=== PATIENT | female | born 1950 | race Caucasian/White ===

== ENCOUNTER 2021-05-20 17:30 | Inpatient (IN) | payer MEDICAID, SELFPAY ==
[2021-05-20] VITALS (11 sets, daily range): BP systolic 97–108; BP diastolic 43–69; PULSE 96–110; RESP 12–28; TEMP 36.6–37.3; O2SAT 92–98; BMI 22.6
--- NOTE | 2021-05-20 17:38 | CTR_ITS ---
PROCEDURE INFORMATION: Exam: CT Abdomen And Pelvis With Contrast Exam date and time: 05/20/2021 5:38 PM Age: 71 years old Clinical indication: Abdominal tenderness; Patient HX: Abdomen tenderness with weakness; Additional info: Eval for infection TECHNIQUE: Imaging protocol: Computed tomography of the abdomen and pelvis with contrast. Radiation optimization: All CT scans at this facility use at least one of these dose optimization techniques: automated exposure control; mA and/or kV adjustment per patient size (includes targeted exams where dose is matched to clinical indication); or iterative reconstruction. Contrast material: OMNI 300; Contrast volume: 95 ml; Contrast route: INTRAVENOUS (IV); COMPARISON: No relevant prior studies available. RADIATION DOSE METRICS: Total DLP (mGy-cm): 844.16 FINDINGS: Lungs: Patchy parenchymal airspace opacities of the inferior right middle lobe and the inferior lingula. Pleural spaces: Trace left pleural effusion. Heart: Multichamber cardiac dilation. Liver: Several simple liver cysts. Gallbladder and bile ducts: Normal. No calcified stones. No ductal dilation. Pancreas: Normal. No ductal dilation. Spleen: Normal. No splenomegaly. Adrenal glands: Normal. No mass. Kidneys and ureters: Mild hydroureteronephrosis right collecting system. Unremarkable left collecting system. No renal stones. Stomach and bowel: Circumferential substantial distal rectal wall thickening is present. On coronal images there appears to be a fistula extending along the right lateral wall of the rectum with luminal narrowing of the rectum most conspicuous on images 17-19. Additional diffuse wall thickening changes of the left colon are noted which are nonspecific given the nondistention. Perirectal fat stranding changes. Additional wall thickening is notable at the rectosigmoid colonic junction which is nonspecific. No dilation of small bowel loops. Appendix: No evidence of appendicitis. Intraperitoneal space: No loculated intraperitoneal fluid collection. No free air. Vasculature: Central pulmonary artery filling defects are identified in segmental pulmonary artery branches of the right lower lobe conspicuous on axial series 2, image 2. Scattered atherosclerosis. No acute vascular occlusion. No aneurysm. Lymph nodes: Unremarkable. No enlarged lymph nodes. Urinary bladder: Unremarkable as visualized. Reproductive: Unremarkable as visualized. Bones/joints: Unremarkable. No acute fracture. Soft tissues: Mild diffuse body wall anasarca. CT/CT abdomen pelvis w con* [id number] IMPRESSION: 1. Pulmonary embolism is suspected. Recommend correlation with CT angiogram of the chest. 2. Rectosigmoid colonic mass with fistula is suspected. Proctocolitis secondary to inflammatory bowel disease not excluded. Correlation with endoscopy recommended.
[2021-05-20 17:54] LABS: Basophils % 0.2 %; Lymphocytes # 0.3 10^3/uL (0.8-4.8); Lymphocytes % 2.3 %; Mean Corpuscular HGB Conc 23.2 g/dL (30.0-36.0); Mean Corpuscular Hemoglobin 14.8 pg (28.0-34.0); Mean Corpuscular Volume 63.7 fl (81-99); Mean Platelet Volume 9.7 fL (7.4-10.4); Monocytes # 0.1 10^3/uL (0.2-0.9); Monocytes % 0.5 %; Neutrophils # 11.64 10^3/uL (1.8-7.7); Neutrophils % 96.1 %; Nucleated Red Blood Cells # 0.1 /100WBC; Nucleated Red Blood Cells % 0.8 %; Platelet Count 255 10^3/cmm (130-400); Red Blood Count 2.84 10^6/uL (4.1-5.3); Red Cell Distribution Width 22.8 % (12.1-15.1); White Blood Count 12.1 10^3/uL (4.0-10.0)
[2021-05-20 18:16] LABS: Alanine Aminotransferase 6 U/L (0-33); Albumin Level 2.4 g/dL (3.5-5.2); Alkaline Phosphatase 123 IU/L (35-105); Anion Gap 21.2 (5-19); Aspartate Amino Transferase 13 U/L (0-32); Blood Urea Nitrogen 22 mg/dL (8-23); Calcium 8.1 mg/dL (8.5-10.5); Carbon Dioxide 19 mmol/L (22-29); Chloride 99 mmol/L (98-107); Creatinine Clr Calc Pharmacy 49.8831; Globulin 3.5 g/dL (1.3-4.6); Glucose 101 mg/dL (65-115); Lipase 15 U/L (13-60); Osmolality Calculated 285 mOsm/kg (285-295); Potassium 3.2 mmol/L (3.5-5.1); Sodium 136 mmol/L (136-145); Total Bilirubin 0.2 mg/dL (0.15-1.2); Total Protein 5.9 g/dL (6.6-8.7)
[2021-05-20 18:19] LABS: Hematocrit 18.1 % (37.0-47.0); Hemoglobin 4.2 g/dL (11.5-15.3); Slide Review Slide Review Perform
[2021-05-20] MEDS: famotidine 20 mg/2 mL INJ IVP (18:40)
[2021-05-20] MEDS: sodium chloride 0.9% 1,000 ML 999 ML IV ×2 (18:40→19:32)
--- NOTE | 2021-05-20 18:44 | ECG_ITS ---
[facility] Test Date: 2021-05-20 Pat Name: Teresa Jha Department: Room: Gender: Female Sustainability Communicator: : 1950 Requested By: Cj Ceja Order Number: [id number] Cisco MD: Gretel Kunz M.D. Measurements Intervals [place] Rate: 101 P: 73 AR: 135 QRS: 35 QRSD: 78 T: -88 QT: 306 QTc: 398 Interpretive Statements SINUS TACHYCARD[address] ST DEVIATION AND MODERATE T-WAVE ABNORMALITY, CONSIDER LATERAL ISCHEMIA [-0.1+ mV T-WAVE IN I/aVL/V5/V6] No previous ECG available for comparison Electronically Signed On 05-21-2021 5:53:23 CLINICAL APPEALS RN by Gretel Kunz M.D. [id number]
[2021-05-20 18:45] LABS: Lactate (Lactic Acid level) 5.8 mmol/L (0.5-2.2)
--- NOTE | 2021-05-20 18:48 | ED_ITS ---
HPI - Weakness General: Chief complaint: Weakness Stated complaint: weakness Time Seen by Provider: 05/20/21 18:04 Course Vital Signs: Vital signs: Vital Signs Temperature 99.2 F 05/20/21 17:31 Pulse Rate 110 H 05/20/21 17:31 Respiratory Rate 15 05/20/21 17:31 Blood Pressure 102/45 05/20/21 17:31 Pulse Oximetry 92 05/20/21 17:31 MDM - Weakness Lab Data : 05/20/21 16:52 05/20/21 16:52 Laboratory Results WBC 12.1 10^3/uL (4.0-10.0) H 05/20/21 16:52 RBC 2.84 10^6/uL (4.1-5.3) L 05/20/21 16:52 Hgb 4.2 g/dL (11.5-15.3) L* 05/20/21 16:52 Hct 18.1 % (37.0-47.0) L* 05/20/21 16:52 MCV 63.7 fl (81-99) L 05/20/21 16:52 MCH 14.8 pg (28.0-34.0) L 05/20/21 16:52 MCHC 23.2 g/dL (30.0-36.0) L 05/20/21 16:52 RDW 22.8 % (12.1-15.1) H 05/20/21 16:52 Plt Count 255 10^3/cmm (130-400) 05/20/21 16:52 MPV 9.7 fL (7.4-10.4) 05/20/21 16:52 Neut % (Auto) 96.1 % 05/20/21 16:52 Lymph % (Auto) 2.3 % 05/20/21 16:52 [place] % (Auto) 0.5 % 05/20/21 16:52 Eos % (Auto) 0.0 % 05/20/21 16:52 Baso % (Auto) 0.2 % 05/20/21 16:52 Neut # (Auto) 11.64 10^3/uL (1.8-7.7) H 05/20/21 16:52 Lymph # (Auto) 0.3 10^3/uL (0.8-4.8) L 05/20/21 16:52 [place] # (Auto) 0.1 10^3/uL (0.2-0.9) L 05/20/21 16:52 Eos # (Auto) 0.0 10^3/uL (0.0-0.8) 05/20/21 16:52 Baso # (Auto) 0.0 10^3/uL (0.0-0.1) 05/20/21 16:52 Nucleated RBC % (auto) 0.8 % 05/20/21 16:52 Nucleated RBCs # 0.1 /100WBC 05/20/21 16:52 Sodium 136 mmol/L (136-145) 05/20/21 16:52 Potassium 3.2 mmol/L (3.5-5.1) L 05/20/21 16:52 Chloride 99 mmol/L (98-107) 05/20/21 16:52 Carbon Dioxide 19 mmol/L (22-29) L 05/20/21 16:52 Anion Gap 21.2 (5-19) H 05/20/21 16:52 BUN 22 mg/dL (8-23) 05/20/21 16:52 Creatinine 0.8 mg/dL (0.5-0.9) 05/20/21 16:52 GFR Calculation Not Reportable 05/20/21 16:52 Glucose 101 mg/dL (65-115) 05/20/21 16:52 Calculated Osmolality 285 mOsm/kg (285-295) 05/20/21 16:52 Lactate 5.8 mmol/L (0.5-2.2) H* 05/20/21 18:13 Calcium 8.1 mg/dL (8.5-10.5) L 05/20/21 16:52 Total Bilirubin 0.2 mg/dL (0.15-1.2) 05/20/21 16:52 AST 13 U/L (0-32) 05/20/21 16:52 ALT 6 U/L (0-33) 05/20/21 16:52 Alkaline Phosphatase 123 IU/L (35-105) H 05/20/21 16:52 Total Protein 5.9 g/dL (6.6-8.7) L 05/20/21 16:52 Albumin 2.4 g/dL (3.5-5.2) L 05/20/21 16:52 Globulin 3.5 g/dL (1.3-4.6) 05/20/21 16:52 Lipase 15 U/L (13-60) 05/20/21 16:52 Discharge Plan Discharge Condition: Stable Coding Level of Care Code ED Supply Chain Buyer for Berenice Penaloza
--- NOTE | 2021-05-20 18:53 | ED_ITS ---
HPI - General Adult General: Chief complaint: Weakness Stated complaint: weakness Time Seen by Provider: 05/20/21 18:04 History of Present Illness: Patient is a six 71-year-old female with no known past medical history presents the emergency room with concerns of for diarrhea for the last 2 years now getting worse. Patient tells me that yesterday she had a syncopal episode while at home. Patient then presents the emergency room for evaluation. Patient reports right-sided facial bruise. Patient denies any associate chest pain, shortness breath or palpitations, nausea/vomiting, fever/chills. Patient has been having watery mildly bloody diarrhea for the last 2 years. Patient denies change in stool consistency. Patient has any recent antibiotics. No recent anticoagulation use. Onset:2 days syncope/fall, 2 years of chronic diarrhea Duration:ongoing Location:home Severity:moderate Associated symptoms: Deny chest pain, dyspnea, nausea, rash, palpitations or vomiting Review of Systems Const: Denies: fever(s) or chills Eyes: Denies: change in vision ENMT: Denies: mouth pain Card: Denies: chest pain or palpitations Resp: Denies: dyspnea or non-productive cough GI: Reports: diarrhea; Denies: abdominal pain, nausea or vomiting : Denies: dysuria Musc: Denies: extremity pain Skin/Breast: Denies: rash or new lesions Neuro: Reports: other (+syncope); Denies: weakness in extremities Psych: Reports: other (Normal mood) Kevyn/Lymph: Denies: easy bruising PFS ED PFSH: Medical History (Updated 05/20/21 @ 22:42 by Cj Ceja MD) Diarrhea Social History (Updated 05/20/21 @ 18:56 by Cj Ceja MD) Smoking and tobacco status: never smoked Alcohol intake: never Substance/Drug Use: never Physical Exam Const: COMMON NORMALS: alert HENMT: COMMON NORMALS: atraumatic HEAD & SCALP: atraumatic MOUTH: moist mucous membranes abnormal Eye: COMMON NORMALS: EOMs intact bilaterally CONJUNCTIVA: Yes other (+pale conjunctiva) Neck/C-Spine: COMMON NORMALS: full ROM and supple Resp: COMMON NORMALS: normal respiratory effort and clear to auscultation bilaterally AUSCULTATION: clear to auscultation bilaterally Cardio: RATE: tachycardic GI: COMMON NORMALS: Soft to palpation and non-tender PALPATION: Yes Soft to palpation OTHER: No focal TTP. NO guarding rebound, guarding, rigidity. No CVA tenderness to percussion. Neg Steiner/Neg McBurney's point tenderness, no suprabupic tenderness to palpation. : OTHER: +hemoocult wine color stool Extremity: COMMON NORMALS: full ROM Neuro: SENSORIUM/ORIENTATION: Yes alert MOTOR EXAM: No Abnormal motor strength present and Other motor observations present (no focal motor deficits) Psych: COMMON NORMALS: speech normal SPEECH: Yes normal speech MOOD & AFFECT: Yes euthymic mood Skin: NARRATIVE SKIN EXAM: +R facial periorbital abrsion Course Vital Signs: Vital signs: Vital Signs Temperature 97.9 F 05/20/21 21:36 Pulse Rate 96 05/20/21 22:00 Respiratory Rate 16 05/20/21 22:00 Blood Pressure 97/53 05/20/21 22:00 Pulse Oximetry 98 05/20/21 22:00 MDM - General Adult Medical Decision Making Patient is a 71-year-old female with history chronic diarrhea who presents the emergency room for concerns for recent syncope 2 days ago with fall. On physical exam, patient appears to be dry, has pale conjunctiva and is mildy tachycardiac. No focal abdominal tenderness palpation. +hemoocult brown and wine color stool. WBC 12.1. Hemoglobin 4.2. Patient received 2 units of hemoglobin in the emergency room. K of 3.2. S/p 40mEQ of K PO. Initial lactate of 5.8 in the setting of complaints of lower abdominal pain, will cover empirically with vancomycin and Zosyn. S/p 2L of NS CT abdomen pelvis showed rectosigmoid inflammation with fistula. Given elevated lactic acid and low hemoglobin and PE filling defects on CT abd+pelvis, decision was made to order CTA chest+abd. patient was found to have bilateral PE. No signs of bowel ischemia or acute GI bleed. Given low hemoglobin, decision was made to defer anticoagulation. No signs of massive or submassive PE. Case discussed with Dr. Ovalles for rectosigmoid fistula. Provider will follow patient upo admission. Disposition: admission Lab Data : 05/20/21 16:52 05/20/21 16:52 Radiology Impressions Abdomen/Pelvis CT 05/20/21 17:38 IMPRESSION: 1. Pulmonary embolism is suspected. Recommend correlation with CT angiogram of the chest. 2. Rectosigmoid colonic mass with fistula is suspected. Proctocolitis secondary to inflammatory bowel disease not excluded. Correlation with endoscopy recommended. ADDENDUM: 05/20/212012 THIS REPORT CONTAINS FINDINGS THAT MAY BE CRITICAL TO PATIENT CARE. The findings were verbally communicated via telephone conference with CJ CEJA at 8:11 PM OPERATOR ASSISTANT I CEMENTING on 05/20/2021. The findings were acknowledged and understood. Face CT 05/20/21 18:53 IMPRESSION: 1. No acute fracture of the facial bones. 2. Mild mucoperiosteal thickening in the the right and left ethmoid and maxillary sinuses. 3. Incidental/nonacute findings are listed in the report. Head CT 05/20/21 18:53 IMPRESSION: 1. No acute abnormality of the brain. 2. Mild mucoperiosteal thickening in the the visualized ethmoid sinuses. 3. Incidental/nonacute findings are listed in the report. Chest/Abdomen/Pelvis CTA 05/20/21 19:55 IMPRESSION: 1. Positive for bilateral pulmonary embolism. 2. No convincing CT angiogram evidence of significant right heart strain. 3. Clustered tree-in-bud nodular foci in the lateral right upper lobe which could represent post infectious change, or represent acute pneumonitis features. IMPRESSION: 1. Negative for active gastrointestinal bleeding. 2. Redemonstration of possible rectosigmoid colonic mass and possible rectal/perirectal fistula. Laboratory Results WBC 12.1 10^3/uL (4.0-10.0) H 05/20/21 16:52 RBC 2.84 10^6/uL (4.1-5.3) L 05/20/21 16:52 Hgb 4.2 g/dL (11.5-15.3) L* 05/20/21 16:52 Hct 18.1 % (37.0-47.0) L* 05/20/21 16:52 MCV 63.7 fl (81-99) L 05/20/21 16:52 MCH 14.8 pg (28.0-34.0) L 05/20/21 16:52 MCHC 23.2 g/dL (30.0-36.0) L 05/20/21 16:52 RDW 22.8 % (12.1-15.1) H 05/20/21 16:52 Plt Count 255 10^3/cmm (130-400) 05/20/21 16:52 MPV 9.7 fL (7.4-10.4) 05/20/21 16:52 Neut % (Auto) 96.1 % 05/20/21 16:52 Lymph % (Auto) 2.3 % 05/20/21 16:52 [place] % (Auto) 0.5 % 05/20/21 16:52 Eos % (Auto) 0.0 % 05/20/21 16:52 Baso % (Auto) 0.2 % 05/20/21 16:52 Neut # (Auto) 11.64 10^3/uL (1.8-7.7) H 05/20/21 16:52 Lymph # (Auto) 0.3 10^3/uL (0.8-4.8) L 05/20/21 16:52 [place] # (Auto) 0.1 10^3/uL (0.2-0.9) L 05/20/21 16:52 Eos # (Auto) 0.0 10^3/uL (0.0-0.8) 05/20/21 16:52 Baso # (Auto) 0.0 10^3/uL (0.0-0.1) 05/20/21 16:52 Nucleated RBC % (auto) 0.8 % 05/20/21 16:52 Nucleated RBCs # 0.1 /100WBC 05/20/21 16:52 Sodium 136 mmol/L (136-145) 05/20/21 16:52 Potassium 3.2 mmol/L (3.5-5.1) L 05/20/21 16:52 Chloride 99 mmol/L (98-107) 05/20/21 16:52 Carbon Dioxide 19 mmol/L (22-29) L 05/20/21 16:52 Anion Gap 21.2 (5-19) H 05/20/21 16:52 BUN 22 mg/dL (8-23) 05/20/21 16:52 Creatinine 0.8 mg/dL (0.5-0.9) 05/20/21 16:52 GFR Calculation Not Reportable 05/20/21 16:52 Glucose 101 mg/dL (65-115) 05/20/21 16:52 Calculated Osmolality 285 mOsm/kg (285-295) 05/20/21 16:52 Lactate 5.8 mmol/L (0.5-2.2) H* 05/20/21 18:13 Calcium 8.1 mg/dL (8.5-10.5) L 05/20/21 16:52 Total Bilirubin 0.2 mg/dL (0.15-1.2) 05/20/21 16:52 AST 13 U/L (0-32) 05/20/21 16:52 ALT 6 U/L (0-33) 05/20/21 16:52 Alkaline Phosphatase 123 IU/L (35-105) H 05/20/21 16:52 Troponin T Baseline 22 ng/L (0-10) H 05/20/21 16:52 Total Protein 5.9 g/dL (6.6-8.7) L 05/20/21 16:52 Albumin 2.4 g/dL (3.5-5.2) L 05/20/21 16:52 Globulin 3.5 g/dL (1.3-4.6) 05/20/21 16:52 Lipase 15 U/L (13-60) 05/20/21 16:52 Blood Type A Positive 05/20/21 18:28 Rho(D) Type Positive 05/20/21 18:28 Antibody Screen Negative 05/20/21 18:28 Crossmatch See Detail 05/20/21 18:28 Imaging Data Other Imaging: Radiologist's impression: [address] [address] [address] Scan Report Signed Patient: Teresa Jha Unit #: [id number] : 1950 Age/Sex: 71 / F ADM Date: 05/20/21 Loc: ER Room/Bed: Attending Dr: Ordering Provider/Ordering MD: Cj Ceja MD Date of Service: 05/20/21 Procedure(s): CT angio chest abdomen pelvis Accession Number(s): [id number] Report Number: [id number] PROCEDURE INFORMATION: Exam: CTA Chest With Contrast Exam date and time: 05/20/2021 7:55 PM Age: 71 years old Clinical indication: Abnormal findings; Abnormal diagnostic tests; Abnormal ekg; Abnormal lab test; Other: N/a; Patient HX: Very low hemoglobin. Bloody diarrhea. ; Additional info: Eval for bleeding TECHNIQUE: Imaging protocol: Computed tomographic angiography of the chest with contrast. 3D rendering (Not supervised by radiologist): MIP and/or 3D reconstructed images were created by the technologist. Radiation optimization: All CT scans at this facility use at least one of these dose optimization techniques: automated exposure control; mA and/or kV adjustment per patient size (includes targeted exams where dose is matched to clinical indication); or iterative reconstruction. Contrast material: OMNI 350; Contrast volume: 95 ml; Contrast route: INTRAVENOUS (IV);? COMPARISON: CT abdomen pelvis w con* [id number] 05/20/2021 7:11 PM RADIATION DOSE METRICS: Total DLP (mGy-cm): 955.02 FINDINGS: Pulmonary arteries: Bilateral pulmonary artery filling defects are identified with lobar and segmental level defects involving bilateral lower lobes and also left upper lobe. Aorta: Unremarkable. No aortic aneurysm. No aortic dissection. Lungs: [id number] severity emphysematous lung changes. Mild diffuse bronchial wall thickening. Clustered tree-in-bud nodular foci in the lateral right upper lobe. Calcified granulomas in the right middle lobe. Pleural spaces: Trace bilateral pleural effusions. Heart: There is multichamber cardiac dilation most significantly involving left ventricle. Negative for pericardial effusion. Heart RV/LV ratio: RV/LV ratio is less than 0.9. Lymph nodes: Unremarkable. No enlarged lymph nodes. Diaphragm: Moderate sized hiatal hernia. Bones/joints: Unremarkable. No acute fracture. Soft tissues: Unremarkable. PROCEDURE INFORMATION: Exam: CTA Abdomen and Pelvis With Contrast Exam date and time: 05/20/2021 7:55 PM Age: 71 years old Clinical indication: Abnormal findings; Abnormal diagnostic tests; Abnormal ekg; Abnormal lab test; Other: N/a; Patient HX: Very low hemoglobin. Bloody diarrhea. ; Additional info: Eval for bleeding TECHNIQUE: Imaging protocol: Computed tomographic angiography of the abdomen and pelvis with contrast material. 3D rendering (Not supervised by radiologist): MIP and/or 3D reconstructed images were created by the technologist. Radiation optimization: All CT scans at this facility use at least one of these dose optimization techniques: automated exposure control; mA and/or kV adjustment per patient size (includes targeted exams where dose is matched to clinical indication); or iterative reconstruction. Contrast material: OMNI 350; Contrast volume: 95 ml; Contrast route: INTRAVENOUS (IV);? COMPARISON: CT abdomen pelvis w con* [id number] 05/20/2021 7:11 PM RADIATION DOSE METRICS: Total DLP (mGy-cm): 955.02 FINDINGS: Diaphragm: Moderate to large size hiatal hernia. Aorta: Scattered plaques of abdominal aorta. No aneurysm. No dissection. Celiac trunk and mesenteric arteries: No occlusion or significant stenosis. Renal arteries: No occlusion or significant stenosis. Right iliac arteries: No occlusion or significant stenosis. Left iliac arteries: No occlusion or significant stenosis. Liver: Multiple simple cysts within the liver. Gallbladder and bile ducts: Unremarkable. No calcified stones. No ductal dilation. Pancreas: Unremarkable. No mass. No ductal dilation. Spleen: Unremarkable. No splenomegaly. Adrenal glands: Unremarkable. No mass. Kidneys and ureters: Mild severity right-sided hydroureteronephrosis with loss of visualization of the distal ureter segment. Stomach and bowel: Thick-walled appearance of the rectosigmoid colon. Possible rectal fistula in the right lateral and posterior wall. Perirectal fat stranding changes. No extravasation of contrast into the bowel lumen identified. Appendix: No evidence of appendicitis. Intraperitoneal space: No free intraperitoneal air identified. Lymph nodes: Unremarkable. No enlarged lymph nodes. Urinary bladder: Unremarkable. No mass. Reproductive: Unremarkable as visualized. Bones/joints: No acute fracture. No dislocation. Soft tissues: Mild body wall anasarca. CT/CT angio chest abdomen pelvis IMPRESSION: 1. Positive for bilateral pulmonary embolism. 2. No convincing CT angiogram evidence of significant right heart strain. 3. Clustered tree-in-bud nodular foci in the lateral right upper lobe which could represent post infectious change, or represent acute pneumonitis features. ? ? IMPRESSION: 1. Negative for active gastrointestinal bleeding. 2. Redemonstration of possible rectosigmoid colonic mass and possible rectal/perirectal fistula. ? Dictated By: Tyler Greene Signed By: Tyler Greene Signed Date/Time: 05/20/212237 DD/ 54 Discharge Plan Discharge Patient Disposition: Admitted As Inpatient Clinical Impression: Anemia, Ulcerative rectosigmoiditis with fistula, Acute proctitis, Syncope, Diarrhea, Pulmonary embolism, Hypokalemia, Hypocalcemia Condition: Stable Coding Level of Care Code ED Resource Room Special Education Teacher for Chg Fwd Exam Comprehensive
--- NOTE | 2021-05-20 18:53 | CTR_ITS ---
PROCEDURE INFORMATION: Exam: CT Maxillofacial Without Contrast Exam date and time: 05/20/2021 6:53 PM Age: 71 years old Clinical indication: Injury or trauma; Blunt trauma (contusions or hematomas); Orbit/periorbital; Right; Patient HX: Fall with laceration to R periorbital area TECHNIQUE: Imaging protocol: Computed tomography images of the face without contrast. Sagittal and coronal reformatted images were created and reviewed. Radiation optimization: All CT scans at this facility use at least one of these dose optimization techniques: automated exposure control; mA and/or kV adjustment per patient size (includes targeted exams where dose is matched to clinical indication); or iterative reconstruction. COMPARISON: CT head wo con* [id number] 05/20/2021 7:06 PM RADIATION DOSE METRICS: Total DLP (mGy-cm): 673.56 FINDINGS: Orbital cavity: Orbits are normal. Globes are unremarkable. Bones/joints: Mild degenerative changes in the visualized spine. Right and left temporomandibular joints are intact. Right and left pterygoid plates are intact. No acute fracture. Paranasal sinuses: Mild mucoperiosteal thickening in the the right and left ethmoid and maxillary sinuses. Other paranasal sinuses are clear. Mastoid air cells: Visualized mastoid air cells are clear. Soft tissues: .No soft tissue swelling. No radiopaque foreign body. Vasculature: Atherosclerotic changes in the visualized arteries. Brain: No acute intracranial hemorrhage. No acute infarct. No intra-axial or extra-axial masses. Mcdaniels-white matter differentiation is preserved. No cerebral edema. No extra-axial fluid collections. No midline shift. The nasal septum is midline. Ventricles: No hydrocephalus. Dental: The patient is missing multiple teeth. Cavitary disease and periodontal disease in multiple remaining teeth. CT/CT facial bones wo con* [id number] IMPRESSION: 1. No acute fracture of the facial bones. 2. Mild mucoperiosteal thickening in the the right and left ethmoid and maxillary sinuses. 3. Incidental/nonacute findings are listed in the report.
--- NOTE | 2021-05-20 18:53 | CTR_ITS ---
PROCEDURE INFORMATION: Exam: CT Head Without Contrast Exam date and time: 05/20/2021 6:53 PM Age: 71 years old Clinical indication: Injury or trauma; Fall; Blunt trauma (contusions or hematomas) TECHNIQUE: Imaging protocol: Computed tomography of the head without contrast. Sagittal and coronal reformatted images were created and reviewed. Radiation optimization: All CT scans at this facility use at least one of these dose optimization techniques: automated exposure control; mA and/or kV adjustment per patient size (includes targeted exams where dose is matched to clinical indication); or iterative reconstruction. COMPARISON: No relevant prior studies available. RADIATION DOSE METRICS: Total DLP (mGy-cm): 721.1 FINDINGS: Brain: No acute intracranial hemorrhage. No acute infarct. No intra-axial or extra-axial masses. Mcdaniels-white matter differentiation is preserved. No cerebral edema. No extra-axial fluid collections. No midline shift. No evidence for Chiari 1 malformation. Cerebral ventricles: No hydrocephalus. Paranasal sinuses: Mild mucoperiosteal thickening in the the visualized ethmoid sinuses. Mastoid air cells: Visualized mastoid air cells are clear. Orbital cavity: No acute abnormality in the visualized orbits. Vasculature: Atherosclerotic changes in the visualized arteries. Bones/joints: No acute fracture. Soft tissues: No acute abnormality of the extracranial soft tissues. CT/CT head wo con* [id number] IMPRESSION: 1. No acute abnormality of the brain. 2. Mild mucoperiosteal thickening in the the visualized ethmoid sinuses. 3. Incidental/nonacute findings are listed in the report.
[2021-05-20] MEDS: iohexol 300 mg/mL 100 mL Btl IV (19:07)
[2021-05-20] MEDS: piperacillin-tazobactam 4.5 GM in sodium chloride 0.9% (plus) 50 ML IV (19:21)
[2021-05-20] MEDS: vancomycin 1,000 MG in sodium chloride 0.9% 250 ML 250 MG IV (19:21)
--- NOTE | 2021-05-20 19:55 | CTR_ITS ---
PROCEDURE INFORMATION: Exam: CTA Chest With Contrast Exam date and time: 05/20/2021 7:55 PM Age: 71 years old Clinical indication: Abnormal findings; Abnormal diagnostic tests; Abnormal ekg; Abnormal lab test; Other: N/a; Patient HX: Very low hemoglobin. Bloody diarrhea. ; Additional info: Eval for bleeding TECHNIQUE: Imaging protocol: Computed tomographic angiography of the chest with contrast. 3D rendering (Not supervised by radiologist): MIP and/or 3D reconstructed images were created by the technologist. Radiation optimization: All CT scans at this facility use at least one of these dose optimization techniques: automated exposure control; mA and/or kV adjustment per patient size (includes targeted exams where dose is matched to clinical indication); or iterative reconstruction. Contrast material: OMNI 350; Contrast volume: 95 ml; Contrast route: INTRAVENOUS (IV); COMPARISON: CT abdomen pelvis w con* [id number] 05/20/2021 7:11 PM RADIATION DOSE METRICS: Total DLP (mGy-cm): 955.02 FINDINGS: Pulmonary arteries: Bilateral pulmonary artery filling defects are identified with lobar and segmental level defects involving bilateral lower lobes and also left upper lobe. Aorta: Unremarkable. No aortic aneurysm. No aortic dissection. Lungs: [id number] severity emphysematous lung changes. Mild diffuse bronchial wall thickening. Clustered tree-in-bud nodular foci in the lateral right upper lobe. Calcified granulomas in the right middle lobe. Pleural spaces: Trace bilateral pleural effusions. Heart: There is multichamber cardiac dilation most significantly involving left ventricle. Negative for pericardial effusion. Heart RV/LV ratio: RV/LV ratio is less than 0.9. Lymph nodes: Unremarkable. No enlarged lymph nodes. Diaphragm: Moderate sized hiatal hernia. Bones/joints: Unremarkable. No acute fracture. Soft tissues: Unremarkable. PROCEDURE INFORMATION: Exam: CTA Abdomen and Pelvis With Contrast Exam date and time: 05/20/2021 7:55 PM Age: 71 years old Clinical indication: Abnormal findings; Abnormal diagnostic tests; Abnormal ekg; Abnormal lab test; Other: N/a; Patient HX: Very low hemoglobin. Bloody diarrhea. ; Additional info: Eval for bleeding TECHNIQUE: Imaging protocol: Computed tomographic angiography of the abdomen and pelvis with contrast material. 3D rendering (Not supervised by radiologist): MIP and/or 3D reconstructed images were created by the technologist. Radiation optimization: All CT scans at this facility use at least one of these dose optimization techniques: automated exposure control; mA and/or kV adjustment per patient size (includes targeted exams where dose is matched to clinical indication); or iterative reconstruction. Contrast material: OMNI 350; Contrast volume: 95 ml; Contrast route: INTRAVENOUS (IV); COMPARISON: CT abdomen pelvis w con* [id number] 05/20/2021 7:11 PM RADIATION DOSE METRICS: Total DLP (mGy-cm): 955.02 FINDINGS: Diaphragm: Moderate to large size hiatal hernia. Aorta: Scattered plaques of abdominal aorta. No aneurysm. No dissection. Celiac trunk and mesenteric arteries: No occlusion or significant stenosis. Renal arteries: No occlusion or significant stenosis. Right iliac arteries: No occlusion or significant stenosis. Left iliac arteries: No occlusion or significant stenosis. Liver: Multiple simple cysts within the liver. Gallbladder and bile ducts: Unremarkable. No calcified stones. No ductal dilation. Pancreas: Unremarkable. No mass. No ductal dilation. Spleen: Unremarkable. No splenomegaly. Adrenal glands: Unremarkable. No mass. Kidneys and ureters: Mild severity right-sided hydroureteronephrosis with loss of visualization of the distal ureter segment. Stomach and bowel: Thick-walled appearance of the rectosigmoid colon. Possible rectal fistula in the right lateral and posterior wall. Perirectal fat stranding changes. No extravasation of contrast into the bowel lumen identified. Appendix: No evidence of appendicitis. Intraperitoneal space: No free intraperitoneal air identified. Lymph nodes: Unremarkable. No enlarged lymph nodes. Urinary bladder: Unremarkable. No mass. Reproductive: Unremarkable as visualized. Bones/joints: No acute fracture. No dislocation. Soft tissues: Mild body wall anasarca. CT/CT angio chest abdomen pelvis IMPRESSION: 1. Positive for bilateral pulmonary embolism. 2. No convincing CT angiogram evidence of significant right heart strain. 3. Clustered tree-in-bud nodular foci in the lateral right upper lobe which could represent post infectious change, or represent acute pneumonitis features. IMPRESSION: 1. Negative for active gastrointestinal bleeding. 2. Redemonstration of possible rectosigmoid colonic mass and possible rectal/perirectal fistula.
[2021-05-20 20:12] LABS: Troponin(5th) Baseline 22 ng/L (0-10)
--- NOTE | 2021-05-20 20:46 | PC.NURSE ---
verified blood with Gregoria MADDEN pt signed consent to receive blood
--- NOTE | 2021-05-20 20:54 | ECG_ITS ---
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 Measurements Intervals [place] Rate: 105 P: 83 PA: 120 QRS: 49 QRSD: 75 T: 37 QT: 350 QTc: 464 Interpretive Statements SINUS TACHYCARDIA WITH FREQUENT SUPRAVENTRICULAR PREMATURE COMPLEXES IN A BIGEMINAL PATTERN NONSPECIFIC ST & T-WAVE ABNORMALITY ABNORMAL RHYTHM ECG Compared to ECG 05/20/2021 19:29:19 Possible ischemia no longer present T-wave abnormality still present Electronically Signed On 05-21-2021 6:02:28 SAUSAGE STUFFER by Gretel Kunz M.D. [id number]
[2021-05-20] MEDS: iohexol 350 mg/mL 100 mL Btl IV (22:12)
[2021-05-21] VITALS (45 sets, daily range): BP systolic 96–152; BP diastolic 48–92; PULSE 62–101; RESP 13–36; TEMP 36.2–37.4; O2SAT 87–98; BMI 20.2
--- NOTE | 2021-05-21 00:14 | USR_ITS ---
PROCEDURE INFORMATION: Exam: US Duplex Lower Extremity Veins, Bilateral Exam date and time: 05/21/2021 12:14 AM Age: 71 years old Clinical indication: Condition or disease; Other: Pulmonary embolism; Additional info: B/l pe, evaluate for dvt TECHNIQUE: Imaging protocol: Real-time Duplex ultrasound of the bilateral extremities with 2-D zee scale, color Doppler flow and spectral waveform analysis with image documentation. Complete exam focused on the bilateral lower extremity veins. COMPARISON: CT abdomen pelvis w con* [id number] 05/20/2021 7:11 PM FINDINGS: Right deep veins: Unremarkable. The common femoral, femoral, proximal profunda femoral and popliteal veins are patent without thrombus. Normal Doppler waveforms. Normal compressibility and/or augmentation response. Right superficial veins: Saphenofemoral junction is patent without thrombus. Left deep veins: Occlusive thrombus is identified throughout left femoral vein and left popliteal vein which begins just below the left saphenous femoral junction. Flow is detected in the left peroneal and posterior tibial veins of the calf. Left superficial veins: Saphenofemoral junction is patent without thrombus. Soft tissues: Unremarkable. US/CV venous duplex [facility] [id number] IMPRESSION: Positive for left lower extremity deep venous system thrombosis involving femoral and popliteal veins.
--- NOTE | 2021-05-21 00:54 | ECG_ITS ---
[facility] Test Date: 2021-05-21 Pat Name: Teresa Jha Department: Room: 104 Gender: Female Early Childhood Services Coordinator: : 1950 Requested By: Cj Ceja Order Number: [id number] Cisco MD: Kelton Goins M.D. Measurements Intervals [place] Rate: 94 P: 80 TX: 120 QRS: 43 QRSD: 71 T: 49 QT: 344 QTc: 432 Interpretive Statements SINUS RHYTHM WITH OCCASIONAL SUPRAVENTRICULAR PREMATURE COMPLEXES MINIMAL ST DEPRESSION [0.025+ mV ST DEPRESSION] Compared to ECG 05/20/2021 20:56:38 ST (T wave) deviation now present Sinus tachycardia no longer present T-wave abnormality no longer present Electronically Signed On 05-23-2021 15:57:37 CDT by Kelton Goins M.D. [email or web address]/[id number]
[2021-05-21 01:17] LABS: Troponin 5 6HR 42.74 ng/L (0-10)
[2021-05-21 01:20] LABS: Troponin 5 6HR Delta 20.74 ng/L (0-12)
--- NOTE | 2021-05-21 01:21 | P.HP_ITS ---
Providers/Chief Complaint Admitting Physician: Vira Garnett MD Chief Complaint: weakness History of Present Illness Teresa Jha is a 71 year old female without known significant past medical history who presented to the emergency room with chief complains of generalized malaise and fatigue and a syncopal episode at home yesterday. She had some facial bruising and presented to the ER for further evaluation. He denies any complaint of chest pain dyspnea palpitations at the time of her syncopal episode. There are no focal neuro deficits. Review of systems is positive for chronic diarrhea, patient estimates this has been going on for at least the last 1 to 2 years. Loss of weight present but unable to estimate. FOBT in the ER was positive today. Incidentally patient was noted to have a hemoglobin of 4.2. CT of the abdomen showed possibility of a rectal mass with surrounding fistulization concerning for malignancy. Not had a colonoscopy in the past. Additionally also incidentally noted to have bilateral PE. Currently saturating 94% on room air. Denies any dyspnea or chest pain. Review of Systems General: Reports: 10 or more systems reviewed and unremarkable except in HPI and below Const: Denies: fever(s), chills or body aches Eyes: Denies: change in vision, blurry vision or photophobia ENMT: Reports: hoarseness; Denies: throat pain, enlarged tonsils, odynophagia or nasal congestion Card: Denies: chest pain, palpitations, irregular heart rhythm, edema, swelling of feet/ankles, lightheadedness, pre-syncope, dyspnea on exertion or orthopnea Resp: Denies: dyspnea, productive cough, non-productive cough, wheezing, stridor, pain on inspiration, change in phlegm color, hemoptysis or chest congestion GI: Denies: abdominal pain, nausea, vomiting, hematemesis, coffee ground emesis, dysphagia, heartburn, diarrhea, constipation, GI cramping, change in stool character, hematochezia or melena : Denies: flank pain, difficulty voiding, dysuria, urinary frequency, urinary urgency, urinary hesitancy or hematuria Musc: Denies: neck pain, back pain, extremity pain, joint swelling, joint warmth or deformity Neuro: Denies: headache(s), numbness in extremities, weakness in extremities, sensory changes, difficulty walking, frequent falls, dizziness, vertigo, behavioral changes, Slurred speech present or seizure-like activity Psych: Denies: anxiety, depression, suicidal ideation or homicidal ideation Endo: Denies: polyuria, polydipsia, tired all the time, cold intolerance or hot flashes Kevyn/Lymph: Denies: easy bruising or easy bleeding Medications/Allergies Home Medications Medication Instructions Recorded Confirmed Last Taken Type cetirizine 10 mg tablet (Zyrtec) 10 mg PO DAILY 05/20/21 05/20/21 05/19/21 History Allergies Allergy/AdvReac Type Severity Reaction Status Date / Time No Known Allergies Allergy Verified 05/20/21 20:11 PFSH Acute PFSH: Medical History Diarrhea Social History Smoking and tobacco status: never smoked Alcohol intake: never Substance/Drug Use: never Vitals/I&O/Wt Last Vital Signs Temp 98.7 F 05/21/21 00:20 Pulse 101 H 05/21/21 00:20 Resp 28 H 05/21/21 00:20 BP 96/50 05/21/21 00:20 Pulse Ox 98 05/21/21 00:20 05/20/21 05/20/21 05/21/21 14:59 22:59 06:59 Intake Total 350 / 350 0 / 350 Balance 350 / 350 0 / 350 Weight last 48 hrs Weight 54.431 kg Physical Exam Narrative: GEN: Awake, alert and oriented, no acute distress CVS: S1S2 N RS: CTA B/L Abd: Soft, nt/nd , bs+ 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 Pulmonary embolism is suspected. Recommend correlation with CT angiogram of the chest. 2. Rectosigmoid colonic mass with fistula is suspected. Proctocolitis secondary to inflammatory bowel disease not excluded. Correlation with endoscopy recommended. ADDENDUM: 05/20/212012 THIS REPORT CONTAINS FINDINGS THAT MAY BE CRITICAL TO PATIENT CARE. The findings were verbally communicated via telephone conference with TC MEJIA at 8:11 PM FOUNTAIN VENDING MECHANIC on 05/20/2021. The findings were acknowledged and understood. Face CT 05/20/21 18:53 IMPRESSION: 1. No acute fracture of the facial bones. 2. Mild mucoperiosteal thickening in the the right and left ethmoid and maxillary sinuses. 3. Incidental/nonacute findings are listed in the report. Head CT 05/20/21 18:53 IMPRESSION: 1. No acute abnormality of the brain. 2. Mild mucoperiosteal thickening in the the visualized ethmoid sinuses. 3. Incidental/nonacute findings are listed in the report. Chest/Abdomen/Pelvis CTA 05/20/21 19:55 IMPRESSION: 1. Positive for bilateral pulmonary embolism. 2. No convincing CT angiogram evidence of significant right heart strain. 3. Clustered tree-in-bud nodular foci in the lateral right upper lobe which could represent post infectious change, or represent acute pneumonitis features. IMPRESSION: 1. Negative for active gastrointestinal bleeding. 2. Redemonstration of possible rectosigmoid colonic mass and possible rectal/perirectal fistula. Venous Duplex 05/21/21 00:14 IMPRESSION: Positive for left lower extremity deep venous system thrombosis involving femoral and popliteal veins. Laboratory Results WBC 12.1 10^3/uL (4.0-10.0) H 05/20/21 16:52 RBC 2.84 10^6/uL (4.1-5.3) L 05/20/21 16:52 Hgb 4.2 g/dL (11.5-15.3) L* 05/20/21 16:52 Hct 18.1 % (37.0-47.0) L* 05/20/21 16:52 MCV 63.7 fl (81-99) L 05/20/21 16:52 MCH 14.8 pg (28.0-34.0) L 05/20/21 16:52 MCHC 23.2 g/dL (30.0-36.0) L 05/20/21 16:52 RDW 22.8 % (12.1-15.1) H 05/20/21 16:52 Plt Count 255 10^3/cmm (130-400) 05/20/21 16:52 MPV 9.7 fL (7.4-10.4) 05/20/21 16:52 Neut % (Auto) 96.1 % 05/20/21 16:52 Lymph % (Auto) 2.3 % 05/20/21 16:52 [place] % (Auto) 0.5 % 05/20/21 16:52 Eos % (Auto) 0.0 % 05/20/21 16:52 Baso % (Auto) 0.2 % 05/20/21 16:52 Neut # (Auto) 11.64 10^3/uL (1.8-7.7) H 05/20/21 16:52 Lymph # (Auto) 0.3 10^3/uL (0.8-4.8) L 05/20/21 16:52 [place] # (Auto) 0.1 10^3/uL (0.2-0.9) L 05/20/21 16:52 Eos # (Auto) 0.0 10^3/uL (0.0-0.8) 05/20/21 16:52 Baso # (Auto) 0.0 10^3/uL (0.0-0.1) 05/20/21 16:52 Nucleated RBC % (auto) 0.8 % 05/20/21 16:52 Nucleated RBCs # 0.1 /100WBC 05/20/21 16:52 Sodium 136 mmol/L (136-145) 05/20/21 16:52 Potassium 3.2 mmol/L (3.5-5.1) L 05/20/21 16:52 Chloride 99 mmol/L (98-107) 05/20/21 16:52 Carbon Dioxide 19 mmol/L (22-29) L 05/20/21 16:52 Anion Gap 21.2 (5-19) H 05/20/21 16:52 BUN 22 mg/dL (8-23) 05/20/21 16:52 Creatinine 0.8 mg/dL (0.5-0.9) 05/20/21 16:52 GFR Calculation Not Reportable 05/20/21 16:52 Glucose 101 mg/dL (65-115) 05/20/21 16:52 Calculated Osmolality 285 mOsm/kg (285-295) 05/20/21 16:52 Lactate 5.8 mmol/L (0.5-2.2) H* 05/20/21 18:13 Calcium 8.1 mg/dL (8.5-10.5) L 05/20/21 16:52 Total Bilirubin 0.2 mg/dL (0.15-1.2) 05/20/21 16:52 AST 13 U/L (0-32) 05/20/21 16:52 ALT 6 U/L (0-33) 05/20/21 16:52 Alkaline Phosphatase 123 IU/L (35-105) H 05/20/21 16:52 Troponin T Baseline 22 ng/L (0-10) H 05/20/21 16:52 Troponin T Hi Sens 6Hr 42.74 ng/L (0-10) H 05/21/21 00:45 Troponin T Hi Sens 6Hr Delta 20.74 ng/L (0-12) H* 05/21/21 00:45 Total Protein 5.9 g/dL (6.6-8.7) L 05/20/21 16:52 Albumin 2.4 g/dL (3.5-5.2) L 05/20/21 16:52 Globulin 3.5 g/dL (1.3-4.6) 05/20/21 16:52 Lipase 15 U/L (13-60) 05/20/21 16:52 Blood Type A Positive 05/20/21 18:28 Rho(D) Type Positive 05/20/21 18:28 Antibody Screen Negative 05/20/21 18:28 Crossmatch See Detail 05/20/21 18:28 Micro: Microbiology 05/20/21 18:11 Blood Culture - Preliminary Blood SPECIMEN COLLECTED 05/20/21 18:13 Blood Culture - Preliminary Blood SPECIMEN COLLECTED A&P Assessment and plan (1) Anemia: Symptomatic Anemia likely 2/2 blood loss from rectosigmoid colonic mass with possible fistulization Chief differential at this time is malignancy given chronicity of symptoms over years, likely slow GI bleeding given otherwise stable hemodynamics Transfuse 4 units of PRBC Recheck HB in am and then again in 12 hrs Baseline fe, ferritin, b12 and folate levels Status: Acute (2) Diarrhea: as above Chronic, ongoing over the past year, less likely infectious etiology Received zosyn and vancomycin in ER closely monitor off further abx for now Status: Acute (3) Pulmonary embolism: May be related to possible malignancy check LE duplex , if additionally has DVT, will assessment for IVC filter Unable to be anticoagulated due to low HB 4.2 and GI bleeding with + FOBT Status: Acute (4) Colonic mass: as above Gen/surg consulted for evaluation for colonoscopy Status: Acute (5) Rectal fistula: Status: Acute (6) Syncope: May be related to symptomatic anemia, hb 4.2 vs orthostatic drop in HB Upon admission noted to have mild tacycardia and systolic BP 90s. 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
--- NOTE | 2021-05-21 01:26 | PC.NURSE ---
Patient arrived to the floor from the ED at 0046.
[2021-05-21] MEDS: pantoprazole 40 mg SDV IVP ×2 (01:54→13:55)
--- NOTE | 2021-05-21 02:18 | USCV_ITS ---
Transthoracic Echo Teresa Jha Age: 71 Gender: F : 1950 Exam Date: 05/21/2021 02:22 Ordering Phys: Vira Garnett MD Technologist: Pop Saha [place]am Location[place] [facility] [place]ication: PE/RT Heart Strain BP: 112 / 60 HR: 96 Rhythm: Sinus Technical Quality: Adequate MEASUREMENTS (Male / Female) Normal Values 2D ECHO LV Diastolic Diameter PLAX 3.8 cm 4.2 - 5.9 / 3.9 - 5.3 cm LV Systolic Diameter PLAX 2.5 cm IVS Diastolic Thickness 0.6 cm 0.6 - 1.0 / 0.6 - 0.9 cm IVS Systolic Thickness 1.1 cm LVPW Diastolic Thickness 1.3 cm 0.6 - 1.0 / 0.6 - 0.9 cm LVPW Systolic Thickness 1.7 cm LVOT Diameter 1.7 cm LV Ejection Fraction 2D Teich 62.2 % LV Ejection Fraction MOD 2C 46.1 % LV Ejection Fraction 2C AL 45.4 % LA Diameter 3.2 cm LA Width 3.6 cm LA Height 4.5 cm RA Width 3.6 cm RA Height 3.6 cm Aorta at Sinotubular Diameter 1.1 cm M-MODE Aortic Annulus Diameter 1.4 cm LA Ao Ratio MM 2.7 MV E Point Septal Separation 1.0 cm DOPPLER AV Peak Velocity 135.3 cm/s LVOT Peak Velocity 98.0 cm/s AV Area Cont Eq vti 1.7 cm squared AV Area Cont Eq pk 1.7 cm squared MV Peak Velocity 89.0 cm/s MV Area PHT 4.1 cm squared Mitral E to A Ratio 1.0 MV E' Velocity 48.0 cm/s Mitral E to MV E' Ratio 6.6 Mitral E to LV E' Lateral Ratio 5.7 Mitral E to LV E' Septal Ratio 7.9 TR Peak Velocity 223.3 cm/s TR Peak Gradient 19.9 mmHg TR Mean Velocity 243.4 cm/s TR Mean Gradient 27.1 mmHg TR Velocity Time Integral 115.6 cm Right Atrial Pressure 3.0 mmHg Pulmonary Artery Systolic Pressu 22.9 mmHg PV Peak Velocity 83.3 cm/s RV Acceleration Time 0.2 s RV Ejection Time 0.3 s RV AcT/ET 0.6 FINDINGS Left Ventricle Normal left ventricular size. LV systolic function is mildly reduced with EF of 45 to 50%. Mild global hypokinesis is seen. Right Ventricle The right ventricle is normal in size and function. Right Atrium The right atrium is normal in size. Left Atrium The left atrium is normal in size. Mitral Valve Structurally normal mitral valve without significant stenosis or prolapse. There is mild mitral regurgitation. Aortic Valve Aortic valve is thickened without significant stenosis. There is no aortic regurgitation. Tricuspid Valve Structurally normal tricuspid valve without significant stenosis. Mild to moderate tricuspid regurgitation. Mild pulmonary hypertension with RVSP of 40 to 45 mmHg. Pulmonic Valve Structurally normal pulmonic valve without significant stenosis. There is mild pulmonic regurgitation. Pericardium Normal pericardium without effusion. Aorta Normal ascending aorta dimension. CONCLUSIONS LV systolic function is mildly reduced with EF of 45 to 50%. Mild global hypokinesis is seen. Mild mitral regurgitation. Mild to moderate tricuspid regurgitation. Mild pulmonary hypertension with RVSP of 40-45mmHg Mild pulmonic regurgitation No comparison studies are available Kelton Goins MD (Electronically Signed) Final Date: 21 May 2021 12:08 S
--- NOTE | 2021-05-21 02:58 | PC.NURSE ---
pt refused Covid-19 test to be performed. education done with patient. pt continues to refuse. will keep pt in airborne/droplet isolation.
[2021-05-21] MEDS: sodium chloride 0.9% (100 ml) 100 ML 150 ML (03:53)
[2021-05-21 06:12] LABS: Ferritin 18 ng/mL (15-150); Iron 12 ug/dL (37-145)
[2021-05-21 06:29] LABS: Folate Level 7.9 ng/mL (4.8-37.3); Vitamin B12 367 pg/mL (232-1245)
--- NOTE | 2021-05-21 06:30 | PC.NURSE ---
pt rested intermittently throughout the night after transfer from the ED. 3u PRBC infused and one currently infusing. VSS. Pt NPO. No complaints of pain. Multiple incontinent BMs and voids. Pt turned self frequently. Hourly rounding done. All needs met. at bedside.
[2021-05-21 07:22] LABS: Basophils # 0.1 10^3/uL (0.0-0.1); Basophils % 0.4 %; Eosinophils # 0.3 10^3/uL (0.0-0.8); Eosinophils % 0.8 %; Hematocrit 31.2 % (37.0-47.0); Lymphocytes % 3.5 %; Mean Corpuscular HGB Conc 30.4 g/dL (30.0-36.0); Mean Corpuscular Hemoglobin 22.5 pg (28.0-34.0); Mean Corpuscular Volume 73.9 fl (81-99); Mean Platelet Volume 10.1 fL (7.4-10.4); Monocytes # 0.6 10^3/uL (0.2-0.9); Monocytes % 2.2 %; Neutrophils # 27.16 10^3/uL (1.8-7.7); Nucleated Red Blood Cells % 0.1 %; Platelet Count 228 10^3/cmm (130-400); Red Blood Count 4.22 10^6/uL (4.1-5.3); Red Cell Distribution Width 24.6 % (12.1-15.1); White Blood Count 29.5 10^3/uL (4.0-10.0)
--- NOTE | 2021-05-21 07:37 | PM.CONSULT ---
Providers/Reason For Consult Consulting Physician/Specialty*: Kelton Goins MD/Interventional Cardiology Reason for Consult*: IVC filter placement Requesting Physician: Dr Garnett Attending Physician: Isauro Andrea MD History of Present Illness History of Present Illness Teresa Jha is a 71 year old female who has presented with bloody diarrhea, generalized malaise and a syncopal episode yesterday. She had a hemoglobin of 4.2 was found to have pulmonary emboli and left sided DVT in the femoral and popliteal veins. She is receiving blood transfusions at this time. Concern for rectal mass. Does not have dyspnea or chest pain. Review of Systems General: Reports: 10 or more systems reviewed and unremarkable except in HPI and below Const: Denies: fever(s), chills or body aches Eyes: Denies: change in vision, blurry vision or photophobia ENMT: Reports: hoarseness; Denies: throat pain, enlarged tonsils, odynophagia or nasal congestion Card: Denies: chest pain, palpitations, irregular heart rhythm, edema, swelling of feet/ankles, lightheadedness, pre-syncope, dyspnea on exertion or orthopnea Resp: Denies: dyspnea, productive cough, non-productive cough, wheezing, stridor, pain on inspiration, change in phlegm color, hemoptysis or chest congestion GI: Denies: abdominal pain, nausea, vomiting, hematemesis, coffee ground emesis, dysphagia, heartburn, diarrhea, constipation, GI cramping, change in stool character, hematochezia or melena : Denies: flank pain, difficulty voiding, dysuria, urinary frequency, urinary urgency, urinary hesitancy or hematuria Musc: Denies: neck pain, back pain, extremity pain, joint swelling, joint warmth or deformity Neuro: Denies: headache(s), numbness in extremities, weakness in extremities, sensory changes, difficulty walking, frequent falls, dizziness, vertigo, behavioral changes, Slurred speech present or seizure-like activity Psych: Denies: anxiety, depression, suicidal ideation or homicidal ideation Endo: Denies: polyuria, polydipsia, tired all the time, cold intolerance or hot flashes Kevyn/Lymph: Denies: easy bruising or easy bleeding Medications/Allergies Home Medications Medication Instructions Recorded Confirmed Last Taken Type cetirizine 10 mg tablet (Zyrtec) 10 mg PO DAILY 05/20/21 05/20/21 05/19/21 History Allergies Allergy/AdvReac Type Severity Reaction Status Date / Time No Known Allergies Allergy Verified 05/20/21 20:11 Current Medications Generic Name Dose Route Start Last Admin Trade Name Ivet PRN Reason Stop Dose Admin Pantoprazole Sodium 40 mg 05/21/21 00:14 05/21/21 01:54 Pantoprazole 40 Mg Sdv IVP 40 mg Q12H UBALDO Administration PFSH Acute PFSH: Medical History Diarrhea Social History Smoking and tobacco status: never smoked Alcohol intake: never Substance/Drug Use: never Vitals/I&O/Wt Last Vital Signs Temp 97.1 F L 05/21/21 05:58 Pulse 89 05/21/21 06:00 Resp 18 05/21/21 05:58 BP 107/63 05/21/21 05:58 Pulse Ox 94 05/21/21 05:58 05/20/21 05/21/21 05/21/21 22:59 06:59 14:59 Intake Total 350 / 350 3100 / 3450 Balance 350 / 350 3100 / 3450 Weight last 48 hrs Weight 107 lb 6.4 oz Weight 120 lb Physical Exam Narrative: GENERAL: Patient is alert, awake and oriented x3. [] NECK: No jugular vein distension. [] HEENT: No cyanosis. No icterus. No pallor. [] HEART: Regular S1 and S2. No murmur, rub or gallop. [] LUNGS: Clear to auscultate bilaterally. [] ABDOMEN: Soft, nontender and nondistended. CENTRAL NERVOUS SYSTEM: Grossly nonfocal. [] EXTREMITIES: Lower extremities with 1+ edema bilaterally. Pulses palpable in the lower extremities, both dorsalis pedis and posterior tibial. [] Data : 05/21/21 06:50 05/21/21 06:50 Micro: Microbiology 05/21/21 02:10 Occult Blood (FIT) - Final Stool 05/20/21 18:11 Blood Culture - Preliminary Blood SPECIMEN COLLECTED 05/20/21 18:13 Blood Culture - Preliminary Blood SPECIMEN COLLECTED A&P Assessment and plan (1) Syncope: Status: Acute (2) Pulmonary embolism: Status: Acute (3) DVT (deep venous thrombosis): Status: Acute (4) Anemia: Status: Acute (5) Diarrhea: Status: Acute Plan Patient has presented with severe anemia and bloody diarrhea requiring blood transfusions. Presenting hemoglobin was 4.2. She was found to have pulmonary emboli and has a DVT on the left side. Contraindication to anticoagulation at this time. We have been consulted for IVC filter placement. She will benefit from IVC filter placement. Medicine team has also recommended it. We will proceed with IVC filter placement today. I discussed the risks and benefits of the procedure with the patient. She understands the risks and benefits and wants to proceed with the procedure. Keep her n.p.o. Thank you for involving us with care of this patient. We will continue to follow. Please call with questions. Coding Level of Care Code Acute Instrumental Teacher for Berenice Langed Diagnoses Syncope R55 Pulmonary embolism I26.99 DVT (deep venous thrombosis) I82.409 Anemia D64.9 Diarrhea R19.7
[2021-05-21 07:42] LABS: Lactic Sepsis W/Reflex 1.4 mmol/L (0.5-2.2)
[2021-05-21 07:48] LABS: Alanine Aminotransferase 6 U/L (0-33); Alkaline Phosphatase 86 IU/L (35-105); Anion Gap 14.6 (5-19); Aspartate Amino Transferase 17 U/L (0-32); Blood Urea Nitrogen 18 mg/dL (8-23); Calcium 7.3 mg/dL (8.5-10.5); Carbon Dioxide 22 mmol/L (22-29); Chloride 104 mmol/L (98-107); Globulin 3.3 g/dL (1.3-4.6); Glucose 91 mg/dL (65-115); Osmolality Calculated 285 mOsm/kg (285-295); Potassium 3.6 mmol/L (3.5-5.1); Sodium 137 mmol/L (136-145); Total Bilirubin 1.1 mg/dL (0.15-1.2); Total Protein 5.3 g/dL (6.6-8.7)
[2021-05-21 07:55] LABS: Hemoglobin 9.5 g/dL (11.5-15.3); Slide Review Slide Review Perform
--- NOTE | 2021-05-21 08:16 | XACV_ITS ---
Ht: 155 cm Wt: 49 kg BSA: 1.45 m2 Any Known Allergies: No known allergies Gender: Female : 1950 Exam Type: Invasive Peripheral Vascular Procedure(s): Procedure Description: Peripheral vascular Intervention Procedure Description: PV IVC Filter Placement Exam Priority: Routine Abdominal Interventional Findings INDICATION: 71 year old female who has presented with bloody diarrhea, generalized malaise and a syncopal episode . She had a hemoglobin of 4.2 was found to have pulmonary emboli and left sided DVT in the femoral and popliteal veins. Concern for rectal cancer. . PROCEDURE DETAIL: We obtained access in the right common femoral vein. Pigtail catheter was used to obtain IVC venogram. Renal veins were identified and IVC filter was deployed below the veins. Filter deployment it was removed and pressure was held to obtain hemostasis. Patient left the Manufacturing Business Analyst in a stable condition.. Conclusions Successful deployment of retrievable IVC filter. Recommendations Outpatient cardiology follow to assess timing of IVC filter removal if indicated. Access Site Site: Right Femoral vein Sheath Size: 6 Fr Hemost... Success: Unsuccessful Procedure Details Findings Procedure Consent Obtained. Pre-Procedure Time Out. Identified patient by full name and date of as verbalized by the patient/guarantor. Does the consent match the physician's order: Yes. Accurate & Complete Informed Consent: Yes. Inpatient/Outpatient History & Physical on Chart: Yes. If H&P is completed, is and addenduem needed: No; If yes, is the addendum complete: N/A. Visualize and Verify Site with Patient/Guarantor: N/A. Relevant Radiology Images available: Yes. Pre-op teaching completed and patient verbalized understanding. The risks, benefits, and alternatives of sedation and/or procedure were discussed by physician. The patient agrees to continue. Procedure started. PERRLA. Strong, equal hand quality assurance coordinator bilaterally. Lungs clear x 5 lobes. IV Fluids: 0.9% NaCl at KVO. 0 mL infused prior to mini lab operator. Oxygen started at 2liters/min via nasal canula. bilateral groins was prepped with chloroprep then draped in the usual sterile fashion. Physician arrived. IV Site on Arrival: 18 gauge in the left anticubital. The IV the patient arrived with is not patent, IV removed. A 20 gauge IV was started in the right anticubital using aseptic technique. Vital chart was stopped. Baseline sample Acquired. HR: 81 BPM. Physician scrubbed in. Immediate Pre-Procedure Time Out. Correct Patient: Yes; Correct Procedure: Yes; Correct Site: Yes; Correct Patient Position: Yes; Correct Supplies: Yes; Dried Flammable Prep: Yes; Blood Products Available: N/A;. Lidocaine 1% infiltrated to the right groin. Venous access obtained with a micropuncture set. A 5 bengali Angled Pig catheter in over wire. Abdominal aortogram performed in AP @ 10 mL/sec for a total of 30 mL. Catheter removed over the standard wire. Sheath removed OTW. 10Fr dilator inserted OTW. Dilator removed OTW. Sheath upsized to a 7 Fr. Obeo IVC filter sheath. IVC filter inserted through the sheath and advanced. IVC filter successfully deployed. Lot# [id number]. Deployment system and sheath removed. Sheath(s) removed and manual pressure held until hemostasis was achieved. Sterile 4x4 and Op-site applied to the puncture site. No oozing or hematoma noted. Post sheath removal instructions were given and the patient verbalized understanding. Post Procedure: Pulses reassessed and unchanged. PERRLA. Strong, equal hand quality assurance coordinator bilaterally. No VTE prophylaxis required. Medication's Wasted: Heparin = 1000 units. Medication's Wasted: Other = Fentanyl 25 mg. Total IV fluids: 63.7 mL. Contrast type used: Visipaque 320 mgI/mL, 200 mL bottle. Complications: None. Estimated blood loss: 5mL-10mL. Responsiveness - Normal response to verbal stimuli; alert and oriented, PERRLA. Airway - Unaffected, no intervention required; spontaneous ventilation. Circulation: W/N/L, pulses unchanged. Nausea/Vomiting: No. Procedure completed. Patient transferred by bed to 1st floor. Vital chart was stopped. Procedure Medications Start: 8:38 AM Stop: 8:38 AM Medication: Versed 1 mg and Fentanyl 25 mcg Amount: 1 Route: I.V. Start: 8:56 AM Stop: 8:56 AM Medication: Versed 1 mg and Fentanyl 25 mcg Amount: 1 Route: I.V. I, the attending physician, have reviewed and verified all procedure medications. Yes, all medications given per verbal order History/Risk Factors Hypertension: No Dyslipidemia: No Peripheral Arterial Disease (PAD): No Obesity: No Renal Disease: No Tobacco Use: Never Prior Interventions PCI: No CABG: No Valve Surgery: No Report Signatures Finalized by Kelton Goins MD on 06/04/2021 05:35 PM
[2021-05-21 08:40] LABS: INR 1.23 (0.8-1.2)
[2021-05-21 08:41] LABS: Partial Thromboplastin Time 36.3 SECONDS (23.9-36.7)
--- NOTE | 2021-05-21 08:43 | W.PM.OPSUD ---
Surgery/Procedure H&P Update DATE OF PROCEDURE: May 21, 2021 DATE H&P PERFORMED: 05/21/21 H&P UPDATE INFORMATION: I have reviewed H&P completed within last 30 days, I have examined patient prior to procedure and No changes to prior documentation PREOP DIAGNOSIS: Pulmonary embolism/DVT/ contraindication to anticoagulation PRIMARY INDICATION FOR PROCEDURE: Pulmonary embolism/DVT/ contraindication to anticoagulation PLANNED PROCEDURE: IVC filter placement PATIENT REASSESSED PRIOR TO SEDATION, WITH NO CHANGE NOTED: Yes PHYSICAL EXAM: alert, oriented x 3, clear to auscultation bilaterally and regular rate & rhythm AIRWAY EVAL/ANESTHESIA PLAN: normal airway, ASA IV, Monitored Anesthesia, Local Anesthesia, Risks, benefits & alternatives of sedation and/or procedure discussed and Patient agrees to continue as planned
[2021-05-21] MEDS: iron sucrose 200 MG in sodium chloride 0.9% (100 ml) 100 ML 220 MG IV (09:45)
--- NOTE | 2021-05-21 11:00 | PC.NURSE ---
pt refused to have a covid swab discuss to dr. galvez at bedside. will ask pt again per family.
--- NOTE | 2021-05-21 12:18 | P.ANESASSM_ITS ---
Pre-Anesthetic Assessment Height/Weight: Height 1.55 m Weight 48.716 kg Temp Pulse Resp BP Pulse Ox 97.2 F L 74 26 H 125/66 96 05/21/21 11:48 05/21/21 11:48 05/21/21 11:48 05/21/21 11:48 05/21/21 11:48 Preop Diagnosis: Pulmonary embolism/DVT/ contraindication to anticoagulation Operation Date: 05/21/21 08:30 Proposed Procedures p IVC Filter Insertion(Not Applicable) - Kelton Goins M.D Operation Date: 05/22/21 08:00 Proposed Procedures p Colonoscopy(Not Applicable) - Twan Ovalles MD Familial anesthetic complications: After entering room and introducing myself patient immediately stated Stick it up your ass to which I replied I don't want to. I told the patient why I was there and the patient stated go to ... At that point I continued the history with the who informed me she is normally very sweet but angry recovering from sedation for IVC filter Hx from and daughter patient has no known allergies to anesthesia Was Beta Florencio taken within 24 hours: N/A Was Clonidine taken within 24 hours: N/A Last intake: 05/20/2021 Social No alcohol and No tobacco Exam alert, oriented x 3, clear to auscultation bilaterally and regular rate & rhythm Airway Comments: Comments: Would not participate in exam Pulmonary Chronic Obstructive Pulmonary Disease (Emphysematous change noted on CT) PE shown on CTA 05/20/2021 in lobar and segmental levels of b/l lower and also on LI. On RA CT/CT angio chest abdomen pelvis IMPRESSION: 1. Positive for bilateral pulmonary embolism. 2. No convincing CT angiogram evidence of significant right heart strain. 3. Clustered tree-in-bud nodular foci in the lateral right upper lobe which could represent post infectious change, or represent acute pneumonitis features. ? IVC filter placement 05/21/2021 CV/HEM Anemia, Deep Vein Thrombosis and Myocardial Infarction (NSTEMI) LE Duplex Study US/[place] [id number] IMPRESSION: Positive for left lower extremity deep venous system thrombosis involving femoral and popliteal veins. ? EKG 05/21/2021 ? Interpretive Statements SINUS RHYTHM WITH OCCASIONAL SUPRAVENTRICULAR PREMATURE COMPLEXES MINIMAL ST DEPRESSION? 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 No acute abnormality of the brain. 2. Mild mucoperiosteal thickening in the the visualized ethmoid sinuses. 3. Incidental/nonacute findings are listed in the report. Anesthetic Plan ASA status: 4 Anesthesia: Anesthesia Evaluation and MAC Other: I discussed with the the and daughter risks, goals, and benefits of MAC and general anesthesia. We discussed spectrum of MAC anesthesia including conversion to general as well as possibility of recall of intraoperative stimuli including discomfort/pain. All questions answered. agrees to proceed with MAC. Risk of > 500 ml blood loss (7ml/kg in children): No Other Pertinent Information Patient refuses COVID 19 testing. Medications/Allergies Home Medications Medication Instructions Recorded Confirmed Last Taken Type cetirizine 10 mg tablet (Zyrtec) 10 mg PO DAILY 05/20/21 05/20/21 05/19/21 History Allergies Allergy/AdvReac Type Severity Reaction Status Date / Time No Known Allergies Allergy Verified 05/20/21 20:11 Current Medications Generic Name Dose Route Start Last Admin Trade Name Freq PRN Reason Stop Dose Admin Iron Sucrose 200 mg/ Sodium 110 mls @ 220 mls/hr 05/21/21 08:00 05/21/21 11:0 1 Chloride IV 05/25/21 08:29 Infused Q24H UBALDO Infusion Midodrine 10 mg 05/21/21 07:45 05/21/21 11:00 Midodrine 5 Mg Tablet PO Not Given Q8H UBALDO Pantoprazole Sodium 40 mg 05/21/21 00:14 05/21/21 01:54 Pantoprazole 40 Mg Sdv IVP 40 mg Q12H UBALDO Administration PFSH Anesthesia Medical History Diarrhea Social History Smoking and tobacco status: never smoked Alcohol intake: never Substance/Drug Use: never Data Anesthesia : 05/21/21 06:50 05/21/21 06:50 Short CBC 05/20/21 05/21/21 Range/Units 16:52 06:50 WBC 12.1 H 29.5 H (4.0-10.0) 10^3/uL Hgb 4.2 L* 9.5 L D (11.5-15.3) g/dL Hct 18.1 L* 31.2 L D (37.0-47.0) % MCV 63.7 L 73.9 L D (81-99) fl Plt Count 255 228 (130-400) 10^3/cmm Neut % (Auto) 96.1 92.0 % Neut # (Auto) 11.64 H 27.16 H (1.8-7.7) 10^3/uL BMP 05/20/21 05/21/21 16:52 06:50 Sodium 136 137 Potassium 3.2 L 3.6 Chloride 99 104 Carbon Dioxide 19 L 22 BUN 22 18 Creatinine 0.8 0.6 Glucose 101 91 Calcium 8.1 L 7.3 L Cardiac Enzymes 05/20/21 05/21/21 Range/Units 16:52 00:45 Troponin T Baseline 22 H (0-10) ng/L Troponin T Hi Sens 6Hr 42.74 H (0-10) ng/L Troponin T Hi Sens 6Hr Delta 20.74 H* (0-12) ng/L Liver Function 05/20/21 05/21/21 Range/Units 16:52 06:50 Total Bilirubin 0.2 1.1 (0.15-1.2) mg/dL AST 13 17 (0-32) U/L ALT 6 6 (0-33) U/L Alkaline Phosphatase 123 H 86 (35-105) IU/L Albumin 2.4 L 2.0 L (3.5-5.2) g/dL Blood Bank 05/20/21 18:28 Blood Type A Positive Rho(D) Type Positive Antibody Screen Negative Coags 05/21/21 08:00 PT 15.90 H INR 1.23 H APTT 36.3 Microbiology 05/21/21 02:10 Occult Blood (FIT) - Final Stool 05/20/21 18:11 Blood Culture - Preliminary Blood SPECIMEN COLLECTED 05/20/21 18:13 Blood Culture - Preliminary Blood SPECIMEN COLLECTED Cardiac Studies: No Data to Display
[2021-05-21 12:50] LABS: INR 1.28 (0.8-1.2)
--- NOTE | 2021-05-21 13:02 | P.CONIM_ITS ---
Providers/Reason For Consult Consulting Physician/Specialty*: General Surgery Dr. Ovalles Reason for Consult*: Rectal mass Attending Physician: Isauro Andrea MD History of Present Illness History of Present Illness Teresa Jha is a 71 year old female who presented to the ER yesterday with generalized malaise and fatigue. Patient had a CT scan which showed a rectal mass as well as PE. Patient denies any abdominal pain, nausea, vomiting, bleeding per rectum though she states that she has been having diarrhea for the last 2 years. No prior colonoscopy. She states that she has not seen a physician in over 36 years. No family history of colon cancer. Review of Systems General: Reports: 10 or more systems reviewed and unremarkable except in HPI a nd below Medications/Allergies Home Medications Medication Instructions Recorded Confirmed Last Taken Type cetirizine 10 mg tablet (Zyrtec) 10 mg PO DAILY 05/20/21 05/20/21 05/19/21 History Allergies Allergy/AdvReac Type Severity Reaction Status Date / Time No Known Allergies Allergy Verified 05/20/21 20:11 Current Medications Generic Name Dose Route Start Last Admin Trade Name Freq PRN Reason Stop Dose Admin Iron Sucrose 200 mg/ Sodium 110 mls @ 220 mls/hr 05/21/21 08:00 05/21/21 11:01 Chloride IV 05/25/21 08:29 Infused Q24H UBALDO Infusion Midodrine 10 mg 05/21/21 07:45 05/21/21 11:00 Midodrine 5 Mg Tablet PO Not Given Q8H UBALDO Pantoprazole Sodium 40 mg 05/21/21 00:14 05/21/21 01:54 Pantoprazole 40 Mg Sdv IVP 40 mg Q12H UBALDO Administration PFSH Acute 2 PFSH: Medical History Diarrhea Social History Smoking and tobacco status: never smoked Alcohol intake: never Substance/Drug Use: never Vitals/I&O/Wt Last Vital Signs Temp 97.2 F L 05/21/21 11:48 Pulse 74 05/21/21 11:48 Resp 26 H 05/21/21 11:48 BP 125/66 05/21/21 11:48 Pulse Ox 96 05/21/21 11:48 0305/21/21 05/21/21 22:59 06:59 14:59 Intake Total 350 / 3450 3100 / 3450 460 / 460 Balance 350 / 3450 3100 / 3450 460 / 460 Weight last 48 hrs Weight 107 lb 6.4 oz Weight 120 lb Physical Exam Narrative: HEENT: Normocephalic Eye: Sclera /conjunctiva normal Abdomen: Soft to palpation Neurological: Oriented to place person and time Skin: Intact, no lesions appreciated on gross exam Data : 05/21/21 17:40 05/21/21 06:50 Micro: Microbiology 05/21/21 02:10 Occult Blood (FIT) - Final Stool 05/20/21 18:11 Blood Culture - Preliminary Blood SPECIMEN COLLECTED 05/20/21 18:13 Blood Culture - Preliminary Blood SPECIMEN COLLECTED A&P Assessment and plan (1) Rectal mass: 71-year-old female who presented to the ER with generalized weakness and was noted to have a hemoglobin of 4. No evidence of active GI bleed. Patient was also noted to have a PE and therefore is due to have IVC filter placed today. She is also receiving blood transfusions. Discussed with the patient about the CT scan findings concerning for rectal mass. We will schedule her for colonoscopy under MAC tomorrow Bowel prep today Procedure, risks, benefits and alternatives have been discussed with the patient who wishes to proceed with surgery. Patient refused COVID-19 testing Status: Acute Consult Attestations Medical Necessity Statement: As per attending physician Coding Level of Care Code Acute Field Sales Executive for Berenice Penaloza Diagnoses Rectal mass K62.89
[2021-05-21 13:04] LABS: Carcinoembryonic Antigen 2.2 ng/mL (0.0-4.7)
--- NOTE | 2021-05-21 13:08 | PM.PN ---
Subjective Subjective: Patient was seen this morning, has been at bedside -She tells me that she has been feeling tired recently, more short of breath, her at bedside tells that she is very stubborn, she refused to see had For the last 2 years, denies bloody or black stools, -I advised patient that she has a lower extremity DVT, with bilateral pulmonary emboli, as she cannot be anticoagulated given her anemia, rectal mass, FOB T+ stools, she has a high risk of propagation of her blood clot, I highly recommend for IVC filter placement, discussed risks and benefits, she voiced understanding, all questions answered, agreed to proceed. Patient was reexamined after IVC filter placement, she is resting comfortably -I advised her that she was found to have a rectosigmoid colonic mass concerning for malignancy, I will have general surgery see her, possible colonoscopy for biopsy, -She is also has severe anemia iron deficiency anemia has received 4 units PRBC, is receiving iron replacement Vitals/I&O/Wt Last Vital Signs Temp 97.2 F L 05/21/21 11:48 Pulse 74 05/21/21 11:48 Resp 26 H 05/21/21 11:48 BP 125/66 05/21/21 11:48 Pulse Ox 96 05/21/21 11:48 05/20/21 05/21/21 05/21/21 22:59 06:59 14:59 Intake Total 350 / 350 3100 / 3450 460 / 460 Balance 350 / 350 3100 / 3450 460 / 460 Weight last 48 hrs Weight 48.716 kg Weight 54.431 kg Physical Exam Const: COMMON NORMALS: no acute distress and patient oriented x3 GENERAL APPEARANCE: frail appearing Resp: COMMON NORMALS: normal respiratory effort, No retractions, No use of accessory muscles and clear to auscultation bilaterally AUSCULTATION: clear to auscultation bilaterally Cardio: COMMON NORMALS: regular rate, regular rhythm, S1 normal heart sound present and S2 normal heart sound present RATE: regular rate RHYTHM: regular rhythm HEART SOUNDS: S1 normal heart sound present and S2 normal heart sound present GI: COMMON NORMALS: Normal to inspection, nondistended, normoactive bowel sounds present, Soft to palpation, non-tender and No hepatosplenomegaly present PALPATION: Yes Soft to palpation and Yes No hepatosplenomegaly present Extremity: COMMON NORMALS: no pedal edema Neuro: COMMON NORMALS: patient oriented x3 Psych: COMMON NORMALS: mental status grossly normal Data : 05/21/21 06:50 05/21/21 06:50 Micro: Microbiology 05/21/21 02:10 Occult Blood (FIT) - Final Stool 05/20/21 18:11 Blood Culture - Preliminary Blood SPECIMEN COLLECTED 05/20/21 18:13 Blood Culture - Preliminary Blood SPECIMEN COLLECTED A&P Assessment and plan (1) Anemia: Symptomatic Anemia likely 2/2 blood loss from rectosigmoid colonic mass with possible fistulization Chief differential at this time is malignancy given chronicity of symptoms over years, likely slow GI bleeding given otherwise stable hemodynamics Status post 4 units PRBC, 1 unit FFP, hemoglobin 9.5 Monitor hemoglobin Evidence of iron deficiency anemia, replace with IV Venofer here Status: Acute (2) Diarrhea: as above Chronic, ongoing over the past year, less likely infectious etiology Received zosyn and vancomycin in ER closely monitor off further abx for now Status: Acute (3) Pulmonary embolism: May be related to possible malignancy Also a left lower extremity DVT Unable to be anticoagulated due to low HB 4.2 and GI bleeding with + FOBT Dr. Leary consulted, status post IVC filter placement Status: Acute (4) Colonic mass: as above Gen/surg consulted for evaluation for colonoscopy Status: Acute (5) Rectal fistula: Status: Acute (6) Syncope: May be related to symptomatic anemia, hb 4.2 vs orthostatic drop in HB Upon admission noted to have mild tacycardia and systolic BP 90s. Monitor blood pressures, Status: Acute (7) DVT (deep venous thrombosis): Venous ultrasound positive for left lower extremity deep venous system thrombosis involving femoral and popliteal veins. Cannot be anticoagulated, as above, status post IVC filter placement Status: Acute (8) NSTEMI (non-ST elevated myocardial infarction): Likely secondary pulmonary emboli, anemia, colonic mass No chest pain complaints Serial EKGs, troponins, monitor for chest pain Anticoagulation absolutely contraindicated due to anemia Status: Acute (9) Aspiration pneumonia: CT of the chest shows tree-in-bud nodular foci in the lateral right upper lobe, concerning for possible aspiration, start Zosyn Status: Acute Plan check COVID PCR for pre surgical screen Attestations Medical Necessity Statement*: Patient requires hospitalization for bilateral pulmonary emboli, DVT, acute anemia, colonic mass Coding Level of Care Code Acute Real Estate Salesperson for Chg Fwd Diagnoses Anemia D64.9 Diarrhea R19.7 Pulmonary embolism I26.99 Colonic mass K63.89 Rectal fistula K60.4 Syncope R55 DVT (deep venous thrombosis) I82.409 NSTEMI (non-ST elevated myocardial infarction) I21.4 Aspiration pneumonia J69.0
[2021-05-21] MEDS: piperacillin-tazobactam 3.375 GM in sodium chloride 0.9% (plus) 50 ML IV ×2 (13:56→21:18)
[2021-05-21] MEDS: magnesium citrate Btl 296 mL PO ×2 (13:56→19:44)
[2021-05-21] MEDS: bisacodyl 5 mg Tablet 40 MG PO (13:57)
--- NOTE | 2021-05-21 14:46 | PC.OT ---
Hold OT evaluation per nursing order
[2021-05-21] MEDS: midodrine 5 mg TABLET 10 MG PO (16:49)
[2021-05-21 17:47] LABS: Hematocrit 40.1 % (37.0-47.0); Hemoglobin 12.6 g/dL (11.5-15.3)
--- NOTE | 2021-05-21 18:02 | PC.NURSE ---
plasma transfused at 1830 not saved in the [facility] due to battery life went low. but plasma has been transfused at 1830 pm. verified w/2 nurses CHANO Arroyo.
[2021-05-21] MEDS: acetaminophen 325 mg Tablet 650 MG PO (18:25)
--- NOTE | 2021-05-21 19:56 | PC.NURSE ---
Received report from CHANO Hansen. Patient resting in bed. Instructed patient on bowel prep for planned colonoscopy in the am. Patient verbalized understanding. 2nd bottle of mag citrate started at this time. Patient has had several watery loose stools not yet clear at this time. Patient c/o hemorrhoids. Preparation H ordered. Patient is incontinent of stool and urine. Patient has area of excoriation from sacrum to rectum. Aloe-[place] ointment applied each episode of incontinence.
--- NOTE | 2021-05-21 20:27 | PC.NURSE ---
Shift Note Frequent safety and comfort rounds continue. Orders and/or nursing care completed as indicated such as ivc filter implant for NH prevention, colonoscopy. Patient monitored for response to intervention and treatment(s). Pt verbalizes understanding and agreed to get the ivc filter done. Education provided includes bowel prep meds, FFP transfusion. Patient and/or senior sales representative teach back and verbalizes understanding. Will continue to monitor.
[2021-05-21] MEDS: phenyleph-mineral oil-petrolat Oint 28 gm 1 APPLIC TOPICAL (21:18)
[2021-05-22] VITALS (17 sets, daily range): BP systolic 107–159; BP diastolic 62–95; PULSE 57–98; RESP 11–28; TEMP 36.1–36.8; O2SAT 92–99
[2021-05-22] MEDS: pantoprazole 40 mg SDV IVP ×2 (00:08→14:13)
--- NOTE | 2021-05-22 00:18 | PC.NURSE ---
Patient refusing to have COVID PCR done. Dr Ovalles is aware. Patient is having frequent watery bowel movements that are becoming mostly clear.
--- NOTE | 2021-05-22 00:21 | PC.NURSE ---
Noted patient to have SBP of 130s to 150s since shift change tonight. Informed Dr Scanlon and received order to change midodrine from scheduled to PRN for SBP <90. RBVO
--- NOTE | 2021-05-22 01:30 | PC.NURSE ---
Patient continues to have frequent stool that have become clear.
--- NOTE | 2021-05-22 03:43 | PC.NURSE ---
Patient continues with watery stools every 20-30min. Patient sacrum noticeably more excoriated and raw. Patient c/o pain to touch to her sacrum. Enema not given this morning. Stool is frequent and clear presently.
[2021-05-22] MEDS: piperacillin-tazobactam 3.375 GM in sodium chloride 0.9% (plus) 50 ML IV ×3 (04:37→20:00)
--- NOTE | 2021-05-22 04:40 | PC.NURSE ---
Patient refusing to have labs drawn this morning. Patient is exhausted and has not slept all night due to frequent episodes of incontinence of stool. Currently, stools are clear and water. Patient c/o pain to rectum and sacrum. Applied aloe-vesta for comfort.
--- NOTE | 2021-05-22 07:10 | PC.NURSE ---
Bedside report done with CHANO Arriola. Patient has left floor for procedure
[2021-05-22] MEDS: sodium chloride 0.9% 1,000 ML 30 ML IV (07:23)
--- NOTE | 2021-05-22 07:45 | PM.PN ---
Subjective Subjective: no issues overnight Vitals/I&O/Wt Last Vital Signs Temp 98.3 F 05/22/21 07:18 Pulse 68 05/22/21 07:18 Resp 16 05/22/21 07:18 BP 137/95 05/22/21 07:18 Pulse Ox 95 05/22/21 07:18 05/21/21 05/22/21 05/22/21 22:59 06:59 14:59 Intake Total 324 / 834 50 / 834 31.875 / 31.875 Output Total / Balance 324 / 831 47 / 831 31.875 / 31.875 Weight last 48 hrs Weight 107 lb 6.4 oz Weight 120 lb Physical Exam Narrative: Abdomen: soft Data : 05/21/21 17:40 05/21/21 06:50 Micro: Microbiology 05/20/21 18:13 Blood Culture - Preliminary Blood NEGATIVE TO DATE 05/20/21 18:11 Blood Culture - Preliminary Blood 05/21/21 02:10 Occult Blood (FIT) - Final Stool A&P Assessment and plan (1) Rectal fistula: Plan for colonoscopy under MAC today Status: Acute Attestations Medical Necessity Statement*: as per primary Coding Level of Care Code Acute Distilling Department Supervisor for [facility] Fwd Diagnoses Rectal fistula K60.4
--- NOTE | 2021-05-22 08:32 | PC.NURSE ---
Patient arrived back to floor from procedure. Patient is resting in bed. Family at bedside.
--- NOTE | 2021-05-22 09:03 | PM.PN ---
Subjective Subjective: Patient underwent successful placement of IVC filter yesterday. Had colonoscopy this AM. Hgb has trended up Vitals/I&O/Wt Last Vital Signs Temp 97.0 F L 05/22/21 08:13 Pulse 73 05/22/21 08:17 Resp 20 H 05/22/21 08:17 BP 107/68 05/22/21 08:17 Pulse Ox 96 05/22/21 08:17 05/21/21 05/22/21 05/22/21 22:59 06:59 14:59 Intake Total 324 / 784 50 / 834 76.375 / 76.375 Output Total 3 / Balance 324 / 784 47 / 831 76.375 / 76.375 Weight last 48 hrs Weight 107 lb 6.4 oz Weight 120 lb Physical Exam Narrative: GENERAL: Patient is alert NECK: No jugular vein distension. [] HEENT: No cyanosis. No icterus. No pallor. [] HEART: Regular S1 and S2. No murmur, rub or gallop. [] LUNGS: Clear to auscultate bilaterally. [] ABDOMEN: Soft, nontender and nondistended. CENTRAL NERVOUS SYSTEM: Grossly nonfocal. [] EXTREMITIES: Right groin has no hematoma Data : 05/21/21 17:40 05/21/21 06:50 Micro: Microbiology 05/20/21 18:13 Blood Culture - Preliminary Blood NEGATIVE TO DATE 05/20/21 18:11 Blood Culture - Preliminary Blood A&P Assessment and plan (1) Syncope: Status: Acute (2) Pulmonary embolism: Status: Acute (3) DVT (deep venous thrombosis): Status: Acute (4) Anemia: Status: Acute (5) Diarrhea: Status: Acute Plan Patient presented with severe anemia and bloody diarrhea requiring blood transfusions. Presenting hemoglobin was 4.2. She was found to have pulmonary emboli and has a DVT on the left side. Contraindication to anticoagulation at this time. We were consulted for IVC filter placement. Patient underwent successful placement of IVC filter yesterday. Femoral access site is normal Elevated troponins secondary to demand ischemia Thank you for involving us with care of this patient. Please call with questions. Attestations Medical Necessity Statement*: Care expected to cross 2 midnights. Coding Level of Care Code Acute Fuel Verification Technician for [facility] Diagnoses Syncope R55 Pulmonary embolism I26.99 DVT (deep venous thrombosis) I82.409 Anemia D64.9 Diarrhea R19.7
[2021-05-22 10:56] LABS: Hematocrit 39.2 % (37.0-47.0); Hemoglobin 12.1 g/dL (11.5-15.3); Mean Corpuscular HGB Conc 30.9 g/dL (30.0-36.0); Mean Corpuscular Volume 74.5 fl (81-99); Platelet Count 196 10^3/cmm (130-400); Red Blood Count 5.26 10^6/uL (4.1-5.3); Red Cell Distribution Width 25.1 % (12.1-15.1); White Blood Count 22.3 10^3/uL (4.0-10.0)
[2021-05-22 11:13] LABS: Slide Review Slide Review Perform
[2021-05-22 11:15] LABS: Absolute Neutrophil 19.6 10^3/cmm (1.4-6.5); Absolute Segmented Neutrophil 15.2 10/cmm (1.6-7.1); Anisocytosis 2+; Band Neutrophils Absolute 4.5 10^3/cmm (0.0-1.2); Hypochromasia 2+; Lymphocytes 7 %; Monocytes Absolute 1.1 10^3/cmm (0.1-0.6); Platelet Estimate Normal (Normal); Poikilocytosis 2+; Polychromasia 1+; Segmented Neutrophils 68 %; Total Cells Counted 100 (0-100)
[2021-05-22 11:16] LABS: Eosinophils 0 %; Lymphocytes Absolute 1.6 10^3/cmm (1.2-3.4)
--- NOTE | 2021-05-22 11:45 | PC.NURSE ---
Patient after two attempts to obtain labs early am refused another attempt by new staff, Lab was able to obtain specimens later in the am however specimens was hemalized patient refused to be draw again Dr shin notified ok to cancel all labs we was unable to obtain
--- NOTE | 2021-05-22 14:30 | PM.PN ---
Subjective Subjective: Patient was seen this morning, after her colonoscopy, she was advised of the findings of her colonoscopy for possible rectal mass which appears a lot like rectal carcinoma according to colonoscopy findings, patient did refuse blood draws overnight, refusing to follow nursing instructions -Patient's family is at bedside, both her daughters, her are at bedside -I had a detailed discussion with patient's family including her severe anemia, deconditioning -I discussion about her left lower extremity DVT bilateral pulmonary emboli -Discussed contraindication to anticoagulation and the requirement of IVC filter placement -Discussed colonoscopy findings likely rectal cancer -She will need an outpatient follow-up with colorectal surgeon and hematology -Patient starts swearing at me, tells me that she will not follow-up -She also swears at me, tells me that she does not want any more blood draws -She tells me that she wants to go home -Patient's family is at bedside, is able to calm her down, her tells me he is trying his best to bring her home today, but he thinks tomorrow would be better -As he has to get their home ready for her to come home -I would strongly advise for skilled nursing placement and possible room home rehab but patient refuses -Discussed all options to family, they voiced understanding, all questions answered, for now the plan is to likely discharge her tomorrow -I discussed my concerns for high risk of falls, high risk of deconditioning, high risk of malnutrition, high risk of morbidity and mortality -They voiced understanding, all questions answered, however patient refuses all interventions for now, she is agreeable to spend another night, she may be tells me that she will have another blood draw, she is a bit more calmer, family apologizes to me about all her swearing towards me this morning Vitals/I&O/Wt Last Vital Signs Temp 97.0 F L 05/22/21 08:13 Pulse 61 05/22/21 13:59 Resp 16 05/22/21 13:59 BP 138/72 05/22/21 13:59 Pulse Ox 96 05/22/21 13:59 05/21/21 05/22/21 05/22/21 22:59 06:59 14:59 Intake Total 324 / 784 50 / 834 212.500 / 212.500 Output Total Balance 324 / 784 47 / 831 212.500 / 212.500 Weight last 48 hrs Weight 48.716 kg Weight 54.431 kg Physical Exam Const: COMMON NORMALS: no acute distress NUTRITIONAL APPEARANCE: cachectic and thin ORIENTATION/CONSCIOUSNESS: Yes awake, Yes oriented to person and Yes oriented to place; not oriented to time Resp: COMMON NORMALS: normal respiratory effort, No retractions, No use of accessory muscles and clear to auscultation bilaterally AUSCULTATION: clear to auscultation bilaterally Cardio: COMMON NORMALS: regular rate, regular rhythm, S1 normal heart sound present and S2 normal heart sound present RATE: regular rate RHYTHM: regular rhythm HEART SOUNDS: S1 normal heart sound present and S2 normal heart sound present GI: COMMON NORMALS: Normal to inspection, nondistended, normoactive bowel sounds present, Soft to palpation, non-tender and No hepatosplenomegaly present PALPATION: Yes Soft to palpation and Yes No hepatosplenomegaly present Extremity: COMMON NORMALS: no pedal edema Neuro: SENSORIUM/ORIENTATION: Yes oriented to person, Yes oriented to place and No oriented to time Data : 05/22/21 10:40 05/21/21 06:50 Micro: Microbiology 05/20/21 18:13 Blood Culture - Preliminary Blood NEGATIVE TO DATE 05/20/21 18:11 Blood Culture - Preliminary Blood A&P Assessment and plan (1) Anemia: Symptomatic Anemia likely 2/2 blood loss from rectosigmoid colonic mass with possible fistulization Chief differential at this time is malignancy given chronicity of symptoms over years, likely slow GI bleeding given otherwise stable hemodynamics Status post 4 units PRBC, 1 unit FFP, 12.1 Monitor hemoglobin, however patient refuses further blood draws Evidence of iron deficiency anemia, replace with IV Venofer here We will have physical therapy work with her, observational therapy work with her, have her set up in a chair today Family will arrange her home environment for her to come home tomorrow Refuses skilled nursing stay Refuses home health care Status: Acute (2) Diarrhea: as above Chronic, ongoing over the past year, less likely infectious etiology Received zosyn and vancomycin in ER closely monitor off further abx for now Status: Acute (3) Pulmonary embolism: May be related to possible malignancy Also a left lower extremity DVT Unable to be anticoagulated due to low HB 4.2 and GI bleeding with + FOBT Dr. Goins consulted, status post IVC filter placement Status: Acute (4) Colonic mass: as above Status post colonoscopy under MAC, findings concerning for rectal carcinoma, will be referred to colorectal surgeon and oncology as outpatient Status: Acute (5) Rectal fistula: Status: Acute (6) Syncope: May be related to symptomatic anemia, hb 4.2 vs orthostatic drop in HB Upon admission noted to have mild tacycardia and systolic BP 90s. Monitor blood pressures, Status: Acute (7) DVT (deep venous thrombosis): Venous ultrasound positive for left lower extremity deep venous system thrombosis involving femoral and popliteal veins. Cannot be anticoagulated, as above, status post IVC filter placement Status: Acute (8) NSTEMI (non-ST elevated myocardial infarction): Likely secondary pulmonary emboli, anemia, colonic mass No chest pain complaints Serial EKGs, troponins, monitor for chest pain Anticoagulation absolutely contraindicated due to anemia Status: Acute (9) Aspiration pneumonia: CT of the chest shows tree-in-bud nodular foci in the lateral right upper lobe, concerning for possible aspiration, continue Zosyn Status: Acute (10) Muscular deconditioning: Status: Acute (11) Protein calorie malnutrition: Status: Acute Plan check COVID PCR for pre surgical screen Attestations Medical Necessity Statement*: Patient requires hospitalization inpatient, for anemia, rectal mass, left lower extremity DVT, pulmonary embolism Coding Level of Care Code Acute Technology Trainer for Chg Fwd Diagnoses Anemia D64.9 Diarrhea R19.7 Pulmonary embolism I26.99 Colonic mass K63.89 Rectal fistula K60.4 Syncope R55 DVT (deep venous thrombosis) I82.409 NSTEMI (non-ST elevated myocardial infarction) I21.4 Aspiration pneumonia J69.0 Muscular deconditioning R29.898 Protein calorie malnutrition E46
--- NOTE | 2021-05-22 18:43 | PC.NURSE ---
This nurse agrees with all documentation and medication administration by Damaris Martinez, Student nurse
[2021-05-22] MEDS: phenyleph-mineral oil-petrolat Oint 28 gm 1 APPLIC TOPICAL (20:19)
[2021-05-23] VITALS: BP 127/70; PULSE 59; RESP 18; TEMP 36.6; O2SAT 96
[2021-05-23] MEDS: pantoprazole 40 mg SDV IVP (00:23)
[2021-05-23 04:00] VITALS: BP 109/55; PULSE 59; RESP 18; TEMP 36.5; O2SAT 97
[2021-05-23] MEDS: piperacillin-tazobactam 3.375 GM in sodium chloride 0.9% (plus) 50 ML IV (04:21)
[2021-05-23 05:18] VITALS: PULSE 59
[2021-05-23 05:19] LABS: Basophils % 0.2 %; Eosinophils # 0.1 10^3/uL (0.0-0.8); Eosinophils % 0.6 %; Hemoglobin 10.2 g/dL (11.5-15.3); Lymphocytes # 1.8 10^3/uL (0.8-4.8); Lymphocytes % 14.1 %; Mean Corpuscular Hemoglobin 22.3 pg (28.0-34.0); Mean Corpuscular Volume 74.2 fl (81-99); Monocytes # 0.5 10^3/uL (0.2-0.9); Monocytes % 4.2 %; Neutrophils # 9.93 10^3/uL (1.8-7.7); Neutrophils % 79.7 %; Nucleated Red Blood Cells % 0 %; Platelet Count 206 10^3/cmm (130-400); Red Blood Count 4.58 10^6/uL (4.1-5.3); Red Cell Distribution Width 25.4 % (12.1-15.1); White Blood Count 12.5 10^3/uL (4.0-10.0)
[2021-05-23 05:37] LABS: INR 1.11 (0.8-1.2)
[2021-05-23 05:41] LABS: Alanine Aminotransferase 7 U/L (0-33); Anion Gap 10.7 (5-19); Globulin 2.8 g/dL (1.3-4.6); Sodium 138 mmol/L (136-145); Total Bilirubin 0.3 mg/dL (0.15-1.2)
[2021-05-23 06:01] LABS: Slide Review Slide Review Perform
[2021-05-23 06:02] LABS: Mean Platelet Volume 8.3 fL (7.4-10.4)
[2021-05-23 06:03] LABS: Albumin Level 2.1 g/dL (3.5-5.2); Blood Urea Nitrogen 11 mg/dL (8-23); Calcium 6.9 mg/dL (8.5-10.5); Carbon Dioxide 21 mmol/L (22-29); Chloride 109 mmol/L (98-107); Osmolality Calculated 285 mOsm/kg (285-295); Phosphorus 2.1 mg/dL (2.5-4.5); Total Protein 4.9 g/dL (6.6-8.7)
[2021-05-23 06:04] LABS: Alkaline Phosphatase 75 IU/L (35-105); Aspartate Amino Transferase 10 U/L (0-32); Glucose 90 mg/dL (65-115); Potassium 2.7 mmol/L (3.5-5.1)
[2021-05-23] MEDS: potassium chloride ER 20 mEq Tablet PO (06:26)
[2021-05-23] MEDS: potassium chloride ER 20 mEq Tablet 40 MEQ PO (06:27)
[2021-05-23 08:56] VITALS: BP 136/73; PULSE 76; RESP 25
--- NOTE | 2021-05-23 09:30 | PC.NURSE ---
Pt and informed that [facility] pharmacy is close on Sundays. Asked if he has any preferred pharmacy. He stated to call at [facility] in [place].
[2021-05-23] MEDS: phosphorus 250 mg Tablet PO (09:52)
[2021-05-23] MEDS: pantoprazole DR 40 mg Tablet PO (09:52)
[2021-05-23] MEDS: phenyleph-mineral oil-petrolat Oint 28 gm 1 APPLIC TOPICAL (09:52)
--- NOTE | 2021-05-23 10:20 | P.DS_ITS ---
Discharge Providers Date of Admission: 05/21/21 00:14 Date of Discharge: May 23, 2021 Attending Provider at Admission: Vira Garnett MD Attending Provider at Discharge: Isauro Andrea MD Diagnoses at Discharge Discharge Diagnosis (1) Anemia: Status: Acute (2) Diarrhea: Status: Acute (3) Pulmonary embolism: Status: Acute (4) Colonic mass: Status: Acute (5) Rectal fistula: Status: Acute (6) Syncope: Status: Acute (7) DVT (deep venous thrombosis): Status: Acute (8) NSTEMI (non-ST elevated myocardial infarction): Status: Acute (9) Aspiration pneumonia: Status: Acute (10) Muscular deconditioning: Status: Acute (11) Protein calorie malnutrition: Status: Acute Reason for Visit Reason for Visit: weakness Hospital Course Hospital Course This is a 71-year-old female with no significant past medical history, who presents [facility] due to weakness, lightheadedness, dizziness Patient was admitted to [facility] for weakness, lightheadedness, dizziness secondary to anemia with a hemoglobin of 4 secondary to likely rectal carcinoma, slow bleed,, left lower extremity DVT, bilateral pulmonary emboli. Anemia: Symptomatic Anemia likely 2/2 blood loss from rectosigmoid colonic mass with possible fistulization Chief differential at this time is malignancy given chronicity of symptoms over years, likely slow GI bleeding given otherwise stable hemodynamics Status post 4 units PRBC, 1 unit FFP, 12.1 Hemoglobin 10.2 Evidence of iron deficiency anemia, received IV Venofer as inpatient, discharged on ferrous sulfate, can consider IV Venofer as outpatient through Dr. Chavarria's office Physical therapy has worked with her, in my opinion she is a at a high risk of falls and deconditioning and further decline, at present she has significant deconditioning, protein calorie malnutrition. I have highly recommended for care home placement however patient refused, discussed morbidity and mortality, risk of fractures, risk of declining functional status, she voices understanding, all questions answered, declined for now, will be discharged home to the care of her , she does not have insurance so she unfortunately will not qualify for home health care. ? Pulmonary embolism: Likely related to rectal carcinoma Also a left lower extremity DVT Unable to be anticoagulated due to low HB 4.2 and GI bleeding with + FOBT Dr. Goins consulted, status post IVC filter placement Follow-up with cardiology in 6 months Advised her to continue to monitor for shortness of breath, wheezing, chest pain if so go to emergency room Discharged on albuterol, Advair Colonic mass: as above Status post colonoscopy under MAC, findings concerning for rectal carcinoma, will be referred to colorectal surgeon and oncology as outpatient, follow with Dr. Ovalles as outpatient ? ? ? Syncope: May be related to symptomatic anemia, hb 4.2 vs orthostatic drop in HB Upon admission noted to have mild tacycardia and systolic BP 90s. Blood pressures were within normal during hospitalization, Advised to ambulate with assistance, monitor for recurrence of syncopal symptoms if so go to emergency room DVT (deep venous thrombosis): Venous ultrasound positive for left lower extremity deep venous system thrombosis involving femoral and popliteal veins. Cannot be anticoagulated, as above, status post IVC filter placement, advised to ambulate under supervision NSTEMI (non-ST elevated myocardial infarction): Likely secondary pulmonary emboli, anemia, colonic mass No chest pain complaints Serial EKGs, troponins, monitor for chest pain Anticoagulation absolutely contraindicated due to anemia No chest pain complaints, continue to monitor ? Aspiration pneumonia: CT of the chest shows tree-in-bud nodular foci in the lateral right upper lobe, concerning for possible aspiration, continue Zosyn, discharged on Augmentin (10) Muscular deconditioning: (11) Protein calorie malnutrition: ?Status:?Acute Physical Exam Const: COMMON NORMALS: no acute distress and patient oriented x3 Resp: COMMON NORMALS: normal respiratory effort, No retractions, No use of accessory muscles and clear to auscultation bilaterally AUSCULTATION: clear to auscultation bilaterally Cardio: COMMON NORMALS: regular rate, regular rhythm, S1 normal heart sound present and S2 normal heart sound present RATE: regular rate RHYTHM: regular rhythm HEART SOUNDS: S1 normal heart sound present and S2 normal heart sound present GI: COMMON NORMALS: Normal to inspection, nondistended, normoactive bowel sounds present, Soft to palpation, non-tender and No hepatosplenomegaly present PALPATION: Yes Soft to palpation and Yes No hepatosplenomegaly present Extremity: COMMON NORMALS: no pedal edema Neuro: COMMON NORMALS: patient oriented x3 Psych: COMMON NORMALS: mental status grossly normal Discharge Data Studies Completed and Pending Completed Studies During Hospitalization Category Date Time Status CT abdomen pelvis w con* [id number] Urgent Cat Scan 05/20/21 17:[address] facial bones wo con* [id number] Urgent Cat Scan 05/20/21 18:[address] head wo con* [id number] Urgent Cat Scan 05/20/21 18:53 Completed CTA chest abdomen pelvis [CT angio chest abdomen pelvis Cat Scan 05/20/21 19:55 Completed ] [place] [id number] Urgent Ultrasound 05/21/21 00:14 Completed Pending at discharge Category Date Time Status [employer]IST request for service Routine Exams 05/21/21 08:16 Taken Blood Culture Stat Lab 05/20/21 18:11 Results COVID OZH [Coronavirus PCR] Routine Lab 05/20/21 23:21 Uncollected Complete Blood Count w/Auto AM LABS Lab 05/24/21 04:00 Ordered Comprehensive Metabolic Panel AM LABS Lab 05/24/21 04:00 Ordered Magnesium AM LABS Lab 05/24/21 04:00 Ordered Phosphorus AM LABS Lab 05/24/21 04:00 Ordered Prothrombin Time INR AM LABS Lab 05/24/21 04:00 Ordered UA w/Reflex to Microscope [Urinalysis] Stat Lab 05/20/21 17:38 Uncollected Pathology: Surgical [PTH] Routine Pth 05/22/21 08:12 Received CV. echo complete* [id number] Routine Ultrasound 05/21/21 02:18 Taken Radiology Impressions Abdomen/Pelvis CT 05/20/21 17:38 IMPRESSION: 1. Pulmonary embolism is suspected. Recommend correlation with CT angiogram of the chest. 2. Rectosigmoid colonic mass with fistula is suspected. Proctocolitis secondary to inflammatory bowel disease not excluded. Correlation with endoscopy recommended. ADDENDUM: 05/20/212012 THIS REPORT CONTAINS FINDINGS THAT MAY BE CRITICAL TO PATIENT CARE. The findings were verbally communicated via telephone conference with TC MEJIA at 8:11 PM ENGINE HEAD REPAIRER on 05/20/2021. The findings were acknowledged and understood. Face CT 05/20/21 18:53 IMPRESSION: 1. No acute fracture of the facial bones. 2. Mild mucoperiosteal thickening in the the right and left ethmoid and maxillary sinuses. 3. Incidental/nonacute findings are listed in the report. Head CT 05/20/21 18:53 IMPRESSION: 1. No acute abnormality of the brain. 2. Mild mucoperiosteal thickening in the the visualized ethmoid sinuses. 3. Incidental/nonacute findings are listed in the report. Chest/Abdomen/Pelvis CTA 05/20/21 19:55 IMPRESSION: 1. Positive for bilateral pulmonary embolism. 2. No convincing CT angiogram evidence of significant right heart strain. 3. Clustered tree-in-bud nodular foci in the lateral right upper lobe which could represent post infectious change, or represent acute pneumonitis features. IMPRESSION: 1. Negative for active gastrointestinal bleeding. 2. Redemonstration of possible rectosigmoid colonic mass and possible rectal/perirectal fistula. Venous Duplex 05/21/21 00:14 IMPRESSION: Positive for left lower extremity deep venous system thrombosis involving femoral and popliteal veins. Laboratory Results WBC 12.5 10^3/uL (4.0-10.0) H 05/23/21 05:06 RBC 4.58 10^6/uL (4.1-5.3) 05/23/21 05:06 Hgb 10.2 g/dL (11.5-15.3) L 05/23/21 05:06 Hct 34.0 % (37.0-47.0) L 05/23/21 05:06 MCV 74.2 fl (81-99) L 05/23/21 05:06 MCH 22.3 pg (28.0-34.0) L 05/23/21 05:06 MCHC 30.0 g/dL (30.0-36.0) 05/23/21 05:06 RDW 25.4 % (12.1-15.1) H 05/23/21 05:06 Plt Count 206 10^3/cmm (130-400) 05/23/21 05:06 MPV 8.3 fL (7.4-10.4) 05/23/21 05:06 Neut % (Auto) 79.7 % 05/23/21 05:06 Lymph % (Auto) 14.1 % 05/23/21 05:06 Kinney % (Auto) 4.2 % 05/23/21 05:06 Eos % (Auto) 0.6 % 05/23/21 05:06 Baso % (Auto) 0.2 % 05/23/21 05:06 Neut # (Auto) 9.93 10^3/uL (1.8-7.7) H 05/23/21 05:06 Lymph # (Auto) 1.8 10^3/uL (0.8-4.8) 05/23/21 05:06 Kinney # (Auto) 0.5 10^3/uL (0.2-0.9) 05/23/21 05:06 Eos # (Auto) 0.1 10^3/uL (0.0-0.8) 05/23/21 05:06 Baso # (Auto) 0.0 10^3/uL (0.0-0.1) 05/23/21 05:06 Nucleated RBC % (auto) 0 % 05/23/21 05:06 Total Counted 100 (0-100) 05/22/21 10:40 Atypical Lymphs % 0.0 % (0-5) 05/22/21 10:40 Absolute Neutrophils 19.6 10^3/cmm (1.4-6.5) H 05/22/21 10:40 Segmented Neutrophils 68 % 05/22/21 10:40 Abs Segm Neuts (Man) 15.2 10/cmm (1.6-7.1) H 05/22/21 10:40 Band Neutrophils 20.0 % 05/22/21 10:40 Abs Band Neuts (Man) 4.5 10^3/cmm (0.0-1.2) H 05/22/21 10:40 Absolute Lymphocytes 1.6 10^3/cmm (1.2-3.4) 05/22/21 10:40 Lymphocytes (Manual) 7 % 05/22/21 10:40 Monocytes (Manual) 5.0 % 05/22/21 10:40 Absolute Monocytes 1.1 10^3/cmm (0.1-0.6) H 05/22/21 10:40 Eosinophils (Manual) 0 % 05/22/21 10:40 Absolute Eosinophils 0.0 10^3/cmm (0.0-0.7) 05/22/21 10:40 Basophils (Manual) 0.0 % 05/22/21 10:40 Absolute Basophils 0.0 10^3/cmm (0.0-0.2) 05/22/21 10:40 Nucleated RBCs # 0.0 /100WBC 05/23/21 05:06 Platelet Estimate Normal (Normal) 05/22/21 10:40 Polychromasia 1+ H 05/22/21 10:40 Hypochromasia 2+ H 05/22/21 10:40 Poikilocytosis 2+ H 05/22/21 10:40 Anisocytosis 2+ H 05/22/21 10:40 PT 14.70 SECONDS (12.1-14.9) 05/23/21 05:06 INR 1.11 (0.8-1.2) 05/23/21 05:06 APTT 36.3 SECONDS (23.9-36.7) 05/21/21 08:00 Sodium 138 mmol/L (136-145) 05/23/21 05:06 Potassium 2.7 mmol/L (3.5-5.1) L* 05/23/21 05:06 Chloride 109 mmol/L (98-107) H 05/23/21 05:06 Carbon Dioxide 21 mmol/L (22-29) L 05/23/21 05:06 Anion Gap 10.7 (5-19) 05/23/21 05:06 BUN 11 mg/dL (8-23) 05/23/21 05:06 Creatinine 0.6 mg/dL (0.5-0.9) 05/23/21 05:06 GFR Calculation Not Reportable 05/23/21 05:06 Glucose 90 mg/dL (65-115) 05/23/21 05:06 Calculated Osmolality 285 mOsm/kg (285-295) 05/23/21 05:06 Lactic Acid 1.4 mmol/L (0.5-2.2) 05/21/21 06:50 Lactate 5.8 mmol/L (0.5-2.2) H* 05/20/21 18:13 Calcium 6.9 mg/dL (8.5-10.5) L 05/23/21 05:06 Phosphorus 2.1 mg/dL (2.5-4.5) L 05/23/21 05:06 Magnesium 2.0 mg/dL (1.7-2.3) 05/23/21 05:06 Iron 12 ug/dL (37-145) L 05/20/21 16:52 Ferritin 18 ng/mL (15-150) 05/20/21 16:52 Total Bilirubin 0.3 mg/dL (0.15-1.2) 05/23/21 05:06 AST 10 U/L (0-32) 05/23/21 05:06 ALT 7 U/L (0-33) 05/23/21 05:06 Alkaline Phosphatase 75 IU/L (35-105) 05/23/21 05:06 Troponin T Baseline 22 ng/L (0-10) H 05/20/21 16:52 Troponin T Hi Sens 6Hr 42.74 ng/L (0-10) H 05/21/21 00:45 Troponin T Hi Sens 6Hr Delta 20.74 ng/L (0-12) H* 05/21/21 00:45 C-Reactive Protein Cancelled 05/22/21 10:40 NT-Pro-B Natriuret Pep Cancelled 05/22/21 10:40 Total Protein 4.9 g/dL (6.6-8.7) L 05/23/21 05:06 Albumin 2.1 g/dL (3.5-5.2) L 05/23/21 05:06 Globulin 2.8 g/dL (1.3-4.6) 05/23/21 05:06 Lipase 15 U/L (13-60) 05/20/21 16:52 Carcinoembryonic Ag 2.2 ng/mL (0.0-4.7) 05/21/21 12:30 Vitamin B12 367 pg/mL (232-1245) 05/20/21 16:52 Folate 7.9 ng/mL (4.8-37.3) 05/20/21 16:52 Procalcitonin Cancelled 05/22/21 10:40 Blood Type A Positive 05/20/21 18:28 Rho(D) Type Positive 05/20/21 18:28 Antibody Screen Negative 05/20/21 18:28 Crossmatch See Detail 05/20/21 18:28 Vitals Last Vital Signs Temp 97.7 F 05/23/21 04:00 Pulse 76 05/23/21 08:56 Resp 25 H 05/23/21 08:56 BP 136/73 05/23/21 08:56 Pulse Ox 97 05/23/21 04:00 Discharge Plan Discharge Patient Disposition: Home Condition: Stable Prescriptions: New Preparation H 0.25-14-74.9 % Ointment 1 applic topical QID Qty: 57 0RF Phospha 250 Neutral 250 mg Tablet 250 mg PO BID 3 Days Qty: 2 0RF pantoprazole 40 mg Tablet,Delayed Release (Dr/Ec) 40 mg PO BID 30 Days Qty: 60 0RF potassium chloride [Klor-Con M20] 20 mEq tablet,ER particles/crystals 20 meq PO DAILY 3 Days Qty: 3 0RF amoxicillin-pot clavulanate [Augmentin] 875-125 mg tablet 1 tab PO BID 5 Days Qty: 10 0RF ferrous sulfate 325 mg (65 mg iron) tablet,delayed release (DR/EC) 325 mg PO BID 30 Days Qty: 60 0RF Discontinued Zyrtec 10 mg Tablet 10 mg PO DAILY 0RF Discharge Orders: Discharge Order (Routine); Ordered 05/23/21 Ordered By: Isauro Andrea Referrals: Kelton Goins M.D [Physician] - 6 months Twan Ovalles MD [Physician] - 4-7 days Asher Chavarria MD [Hospitalist] - 1-3 days (rectal cancer, anemia, dvt, pe) Discharge Diet: Regular Discharge Activity: Resume usual activity Patient Instructions: GI Discharge Instructions, Opioid Safety Activity Restrictions/Additional Instructions: -Please hydrate well -Drink Ensure drinks or boost twice a day -Please ambulate with care, monitor for lightheadedness, dizziness, near falls if so see primary care -Need to monitor hemoglobin due to anemia, follow-up with Dr. Chavarria in 1 to 3 days for recheck hemoglobin -If you feel lightheaded, dizzy, weak, and might be that your becoming more anemic and you might need blood, go to the emergency room if needed -Follow-up with Dr. Chavarria for discussion of rectal cancer -Follow with Dr. Ovalles, will likely need to be referred to a colorectal surgeon in [place] -Take antibiotics as prescribed -Take iron supplementation as prescribed Discharge Attestations Time Spent in Discharge Care*: less than 30 min Quality Metrics Clinical Quality Measures [ Venous Thromboembolism { Contraindication to Overlap Therapy: Overlap treatment not indicated; VTE Discharge Education: Follow-up arranged; Contraindication to Pharm VTE Prophylaxis: Medical contraindication;}] Coding Level of Care Code Acute Chg FW WA note Diagnoses Anemia D64.9 Diarrhea R19.7 Pulmonary embolism I26.99 Colonic mass K63.89 Rectal fistula K60.4 Syncope R55 DVT (deep venous thrombosis) I82.409 NSTEMI (non-ST elevated myocardial infarction) I21.4 Aspiration pneumonia J69.0 Muscular deconditioning R29.898 Protein calorie malnutrition E46
[2021-05-23 13:16] VITALS: BP 137/82; PULSE 60; RESP 18; TEMP 36.6
[2021-05-23 13:19] VITALS: BP 137/82; PULSE 60; RESP 18; TEMP 36.6; O2SAT 97
--- NOTE | 2021-05-23 13:37 | PC.NURSE ---
Discharge Note Patient discharged to home via private vehicle accompanied by and son. Discharge instructions reviewed with patient and/or procurement representative. Mobile pharmacy medications and/or prescriptions provided. Belongings/home medications returned. Discharge instructions, ff-up appointments and new meds discuss to pt and . discharge packet provided to pt.
[2021-06-03 11:44] LABS: Miscellaneous Test See Scanned Lab Rpt
== END 2021-05-23 13:20 | disposition home or self-care (01) | DRG 811 ==
LOC: ER 23:40 → CSU 23:41
PROVIDERS: Internal Medicine; Surgery; Admitting Provider Student in an Organized Health Care Education/Training Program; Emergency Provider Emergency Medicine; Visit Provider Family Medicine
PROC: 06H03DZ Insertion of Intraluminal Device into Inferior Vena Cava, Percutaneous Approach (ICD-10-PCS; CPT 37191; principal; 2021-05-21 08:30)
PROC: 0DJD8ZZ Inspection of Lower Intestinal Tract, Via Natural or Artificial Opening Endoscopic (ICD-10-PCS; CPT 45378; principal; 2021-05-22 08:00)
DX: D50.9 Iron deficiency anemia, unspecified (principal); I26.99 Other pulmonary embolism without acute cor pulmonale; J69.0 Pneumonitis due to inhalation of food and vomit; C20 Malignant neoplasm of rectum; E46 Unspecified protein-calorie malnutrition; K51.313 Ulcerative (chronic) rectosigmoiditis with fistula; I82.432 Acute embolism and thrombosis of left popliteal vein; I82.412 Acute embolism and thrombosis of left femoral vein; R29.898 Other symptoms and signs involving the musculoskeletal system; Z68.20 Body mass index [BMI] 20.0-20.9, adult; K62.89 Other specified diseases of anus and rectum; E87.6 Hypokalemia; E83.51 Hypocalcemia; W19.XXXA Unspecified fall, initial encounter; R19.7 Diarrhea, unspecified; J44.9 Chronic obstructive pulmonary disease, unspecified; R55 Syncope and collapse
CPT/HCPCS: 36010; 36415; 36430; 37191; 45380; 70450; 70486; 71275; 74174; 74177; 80053; 82274; 82378; 82607; 82728; 82746; 83540; 83605; 83690; 83735; 84100; 84484; 85007; 85014; 85018; 85025; 85610; 85730; 86850; 86900; 86920; 86927; 87040; 87077; 87205; 88305; 88341; 88342; 93005; 93306; 93970; 96365; 96367; 96375; 97165; 97535; 99285; C1769; C1880; C1887; C1894; C9113; J1644; J1756; J2250; J2543; J2704; J3010; J3370; J3490; J7030; J7050; P9016; P9017; Q9967

== ENCOUNTER 2021-06-01 12:40 | Outpatient (CLI) | payer MEDICAID, SELFPAY ==
[2021-06-01 13:09] LABS: Basophils % 0.2 %; Eosinophils % 0.1 %; Hematocrit 38.5 % (37.0-47.0); Hemoglobin 11.9 g/dL (11.5-15.3); Lymphocytes # 0.9 10^3/uL (0.8-4.8); Mean Corpuscular HGB Conc 30.9 g/dL (30.0-36.0); Mean Corpuscular Hemoglobin 25.4 pg (28.0-34.0); Mean Corpuscular Volume 82.1 fl (81-99); Mean Platelet Volume 8.5 fL (7.4-10.4); Monocytes # 0.5 10^3/uL (0.2-0.9); Monocytes % 5.6 %; Neutrophils # 7.73 10^3/uL (1.8-7.7); Neutrophils % 83.9 %; Nucleated Red Blood Cells % 0 %; Platelet Count 514 10^3/cmm (130-400); Red Blood Count 4.69 10^6/uL (4.1-5.3); Red Cell Distribution Width 30.2 % (12.1-15.1); White Blood Count 9.2 10^3/uL (4.0-10.0)
== END 2021-06-01 12:41 | disposition home or self-care (01) ==
LOC: LAB 12:41
PROVIDERS: PCP Surgery; Visit Provider Surgery
DX: K62.89 Other specified diseases of anus and rectum (principal)
CPT/HCPCS: 85025

== ENCOUNTER 2021-06-22 14:15 | Outpatient (CLI) | payer MEDICAID, SELFPAY ==
[2021-06-22 17:02] LABS: Basophils % 0.1 %; Eosinophils # 0.1 10^3/uL (0.0-0.8); Eosinophils % 1.3 %; Hematocrit 35.5 % (37.0-47.0); Hemoglobin 10.6 g/dL (11.5-15.3); Lymphocytes # 1.9 10^3/uL (0.8-4.8); Mean Corpuscular HGB Conc 29.9 g/dL (30.0-36.0); Mean Corpuscular Hemoglobin 26.6 pg (28.0-34.0); Mean Corpuscular Volume 89.2 fl (81-99); Mean Platelet Volume 8.7 fL (7.4-10.4); Monocytes # 0.5 10^3/uL (0.2-0.9); Monocytes % 6.7 %; Neutrophils # 4.28 10^3/uL (1.8-7.7); Neutrophils % 63.8 %; Nucleated Red Blood Cells % 0 %; Platelet Count 455 10^3/cmm (130-400); Red Blood Count 3.98 10^6/uL (4.1-5.3); Red Cell Distribution Width 23.9 % (12.1-15.1); White Blood Count 6.7 10^3/uL (4.0-10.0)
[2021-06-22 17:47] LABS: Carcinoembryonic Antigen 4.6 ng/mL (0.0-4.7)
[2021-06-22 17:58] LABS: Alanine Aminotransferase 6 U/L (0-33); Albumin Level 2.8 g/dL (3.5-5.2); Alkaline Phosphatase 101 IU/L (35-105); Anion Gap 11.7 (5-19); Aspartate Amino Transferase 11 U/L (0-32); Blood Urea Nitrogen 12 mg/dL (8-23); Calcium 8.7 mg/dL (8.5-10.5); Carbon Dioxide 28 mmol/L (22-29); Chloride 104 mmol/L (98-107); Globulin 3.1 g/dL (1.3-4.6); Glucose 180 mg/dL (65-115); Osmolality Calculated 296 mOsm/kg (285-295); Sodium 141 mmol/L (136-145); Total Bilirubin 0.2 mg/dL (0.15-1.2); Total Protein 5.9 g/dL (6.6-8.7)
[2021-06-23 11:08] LABS: Potassium 2.7 mmol/L (3.5-5.1)
--- NOTE | 2021-06-23 18:09 | ONC CON_ITS ---
Dr. Barakat New Patient Note Patient: Teresa Jha < Unit #: [id number]: 1950 Dicatated By: Glynn Barakat M.D.Date of Visit: Jun 22, 2021 Onc MED New Patient/Consult Referring Physician: Dr. GILBERTO JEAN BAPTISTE M.D. History of Present Illness: Mrs. Teresa Jha, is a 71-year-old female with no significant past medical history admitted to hospital on May 21, 2021 with progressive diarrhea, significant weight loss, progressive generalized weakness and fatigue and near syncopal attack and lab work-up done in ER showed hemoglobin 4.2 g, hematocrit 18.1%, white blood count 12.1 platelets 255,000 MCV 63.7, patient was given 2 units of packed RBC, and lab work-up also showed potassium 3.2 lactate of 5.8 because of abdominal pain she was started on vancomycin and Zosyn, CT scan of abdomen pelvis was done which showed rectosigmoid inflammation with a fistula. And pulmonary embolism was suspected. So CTA chest was done on May 20, 2021 which showed positive for bilateral pulmonary embolism, no convincing CT angiogram evidence of significant right heart strain. Clustered tree-in-bud nodular foci in the lateral right upper lobe could be infectious or acute pneumonitis.,, Venous Doppler study of left leg shows DVT involving femoral and popliteal veins, patient was transferred to [facility] for further care and underwent colonoscopy on May 22, 2021 which showed circumferential mass extending from 7 cm at anal verge to about 15 cm, biopsy was obtained which confirmed moderately differentiated invasive adenocarcinoma with signet ring and mucinous component. Patient was seen by Dr. Call on June 04, 2021 and based on patient's poor performance status, he recommended diverting colostomy so on June 06, 2021 she underwent laparoscopic loop sigmoid colostomy which showed no evidence of intra-abdominal tumor spread but findings were suggestive of locally advanced tumor, no evidence of fistula or direct tumor invasion into vagina but a very large tumor which was taking up most of her upper pelvis. Patient denies any smoking or alcohol use Patient denies any fever chills, denies any nausea or vomiting denies any diarrhea or constipation denies any abdominal pain, denies any jaundice, overall feeling much better since colostomy done, now here to discuss about treatment options. Past Medical History: Ms. Jha's medical history consists of anemia, history of dvt, history of pulmonary emboli, hypokalemia, hypomagnesemia, left hydronephrosis, liver cyst, stroke, and urinary retention. Past Surgical History: Ms. Jha's surgical/procedural history consists of colonoscopy and laparascopic loop colostomy. Medications: Docusate Sodium Capsule Oral PRN, Eliquis Tablet Oral b.i.d., Ferrous Sulfate 1 Tablet Oral daily, Tylenol Tablet Oral b.i.d. Allergies: No Known Allergies. Social History: Ms. Jha is . Ms. Jha no longer smokes. She drinks occasionally. Family History: Ms. Jha's mother at age 87: stroke. Ms. Jha's father is : renal failure, and melanoma. Review Of Symptoms: Review of Systems is not available for this patient. Vital Signs: Performed on Jun 23, 2021 09:54: 61 in, 110.8 lbs, 98 F, 48 /min (LOW), 18 /min, 151/63 mm(hg) (HIGH), 96 %, 0, 0, Performed on Jun 23, 2021 09:54: 20.936 kg/m2, and Performed on Jun 22, 2021 15:39: 1.47 sq.m. Performance Status: 2 - Ambulatory/capable of all self-care, unable to perform any work activities. Up and about more than 50% of waking hours. (ECOG) Physical Examination: ENMT - No mouth sores, no thrush, no jaundice, Cardiovascular - Poor air entry otherwise clear, Chest - Regular rate and rhythm, Gastrointestinal - Soft, bowel sounds present, colostomy functioning fine, Extremities - 1+ edema left leg. Lab/Imaging: Most recent lab results are not available for this patient. 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 Left leg DVT/bilateral pulmonary embolism, now on Eliquis Plan: Discussed with patient regarding her disease status and treatment options, as per NCCN guidelines she is a candidate for either total neoadjuvant therapy with FOLFOX 12 to 16 weeks followed by combined chemoradiation with oral Xeloda, followed by surgery or combined chemoradiation with oral Xeloda followed by surgical evaluation and followed by adjuvant therapy with FOLFOX 12 to 16 weeks. Considering patient's overall performance status, she may not tolerate total neoadjuvant therapy upfront, so we will consider combined chemoradiation with oral Xeloda followed by surgical evaluation and after definitive surgery, adjuvant therapy with FOLFOX. All the side effect possible benefits associated with oral Xeloda concurrent with radiation therapy including but not limited to bone marrow suppression, nausea vomiting, mouth sores, diarrhea, jaundice, skin rash, hand-foot syndrome, hair loss were mentioned, further teaching will done by chemotherapy nurse. We will obtain approval from her insurance prior to the treatment. We will refer her to radiation oncology for evaluation for combined chemoradiation for locally advanced rectal cancer. In the meantime, we will obtain baseline CBC CMP and CEA level and patient return to clinic 1 week after combined chemoradiation initiated with CBC CMP Signed By: Glynn Barakat M.D. <<Signature on File>>
== END 2021-06-22 14:16 | disposition home or self-care (01) ==
LOC: ONCMED 14:22
PROVIDERS: PCP Surgery; Visit Provider Internal Medicine Hematology & Oncology
DX: C20 Malignant neoplasm of rectum (principal); R63.4 Abnormal weight loss; K52.9 Noninfective gastroenteritis and colitis, unspecified; D50.9 Iron deficiency anemia, unspecified; Z79.899 Other long term (current) drug therapy
CPT/HCPCS: 36415; 80053; 82378; 85025; 99205

== ENCOUNTER 2021-06-23 09:45 | Outpatient (CLI) | payer MEDICAID, SELFPAY ==
--- NOTE | 2021-06-23 10:38 | N.ONRAD NP_ITS ---
Radiation Oncology Consultation Patient Name: Teresa Jha Date of : 1950 Date of Service: 06/23/2021 Attending Physician: Miquel Madera M.D. Teresa Jha was seen in consultation this morning at the request of Danish Barakat M.D. for consideration of pelvic radiotherapy in the management of a recently diagnosed rectal cancer. She was evaluated at the [facility] Emergency Department on May 20, 2021 for persistent bloody diarrhea and a syncopal episode. Her initial blood pressure was 97/53 mmHg. Complete blood count revealed a hemoglobin of 4.2 g/dL with an RDW of 22.8%. An abdominopelvic CT scan (independently reviewed in [facility]) described luminal narrowing of the rectum and segmental pulmonary artery filling defects in the right lower lobe of the lung. A CTA confirmed bilateral pulmonary artery filling defects within the lobar and segmental regions of the lower lobes and left upper lobe of the lungs. The patient was admitted for further management. A venous duplex of the lower extremities confirmed a thrombosis involving the femoral and popliteal veins of the left lower extremity. An IVC filter placed on May 21, 2021. A colonoscopy was completed by Josr Trent M.D. on May 22, 2021. A circumferential mass was identified at 7 cm from the anal verge. The lesion extended to 15 cm above the anal verge. A biopsy (personally appraised in [facility]) diagnosed a moderately differentiated invasive adenocarcinoma with signet ring and mucinous components. Normal expression of DNA mismatch repair proteins was noted. An exam under anesthesia with laparoscopic loop sigmoid colostomy was performed by Brandon Call M.D. at [facility] in [place], [place] on June 06, 2021. The operative findings included a large, locally advanced tumor in the upper pelvis with involvement of the rectovaginal septum. A colostomy revision was performed on June 09, 2021 on account of a colostomy retraction. No further postoperative complications have developed. She was evaluated for discussion regarding neoadjuvant pelvic radiotherapy. I discussed with Ms. Jha the [place] [employer] for rectal cancer and specifically the patient's presumed clinical stage IIA (T3N0) versus stage IIIB (T3N1/N2) corresponding to her disease. I also reviewed the National Comprehensive Cancer Network Guidelines recommending neoadjuvant chemoradiotherapy or total neoadjuvant therapy preceding chemoradiation. I would endorse a five week course of pelvic radiotherapy. A computed tomographic radiotherapy planning scan with contrast in the treatment position will be acquired to delineate the gross tumor volume and regional lymph nodes. The potential toxicities of pelvic radiotherapy were reviewed. The patient has verbalized understanding would like to proceed as recommended. The patient's medical treatment plan was discussed with Danish Barakat M.D. Signed by: Miquel Madera 07/02/2021 9:18:42 AM
[2021-06-23 12:07] LABS: Magnesium 1.6 mg/dL (1.7-2.3)
== END 2021-06-23 09:46 | disposition home or self-care (01) ==
PROVIDERS: Absent Provider Internal Medicine Hematology & Oncology; PCP Surgery; Visit Provider Radiology Radiation Oncology
DX: C20 Malignant neoplasm of rectum (principal); K92.1 Melena; R55 Syncope and collapse; I82.412 Acute embolism and thrombosis of left femoral vein; I82.432 Acute embolism and thrombosis of left popliteal vein; Z79.899 Other long term (current) drug therapy
CPT/HCPCS: 83735; 99205

== ENCOUNTER 2021-07-06 09:31 | Outpatient (RCR) | payer MEDICAID, SELFPAY ==
--- NOTE | 2021-07-06 | CT_ITS ---
Radiation Therapy Planning CT images; total exam DLP: 354.18 mGy-cm MTDD
== END 2021-07-10 23:59 | disposition home or self-care (01) ==
LOC: ONCMED 09:31
PROVIDERS: PCP Surgery; Visit Provider Radiology Radiation Oncology
DX: Z51.0 Encounter for antineoplastic radiation therapy (principal); C20 Malignant neoplasm of rectum; Z79.899 Other long term (current) drug therapy
CPT/HCPCS: 77334; 77470; Q9967

== ENCOUNTER 2021-07-22 20:56 | Emergency (ER) | payer MEDICAID, SELFPAY ==
--- NOTE | 2021-07-22 20:57 | XRR_ITS ---
PROCEDURE INFORMATION: Exam: XR Abdomen Exam date and time: 07/22/2021 9:38 PM Age: 71 years old Clinical indication: Abdominal pain; Localized; Right; Prior surgery; Surgery type: Ivc filter; Patient HX: C/O RT sided abd pain with constipation TECHNIQUE: Imaging protocol: XR of the abdomen. Views: Frontal supine view of the abdomen. 1 View. COMPARISON: CT abdomen pelvis w con* [id number] 05/20/2021 7:11 PM FINDINGS: Gastrointestinal tract: Moderate prominent retained feces in the transverse colon and right colon. Vasculature: Interval placement of IVC filter. One or more calcified pelvic phleboliths. Bones/joints: Unremarkable. XR/XR KUB [id number] IMPRESSION: 1. Interval placement of IVC filter. 2. Moderate prominent retained feces in the transverse colon and right colon. COMMENTS: For patients with an IVC filter, recommend assessment for a management plan for the patient's IVC filter. If there is no established management plan, recommend referral to an interventional clinician on a nonemergent basis for evaluation.
[2021-07-22 22:19] VITALS: BP 97/65; PULSE 123; RESP 20; TEMP 36.8; O2SAT 95; BMI 17.9
[2021-07-23] VITALS (15 sets, daily range): BP systolic 114–128; BP diastolic 65–79; PULSE 92–125; RESP 16–18; O2SAT 92–99
--- NOTE | 2021-07-23 01:21 | CTR_ITS ---
PROCEDURE INFORMATION: Exam: CT Abdomen And Pelvis Without Contrast Exam date and time: 07/23/2021 1:32 AM Age: 71 years old Clinical indication: Abdominal pain; Localized; Right; Prior surgery; Surgery type: Colostomy; Patient HX: C/O RT sided abd pain with constipation. History of colorectal cancer. TECHNIQUE: Imaging protocol: Computed tomography of the abdomen and pelvis without contrast. Radiation optimization: All CT scans at this facility use at least one of these dose optimization techniques: automated exposure control; mA and/or kV adjustment per patient size (includes targeted exams where dose is matched to clinical indication); or iterative reconstruction. COMPARISON: CT abdomen pelvis w con* [id number] 05/20/2021 7:11 PM RADIATION DOSE METRICS: Total DLP (mGy-cm): 473.88 FINDINGS: Lungs: Bilateral discoid atelectasis and/or scarring. Diaphragm: Mild to moderate hiatal hernia. Liver: Multiple hepatic cysts at least one of which measures larger than 1.0 cm in size. Other low-attenuation lesions in the liver are too small to characterize. Gallbladder and bile ducts: Normal. No calcified stones. No ductal dilation. Pancreas: Normal. No ductal dilation. Spleen: Normal. No splenomegaly. Adrenal glands: Normal. No mass. Kidneys and ureters: One or more nonobstructing right renal calyceal stones. Stomach and bowel: Interval left lower quadrant colostomy. Resection of the mid sigmoid colon with staple line. Probable prominent residual or recurrent 6.9 x 7.7 x 6.0 cm bulky distal sigmoid colon tumor which may be creating obstruction in the dilated rectosigmoid stump proximal to the tumor. Moderate bowel wall thickening in the distal rectum consistent with tumor versus infectious proctitis. Appendix: No evidence of appendicitis. Intraperitoneal space: Unremarkable. No free air. No significant fluid collection. Vasculature: Calcification of the abdominal aorta and/or iliac arteries consistent with atherosclerotic vessel disease. IVC filter. Lymph nodes: Unremarkable. No enlarged lymph nodes. Urinary bladder: Unremarkable as visualized. Reproductive: Unremarkable as visualized. Bones/joints: Unremarkable. No acute fracture. Soft tissues: Unremarkable. CT/CT kidney stone [id number] IMPRESSION: 1. Interval left lower quadrant colostomy. 2. Resection of the mid sigmoid colon with staple line. 3. Probable prominent residual or recurrent 6.9 x 7.7 x 6.0 cm bulky distal sigmoid colon tumor which may be creating obstruction in the dilated rectosigmoid stump proximal to the tumor. 4. Moderate bowel wall thickening in the distal rectum consistent with tumor versus infectious proctitis. COMMENTS: For patients with an IVC filter, recommend assessment for a management plan for the patient's IVC filter. If there is no established management plan, recommend referral to an interventional clinician on a nonemergent basis for evaluation.
--- NOTE | 2021-07-23 01:43 | W.ED.ABDPA2 ---
HPI - Abdominal Pain General: Chief Complaint: Abdominal Pain Stated Complaint: constipated Time Seen by Provider: 07/22/21 23:19 Source: patient Mode of arrival: ambulatory Limitations: no limitations History of Present Illness: 71-year-old female has a history of bowel cancer she had had a ostomy placed due to this in May. She states that she has been constipated with increasing abdominal pain over the last 2 to 3 days states her pain is diffuse with some distention rates her pain 8 out of 10 denies any vomiting denies any fevers denies any worsening improving factors. Associated Symptoms: Reports constipation; Denies chills, dysuria and fever(s) Review of Systems Const: Denies: fever(s), chills, body aches or change in appetite Eyes: Denies: blurry vision or eye discomfort ENMT: Denies: throat pain or dental pain Card: Denies: chest pain Resp: Denies: dyspnea GI: Reports: abdominal pain and constipation : Denies: dysuria Musc: Denies: neck pain or back pain Skin/Breast: Denies: rash Neuro: Denies: headache(s) Psych: Denies: depression Kevyn/Lymph: Denies: easy bruising All/Imm: Denies: urticaria PFSH ED PFSH: Medical History Diarrhea Surgical History S/P IVC filter Status post colonoscopy (05/22/21) Family History Father Diabetes Heart disease Mother Stroke Heart disease Denies family history of Colon cancer Ovarian cancer Clotting disorder Hyperlipidemia Breast cancer Anesthesia complication Bleeding disorder Hypertension Uterine cancer Thyroid condition Social History Smoking and tobacco status: never smoked Alcohol intake: never Physical Exam Const: COMMON NORMALS: no acute distress, patient oriented x3 and healthy appearing HENMT: COMMON NORMALS: normocephalic and atraumatic HEAD & SCALP: normocephalic and atraumatic Eye: COMMON NORMALS: Equal, round and reactive pupils present and EOMs intact bilaterally PUPIL: Yes Equal, round and reactive pupils present Neck/C-Spine: COMMON NORMALS: full ROM and supple Chest: COMMONS NORMALS: normal inspection of the chest and normal palpation of entire chest wall Resp: COMMON NORMALS: normal respiratory effort, No retractions, No use of accessory muscles and clear to auscultation bilaterally AUSCULTATION: clear to auscultation bilaterally Cardio: COMMON NORMALS: regular rate, regular rhythm and No murmurs present (Cardio) RATE: regular rate RHYTHM: regular rhythm GI: OTHER: Ostomy in place tenderness around the ostomy with diffuse abdominal tenderness slight distention Extremity: COMMON NORMALS: normal to inspection and full ROM Neuro: COMMON NORMALS: patient oriented x3, moves all extremities and no focal motor deficits Psych: COMMON NORMALS: mental status grossly normal, Normal thought process present and cooperative THOUGHT PROCESS: Normal thought process present Skin: COMMON NORMALS: no rashes or lesions noted and no wounds GENERAL SKIN EXAM: no rashes or lesions noted Course Vital Signs: Vital signs: Vital Signs Temperature 98.2 F 07/22/21 22:19 Pulse Rate 123 H 07/22/21 22:19 Respiratory Rate 18 07/23/21 02:01 Blood Pressure 97/65 07/22/21 22:19 Pulse Oximetry 92 07/23/21 02:01 MDM - Abdominal Pain Medical Decision Making Patient presents with increasing abdominal pain along with decreased stool from her ostomy CT scan here showed possible obstruction from her mass I did speak to surgery at [facility] will transfer there due to her extensive history and all her surgeries that she has had there. Lab Data : 07/23/21 01:50 07/23/21 01:50 Labs/Radiology: Radiology Impressions KUB X-Ray 07/22/21 20:57 IMPRESSION: 1. Interval placement of IVC filter. 2. Moderate prominent retained feces in the transverse colon and right colon. COMMENTS: For patients with an IVC filter, recommend assessment for a management plan for the patient's IVC filter. If there is no established management plan, recommend referral to an interventional clinician on a nonemergent basis for evaluation. Abdomen/Pelvis CT 07/23/21 01:21 IMPRESSION: 1. Interval left lower quadrant colostomy. 2. Resection of the mid sigmoid colon with staple line. 3. Probable prominent residual or recurrent 6.9 x 7.7 x 6.0 cm bulky distal sigmoid colon tumor which may be creating obstruction in the dilated rectosigmoid stump proximal to the tumor. 4. Moderate bowel wall thickening in the distal rectum consistent with tumor versus infectious proctitis. COMMENTS: For patients with an IVC filter, recommend assessment for a management plan for the patient's IVC filter. If there is no established management plan, recommend referral to an interventional clinician on a nonemergent basis for evaluation. Laboratory Results WBC 15.5 10^3/uL (4.0-10.0) H 07/23/21 01:50 RBC 4.99 10^6/uL (4.1-5.3) 07/23/21 01:50 Hgb 13.8 g/dL (11.5-15.3) 07/23/21 01:50 Hct 44.9 % (37.0-47.0) 07/23/21 01:50 MCV 90.0 fl (81-99) 07/23/21 01:50 MCH 27.7 pg (28.0-34.0) L 07/23/21 01:50 MCHC 30.7 g/dL (30.0-36.0) 07/23/21 01:50 RDW 13.2 % (12.1-15.1) 07/23/21 01:50 Plt Count 355 10^3/cmm (130-400) 07/23/21 01:50 MPV 8.8 fL (7.4-10.4) 07/23/21 01:50 Neut % (Auto) 84.8 % 07/23/21 01:50 Lymph % (Auto) 8.8 % 07/23/21 01:50 Rice % (Auto) 6.0 % 07/23/21 01:50 Eos % (Auto) 0.0 % 07/23/21 01:50 Baso % (Auto) 0.1 % 07/23/21 01:50 Neut # (Auto) 13.20 10^3/uL (1.8-7.7) H 07/23/21 01:50 Lymph # (Auto) 1.4 10^3/uL (0.8-4.8) 07/23/21 01:50 Rice # (Auto) 0.9 10^3/uL (0.2-0.9) 07/23/21 01:50 Eos # (Auto) 0.0 10^3/uL (0.0-0.8) 07/23/21 01:50 Baso # (Auto) 0.0 10^3/uL (0.0-0.1) 07/23/21 01:50 Nucleated RBC % (auto) 0 % 07/23/21 01:50 Nucleated RBCs # 0.0 /100WBC 07/23/21 01:50 Discharge Plan Discharge Patient Disposition: Xfer Short-Term Hosp Clinical Impression: Colonic mass, Bowel obstruction Condition: Stable Referrals: De,LEATHA Solorio [Primary Care Provider] - Coding Level of Care Code ED Client Solutions Director for Chg Fwd Exam Comprehensive
[2021-07-23 02:00] LABS: Basophils % 0.1 %; Hematocrit 44.9 % (37.0-47.0); Hemoglobin 13.8 g/dL (11.5-15.3); Lymphocytes # 1.4 10^3/uL (0.8-4.8); Lymphocytes % 8.8 %; Mean Corpuscular HGB Conc 30.7 g/dL (30.0-36.0); Mean Corpuscular Hemoglobin 27.7 pg (28.0-34.0); Mean Platelet Volume 8.8 fL (7.4-10.4); Monocytes # 0.9 10^3/uL (0.2-0.9); Neutrophils % 84.8 %; Nucleated Red Blood Cells % 0 %; Platelet Count 355 10^3/cmm (130-400); Red Blood Count 4.99 10^6/uL (4.1-5.3); Red Cell Distribution Width 13.2 % (12.1-15.1); White Blood Count 15.5 10^3/uL (4.0-10.0)
[2021-07-23] MEDS: ondansetron 2 mg/ML SDV 2 mL 4 MG IVP (02:01)
[2021-07-23] MEDS: morphine 4 mg/mL SDV 1 mL IVP (02:01)
[2021-07-23 02:17] LABS: Alanine Aminotransferase 6 U/L (0-33); Albumin Level 3.3 g/dL (3.5-5.2); Alkaline Phosphatase 83 IU/L (35-105); Anion Gap 20.4 (5-19); Aspartate Amino Transferase 10 U/L (0-32); Blood Urea Nitrogen 16 mg/dL (8-23); Calcium 9.6 mg/dL (8.5-10.5); Carbon Dioxide 24 mmol/L (22-29); Chloride 95 mmol/L (98-107); Globulin 4.1 g/dL (1.3-4.6); Glucose 167 mg/dL (65-115); Osmolality Calculated 285 mOsm/kg (285-295); Potassium 4.4 mmol/L (3.5-5.1); Sodium 135 mmol/L (136-145); Total Bilirubin 0.4 mg/dL (0.15-1.2); Total Protein 7.4 g/dL (6.6-8.7)
[2021-07-23] MEDS: piperacillin-tazobactam 3.375 GM in sodium chloride 0.9% (plus) 50 ML IV (02:30)
[2021-07-23] MEDS: sodium chloride 0.9% 1,000 ML 999 ML IV (02:31)
[2021-07-23 03:00] LABS: Lactate (Lactic Acid level) 2.8 mmol/L (0.5-2.2)
--- NOTE | 2021-07-23 07:54 | PC.NURSE ---
called and updated receiving nurse that patient is on the way
== END 2021-07-23 08:05 | disposition short-term general hospital (02) ==
PROVIDERS: Emergency Provider Emergency Medicine; PCP Nurse Practitioner Family
DX: K56.609 Unspecified intestinal obstruction, unspecified as to partial versus complete obstruction (principal); K63.89 Other specified diseases of intestine
CPT/HCPCS: 74018; 74176; 80053; 83605; 85025; 96365; 96375; 99284; J2270; J2405; J2543; J7030

== ENCOUNTER 2021-08-18 08:49 | Oncology outpatient (recurring) (ONCR) | payer MEDICAID, SELFPAY ==
--- NOTE | 2021-08-18 | CT_ITS ---
Radiation Therapy Planning CT images; total exam DLP: 602.47mGy-cm MTDD
== END 2021-09-09 23:59 | disposition home or self-care (01) ==
PROVIDERS: Absent Provider Internal Medicine Hematology & Oncology; PCP Nurse Practitioner Family; Visit Provider Radiology Radiation Oncology
DX: I82.409 Acute embolism and thrombosis of unspecified deep veins of unspecified lower extremity (principal); I26.99 Other pulmonary embolism without acute cor pulmonale; Z95.828 Presence of other vascular implants and grafts; Z79.01 Long term (current) use of anticoagulants
CPT/HCPCS: 77300; 77301; 77338; 99214

== ENCOUNTER 2022-01-15 12:52 | Inpatient (IN) | payer MEDICAID, SELFPAY ==
[2022-01-15] VITALS (14 sets, daily range): BP systolic 84–122; BP diastolic 45–64; PULSE 90–136; RESP 16–28; TEMP 36.3–37.6; O2SAT 89–98; BMI 17.4
--- NOTE | 2022-01-15 13:24 | XRR_ITS ---
PROCEDURE INFORMATION: Exam: XR Chest Exam date and time: 01/15/2022 2:09 PM Age: 71 years old Clinical indication: Fever TECHNIQUE: Imaging protocol: Radiologic exam of the chest. Views: 1 view. COMPARISON: CT angio chest abdomen pelvis 05/20/2021 10:09 PM FINDINGS: Lungs: There is mild peribronchial wall thickening. Minimal bibasilar scarring or atelectasis. Pleural spaces: No pleural effusion. No pneumothorax. Heart/Mediastinum: The cardiac silhouette is approximately unchanged. No gross evidence of pneumomediastinum. Bones/joints: No gross fracture. Soft tissues: Calcified granulomata are again noted in the lower right chest. XR/XR chest 1V portable [id number] IMPRESSION: There is mild peribronchial wall thickening; query viral infection/bronchitis, chronic bronchitis and/or asthma.
--- NOTE | 2022-01-15 13:28 | CTR_ITS ---
PROCEDURE INFORMATION: Exam: CT Head Without Contrast Exam date and time: 01/15/2022 2:05 PM Age: 71 years old Clinical indication: Altered mental status/memory loss TECHNIQUE: Imaging protocol: Computed tomography of the head without contrast. Radiation optimization: All CT scans at this facility use at least one of these dose optimization techniques: automated exposure control; mA and/or kV adjustment per patient size (includes targeted exams where dose is matched to clinical indication); or iterative reconstruction. COMPARISON: CT head wo con* [id number] 05/20/2021 7:06 PM RADIATION DOSE METRICS: Total DLP (mGy-cm): 984.9 FINDINGS: Brain: No acute intracranial hemorrhage. No mass, mass effect or midline shift. There is mild patchy subcortical and periventricular hypodensity, most commonly associated with small vessel ischemic disease of indeterminate age. Small lacunar infarcts within/adjacent to the basal ganglia, bilaterally, that appear new from prior. If clinically concerned for acute lacunar infarct, consider MRI. The posterior fossa is grossly unremarkable; however, it is partially obscurred by beam hardening artifact. Cerebral ventricles: The ventricles are normal in configuration. Paranasal sinuses: The visualized paranasal sinuses are clear. Mastoid air cells: No mastoid effusion. Orbital cavities: The visualized orbits are unremarkable. Bones/joints: No acute fracture is seen. Soft tissues: No significant scalp soft tissue swelling. Vasculature: There is no evidence of acute large vessel infarct. CT/CT head wo con* [id number] IMPRESSION: 1. Small lacunar infarcts within/adjacent to the basal ganglia, bilaterally, that appear new from prior. If clinically concerned for acute lacunar infarct, consider MRI. 2. Mild presumed small vessel ischemic disease of indeterminate age. 3. No acute intracranial hemorrhage.
--- NOTE | 2022-01-15 13:28 | W.ED.AMS ---
HPI - Altered Mental Status General: Chief Complaint: Altered Mental Status Stated Complaint: stroke like symptoms Time Seen by Provider: 01/15/22 13:10 History of Present Illness: 71 female with history of colon cancer who comes in with altered mental status and generalized malaise. Patient had a history of surgical debulking with a subsequent next colostomy and fistula formation. She has had anemia and has had to be transfused in the past. Over the night, she became confused, talking gibberish to her . She is unable to answer any questions. He states she has not eaten or drank much over the past 24 hours. Upon arrival here, she does have a fever but he was not aware she had a fever at home. Review of Systems Const: Reports: fever(s) and fatigue Card: Reports: palpitations and swelling of feet/ankles; Denies: chest pain, irregular heart rhythm, lightheadedness, pre-syncope, dyspnea on exertion, orthopnea or leg pain with exertion Resp: Denies: dyspnea or productive cough GI: Reports: melena and other (patient is on iron - stools are black often) Musc: Denies: neck pain or back pain Neuro: Reports: headache(s), dizziness and confusion Kevyn/Lymph: Reports: easy bruising and easy bleeding PFSH ED PFSH: Medical History (Updated 01/15/22 @ 15:20 by Rola Oviedo MD) Diarrhea Surgical History (Updated 08/18/21 @ 14:01 by Kelton Goins M.D) S/P IVC filter Status post colonoscopy (05/22/21) Family History Father Diabetes Heart disease Mother Stroke Heart disease Denies family history of Colon cancer Ovarian cancer Clotting disorder Hyperlipidemia Breast cancer Anesthesia complication Bleeding disorder Hypertension Uterine cancer Thyroid condition Social History Smoking and tobacco status: former smoker Alcohol intake: never Physical Exam HENMT: OTHER: mucous membranes are dry Eye: OTHER: conjunctiva pale Resp: COMMON NORMALS: normal respiratory effort, No retractions, No use of accessory muscles and clear to auscultation bilaterally AUSCULTATION: clear to auscultation bilaterally Cardio: COMMON NORMALS: S1 normal heart sound present and S2 normal heart sound present HEART SOUNDS: S1 normal heart sound present and S2 normal heart sound present OTHER: tachcyardic GI: COMMON NORMALS: Soft to palpation and No hepatosplenomegaly present PALPATION: Yes Soft to palpation and Yes No hepatosplenomegaly present OTHER: colostomy on mid abdomen; abdomen tender; + mass Extremity: COMMON NORMALS: no pedal edema Skin: OTHER: pale Course ED course: Patient's been evaluated in the emergency department. She presents with altered mental status. She is very pale, tachycardic borderline hypotensive, suspect sepsis. She had an IV placed and labs obtained. She had blood culture sent. She has been given an IV fluid bolus. On laboratory evaluation, she does have a significant leukocytosis with a white blood cell count of 40,000. She is also in acute renal failure with a creatinine of 6.8 and hyperkalemic with a potassium of 6.5. She is very anemic with a hemoglobin of 5.4, requiring transfusion today. Plan for transfusion with 2 units of packed red blood cells. We will cover her with IV Zosyn and vancomycin. She does have tenderness in her lower abdomen with an associated palpable abdominal mass. We will obtain a CT of her chest, abdomen and pelvis due to her sepsis. Have discussed with the patient's , that her condition is very critical. Patient will need admission for IV antibiotics, IV fluids and transfusion. Reevaluation(s): Reevaluation #1: Patient remains confused. She remains tachycardic. Blood pressure remains in the 80s to 90s. Reevaluation #2: Had a long conversation with the patient's in regards to the patient's critical condition. Discussed that she had probable metastatic disease with acute renal failure, severe anemia needing transfusion and is septic. Discussed with the but possibly hospice would be the best option. Consultations: Consultation #1: Discussed with Dr. Burton, the hospitalist who agrees with admission Consultation #2: Discussed with the general surgeon for possible dialysis catheter placement Vital Signs: Vital signs: Vital Signs Temperature 98.5 F 01/15/22 15:54 Pulse Rate 111 H 01/15/22 15:54 Respiratory Rate 20 H 01/15/22 15:54 Blood Pressure 103/52 01/15/22 15:54 Pulse Oximetry 98 01/15/22 15:54 Oxygen Delivery Me thod 01/15/22 13:00 MDM - Altered Mental Status Medical Decision Making 71-year-old female with a history of colon cancer, comes in with altered mental status. The patient is very pale, borderline low blood pressures, tachycardic. I suspect that she is anemic. She does have a fever so we will do a septic work-up on her. Differential Diagnosis Likely altered mental status (fever, UTI, pneumonia, COVID, influenza, anemia, GI bleed, ICB), delirium and sepsis Medical Records Per old charts, the patient's most recent labs show normal creatinine. Lab Data : 01/15/22 13:53 01/15/22 13:53 Radiology Impressions Chest X-Ray 01/15/22 13:24 IMPRESSION: There is mild peribronchial wall thickening; query viral infection/bronchitis, chronic bronchitis and/or asthma. Head CT 01/15/22 13:28 IMPRESSION: 1. Small lacunar infarcts within/adjacent to the basal ganglia, bilaterally, that appear new from prior. If clinically concerned for acute lacunar infarct, consider MRI. 2. Mild presumed small vessel ischemic disease of indeterminate age. 3. No acute intracranial hemorrhage. Chest/Abdomen/Pelvis CT 01/15/22 14:39 IMPRESSION: 1. Comparison chest CT 05/20/2021. Interval development of multiple noncalcified pulmonary nodules suspicious for metastatic lesions, measuring up to 9 mm in the anterior right upper lobe as described above. 2. Some interval improvement of previously noted clustered tree-in-bud peripheral nodular opacities suggesting improvement of nonspecific bronchiolitis. No acute lung consolidation or ground-glass opacity. 3. Coronary calcification and hiatal hernia. IMPRESSION: 1. Comparison CT 07/23/2021 and 05/20/2021. History of colorectal cancer was provided on prior report. Exam is limited due to artifacts and lack of contrast. 2. Presumed prior segmental colonic resection with left periumbilical ostomy with no obvious regional acute complications. 3. Significant interval increase of ill-defined heterogeneous pelvic soft tissue mass, likely rectal-distal sigmoid/perirectal in origin. The anterior margin probably demonstrates invasion through the midline inferior abdominal wall as described. It probably displaces the uterus to the right and causes bilateral distal ureteral obstruction. Interval development of bilateral mild-moderate hydronephrosis and hydroureter. 4. Distal rectal wall thickening which could be related to neoplastic process however superimposed inflammatory/infectious process can not be excluded. No obvious drainable abscess. 5. Uterus is poorly outlined however it is probably deviated/displaced toward the right side with markedly distended endometrial cavity suggesting probable obstruction or tumor involvement at the cervix level. Additional imaging by contrast-enhanced CT or ultrasound may be obtained if clinically indicated. 6. Otherwise no free air or obvious bowel obstruction or pneumatosis. COMMENTS: For patients with an IVC filter, recommend assessment for a management plan for the patient's IVC filter. If there is no established management plan, recommend referral to an interventional clinician on a nonemergent basis for evaluation. Laboratory Results WBC 40.1 10^3/uL (4.0-10.0) H* 01/15/22 13:53 RBC 2.09 10^6/uL (4.1-5.3) L 01/15/22 13:53 Hgb 5.4 g/dL (11.5-15.3) L* 01/15/22 13:53 Hct 18.7 % (37.0-47.0) L* 01/15/22 13:53 MCV 89.5 fl (81-99) 01/15/22 13:53 MCH 25.8 pg (28.0-34.0) L 01/15/22 13:53 MCHC 28.9 g/dL (30.0-36.0) L 01/15/22 13:53 RDW 18.6 % (12.1-15.1) H 01/15/22 13:53 Plt Count 361 10^3/cmm (130-400) 01/15/22 13:53 MPV 9.1 fL (7.4-10.4) 01/15/22 13:53 Neut % (Auto) 94.2 % 01/15/22 13:53 Lymph % (Auto) 0.8 % 01/15/22 13:53 Claiborne % (Auto) 1.7 % 01/15/22 13:53 Eos % (Auto) 0.0 % 01/15/22 13:53 Baso % (Auto) 0.2 % 01/15/22 13:53 Neut # (Auto) 37.83 10^3/uL (1.8-7.7) H 01/15/22 13:53 Lymph # (Auto) 0.3 10^3/uL (0.8-4.8) L 01/15/22 13:53 Cla[place]orne # (Auto) 0.7 10^3/uL (0.2-0.9) 01/15/22 13:53 Eos # (Auto) 0.0 10^3/uL (0.0-0.8) 01/15/22 13:53 Baso # (Auto) 0.1 10^3/uL (0.0-0.1) 01/15/22 13:53 Nucleated RBC % (auto) 0 % 01/15/22 13:53 Nucleated RBCs # 0.0 /100WBC 01/15/22 13:53 PT 16.10 SECONDS (12.1-14.9) H 01/15/22 13:53 INR 1.26 (0.8-1.2) H 01/15/22 13:53 APTT 39.7 SECONDS (23.9-36.7) H 01/15/22 13:53 Sodium 132 mmol/L (136-145) L 01/15/22 13:53 Potassium 6.5 mmol/L (3.5-5.1) H* 01/15/22 13:53 Chloride 96 mmol/L (98-107) L 01/15/22 13:53 Carbon Dioxide 14 mmol/L (22-29) L 01/15/22 13:53 Anion Gap 28.5 (5-19) H 01/15/22 13:53 BUN 70 mg/dL (8-23) H 01/15/22 13:53 Creatinine 6.8 mg/dL (0.5-0.9) H* 01/15/22 13:53 GFR Calculation Not Reportable 01/15/22 13:53 Glucose 116 mg/dL (65-115) H 01/15/22 13:53 Calculated Osmolality 295 mOsm/kg (285-295) 01/15/22 13:53 Lactic Acid 5.8 mmol/L (0.5-2.2) H* 01/15/22 13:53 Calcium 8.3 mg/dL (8.5-10.5) L 01/15/22 13:53 Total Bilirubin 0.2 mg/dL (0.15-1.2) 01/15/22 13:53 AST 14 U/L (0-32) 01/15/22 13:53 ALT < 5 U/L (0-33) 01/15/22 13:53 Alkaline Phosphatase 88 U/L (35-105) 01/15/22 13:53 Total Protein 5.8 g/dL (6.6-8.7) L 01/15/22 13:53 Albumin 2.2 g/dL (3.5-5.2) L 01/15/22 13:53 Globulin 3.6 g/dL (1.3-4.6) 01/15/22 13:53 Nasal Influ A H1 2009 PCR Not detected (NOT DETECT) 01/15/22 14:40 Coronavirus 229E (PCR) Not detected (NOT DETECT) 01/15/22 14:40 Influenza A (H1) PCR Not detected (NOT DETECT) 01/15/22 14:40 Influenza A (H3) PCR Not detected (NOT DETECT) 01/15/22 14:40 Influenza Type A (PCR) Not detected (NOT DETECT) 01/15/22 14:40 Influenza Type B (PCR) Not detected (NOT DETECT) 01/15/22 14:40 SARS-CoV-2 (PCR) Not detected (NOT DETECT) 01/15/22 14:40 Blood Type A Positive 01/15/22 13:53 Rho(D) Type Positive 01/15/22 13:53 Antibody Screen Negative 01/15/22 13:53 Crossmatch See Detail 01/15/22 13:[address] Abd/Pel: Radiologist's impression: Increase size of the cancer in the lower abdomen CT Chest: Radiologist's impression: No pulmonary emboli, multiple nodules consistent with metastatic disease EKG Data EKG 1: EKG interpretation date: 01/15/22 EKG interpretation time: 14:24 Interpretation: sinus tachycardia; no ST or T wave changes Critical Care Time Critical Care Time: Critical Care Time: Yes Total Critical Care Time: 60 Attestation: total time involved includes evaluation of the patient coming obtaining history from her family, evaluation of tests and results, ordering new studies, treatment of her hemodynamic instability, review of old charts, discussion with consultants and admission hospitalist Discharge Plan Discharge Clinical Impression: Sepsis, Colonic mass, Acute renal failure, Acute hyperkalemia, Anemia, Leukocytosis, Altered mental status Condition: Stable Prescriptions: No Action Eliquis 5 mg tablet 5 mg PO BID docusate sodium [Colace] 100 mg capsule 100 mg PO BID PRN (Reason: Constipation) ferrous sulfate [Iron (ferrous sulfate)] 325 mg (65 mg iron) Tablet 325 mg PO BID lorazepam 1 mg Tablet See Rx Instructions .ROUTE .COMPLEX PRN (Reason: Anxiety) Rx Instructions: TAKE 1/2 TO 1 TAB BID NEEDED FOR 30 DAYS potassium 99 mg Tablet 198 mg PO BID Referrals: De,LEATHA Solorio [Primary Care Provider] - Coding Level of Care Code ED Director Funeral for Chg Fwd Exam Expanded Problem Focused Medical Decision Making High Complexity Time Spent (min) 120
--- NOTE | 2022-01-15 13:36 | ECG_ITS ---
[facility] Test Date: 2022-01-15 Pat Name: Teresa Jha Department: Room: Gender: Female [employer] Supervisor: : [id number] Requested By: Rola Oviedo Order Number: [id number] Peck MD: Gretel Kunz M.D. Measurements Intervals [facility] Rate: 131 P: 70 IA: 150 QRS: 18 QRSD: 72 T: 92 QT: 333 QTc: 493 Interpretive Statements SINUS TACHYCARDIA NONSPECIFIC ST & T-WAVE ABNORMALITY Compared to ECG 05/21/2021 00:25:13 T-wave abnormality now present Sinus rhythm no longer present ST (T wave) deviation no longer present Electronically Signed On 01-15-2022 15:26:17 CDT by Gretel Kunz M.D. [email or web address]
[2022-01-15] MEDS: sodium chloride 0.9% 1,000 ML 999 ML IV (14:09)
[2022-01-15 14:21] LABS: Basophils # 0.1 10^3/uL (0.0-0.1); Basophils % 0.2 %; Lymphocytes # 0.3 10^3/uL (0.8-4.8); Lymphocytes % 0.8 %; Mean Corpuscular HGB Conc 28.9 g/dL (30.0-36.0); Mean Corpuscular Hemoglobin 25.8 pg (28.0-34.0); Mean Corpuscular Volume 89.5 fl (81-99); Mean Platelet Volume 9.1 fL (7.4-10.4); Monocytes # 0.7 10^3/uL (0.2-0.9); Monocytes % 1.7 %; Neutrophils # 37.83 10^3/uL (1.8-7.7); Neutrophils % 94.2 %; Nucleated Red Blood Cells % 0 %; Platelet Count 361 10^3/cmm (130-400); Red Blood Count 2.09 10^6/uL (4.1-5.3); Red Cell Distribution Width 18.6 % (12.1-15.1)
[2022-01-15 14:33] LABS: Hematocrit 18.7 % (37.0-47.0); Hemoglobin 5.4 g/dL (11.5-15.3); White Blood Count 40.1 10^3/uL (4.0-10.0)
[2022-01-15 14:38] LABS: Alanine Aminotransferase < 5 U/L (0-33); Albumin Level 2.2 g/dL (3.5-5.2); Alkaline Phosphatase 88 U/L (35-105); Blood Urea Nitrogen 70 mg/dL (8-23); Calcium 8.3 mg/dL (8.5-10.5); Carbon Dioxide 14 mmol/L (22-29); Chloride 96 mmol/L (98-107); Globulin 3.6 g/dL (1.3-4.6); Glucose 116 mg/dL (65-115); Osmolality Calculated 295 mOsm/kg (285-295); Sodium 132 mmol/L (136-145); Total Bilirubin 0.2 mg/dL (0.15-1.2); Total Protein 5.8 g/dL (6.6-8.7)
--- NOTE | 2022-01-15 14:39 | CTR_ITS ---
PROCEDURE INFORMATION: Exam: CT Chest Without Contrast; Diagnostic Exam date and time: 01/15/2022 3:13 PM Age: 71 years old Clinical indication: Abnormal findings; Abnormal lab test; Elevated wbc; Other: AMS, SOB; Prior surgery; Surgery type: Colon; Additional info: Sepsis TECHNIQUE: Imaging protocol: Diagnostic computed tomography of the chest without contrast. Radiation optimization: All CT scans at this facility use at least one of these dose optimization techniques: automated exposure control; mA and/or kV adjustment per patient size (includes targeted exams where dose is matched to clinical indication); or iterative reconstruction. COMPARISON: CT angio chest abdomen pelvis 05/20/2021 10:09 PM RADIATION DOSE METRICS: Total DLP (mGy-cm): 437.63 FINDINGS: Lungs: Lung assessment is slightly limited due to artifacts. Previously noted ill-defined patchy opacity and clustered tree-in-bud peripheral nodular opacities demonstrates some interval improvement suggesting nonspecific bronchiolitis. No new acute consolidation or ground-glass opacity. A few calcified pulmonary granulomas are noted in the anterior right lung base. Scattered areas of linear scarring-atelectasis is also noted. Probable small area of traction bronchiectasis in the lingular region, unchanged. There is an anterior inferior right upper lobe noncalcified nodular density, measuring about 9 mm, series 3, image 25, new since previous exam. An anterior right middle lobe nodular density is also noted measuring 3 mm, image 28, probably new since prior exam. Tiny nodular density right lung base measuring about 2 mm, image 34. Pleural spaces: Unremarkable. No pneumothorax. No pleural effusion. Heart: No cardiomegaly. No pericardial effusion. Coronary calcification. Lymph nodes: No enlarged lymph nodes. Vasculature: Unremarkable. No aortic aneurysm. Diaphragm: Hiatal hernia measuring about 3.9 cm. Bones/joints: No acute findings. Soft tissues: Images are somewhat degraded due to external streak artifacts arising from patient's arm(s). PROCEDURE INFORMATION: Exam: CT Abdomen And Pelvis Without Contrast Exam date and time: 01/15/2022 3:13 PM Age: 71 years old Clinical indication: Abnormal findings; Abnormal lab test; Elevated wbc; Other: AMS, SOB; Prior surgery; Surgery type: Colon; Additional info: Sepsis TECHNIQUE: Imaging protocol: Computed tomography of the abdomen and pelvis without contrast. Radiation optimization: All CT scans at this facility use at least one of these dose optimization techniques: automated exposure control; mA and/or kV adjustment per patient size (includes targeted exams where dose is matched to clinical indication); or iterative reconstruction. COMPARISON: 1. CT kidney stone [id number] 07/23/2021 1:[address] angio chest abdomen pelvis 05/20/2021 10:09 PM RADIATION DOSE METRICS: Total DLP (mGy-cm): 437.63 FINDINGS: Diaphragm: Hiatal hernia measuring about 3.9 cm. Liver: Normal liver size without cirrhosis. Well-defined hypodense lesions throughout the liver, measuring up to 3.1 cm, unchanged, likely hepatic cysts. Gallbladder and bile ducts: Normal. No calcified stones. No ductal dilation. Pancreas: Normal. No ductal dilation. Spleen: Normal. No splenomegaly. Adrenal glands: Stable smooth thickening of the left adrenal gland with no large mass. Kidneys and ureters: Interval development of [id number] bilateral hydronephrosis and diffuse hydroureter. Stomach and bowel: Again seen is ill-defined soft tissue fullness in the midline/posterior pelvic region suspicious for interval enlargement of rectal or perirectal malignancy, now measuring about 12.3 x 7.9 cm versus 7.5 x 5.4 cm previously. Findings suggestive of probable anterior fistula is noted in the mid rectal region on the prior CT exam. The most anterior extent of this process appears to extend through the lower midline anterior abdominal wall, series 9, image 91 and may reach the skin surface, sagittal series 11, image 35. Clinical correlation is needed. No pneumatosis or small bowel/colonic obstruction. Low stool burden. Heterogeneous thickening of the rectum suspicious for neoplasm and/or superimposed proctitis. Clinical correlation is needed. Appendix: No evidence of appendicitis. Intraperitoneal space: Unremarkable. No free air. No significant fluid collection. Vasculature: IVC filter with the tip near the renal vein origin. Lymph nodes: Increased number of slightly prominent bilateral lymph nodes. The largest is on the left measuring about 13 mm short axis , similar in size but has undergone some calcification which may be related to partial response to treatment. Urinary bladder: Unremarkable as visualized. Urinary bladder: Unremarkable as visualized. Reproductive: See Soft tissues finding. Bones/joints: No acute fracture. Soft tissues: Images are somewhat degraded due to external streak artifacts arising from patient's arm(s). Motion artifacts are also present. Again seen is a left periumbilical ostomy with no obvious regional ostomy acute complication. Previous CT report describes history of sigmoid colon resection The right lower quadrant ostomy is also noted. Mild diffuse presacral and perirectal soft tissue edema with no obvious drainable fluid collection. There is a bulky heterogeneous soft tissue mass with ill-defined margin, measuring about 15 cm in length, versus 7.5 cm previously. There is prominent central hypodensity measuring up to 3.4 cm suggesting necrosis. The mass demonstrates somewhat uterine configuration on the midline sagittal image however there is also a suggestion of displaced uterine structure toward the right side as best seen on coronal series 10, image 18. This presumed displaced uterine structure demonstrates markedly distended hypodense endometrial cavity measuring up to 4.4 cm.. Periuterine soft tissue stranding is also noted. Urinary bladder is partially compressed and extrinsically displaced by the enlarged uterus and abnormal soft tissue posterior to it. Diffuse subcutaneous soft tissue haziness is noted in the mons pubis/suprapubic region which may be related to regional inflammatory response versus anasarca versus radiation changes. CT/[place] [id number] IMPRESSION: 1. Comparison chest CT 05/20/2021. Interval development of multiple noncalcified pulmonary nodules suspicious for metastatic lesions, measuring up to 9 mm in the anterior right upper lobe as described above. 2. Some interval improvement of previously noted clustered tree-in-bud peripheral nodular opacities suggesting improvement of nonspecific bronchiolitis. No acute lung consolidation or ground-glass opacity. 3. Coronary calcification and hiatal hernia. IMPRESSION: 1. Comparison CT 07/23/2021 and 05/20/2021. History of colorectal cancer was provided on prior report. Exam is limited due to artifacts and lack of contrast. 2. Presumed prior segmental colonic resection with left periumbilical ostomy with no obvious regional acute complications. 3. Significant interval increase of ill-defined heterogeneous pelvic soft tissue mass, likely rectal-distal sigmoid/perirectal in origin. The anterior margin probably demonstrates invasion through the midline inferior abdominal wall as described. It probably displaces the uterus to the right and causes bilateral distal ureteral obstruction. Interval development of bilateral mild-moderate hydronephrosis and hydroureter. 4. Distal rectal wall thickening which could be related to neoplastic process however superimposed inflammatory/infectious process can not be excluded. No obvious drainable abscess. 5. Uterus is poorly outlined however it is probably deviated/displaced toward the right side with markedly distended endometrial cavity suggesting probable obstruction or tumor involvement at the cervix level. Additional imaging by contrast-enhanced CT or ultrasound may be obtained if clinically indicated. 6. Otherwise no free air or obvious bowel obstruction or pneumatosis. COMMENTS: For patients with an IVC filter, recommend assessment for a management plan for the patient's IVC filter. If there is no established management plan, recommend referral to an interventional clinician on a nonemergent basis for evaluation.
[2022-01-15 14:50] LABS: Anion Gap 28.5 (5-19)
[2022-01-15 14:51] LABS: Aspartate Amino Transferase 14 U/L (0-32)
[2022-01-15 14:53] LABS: Lactic Sepsis W/Reflex 5.8 mmol/L (0.5-2.2); Potassium 6.5 mmol/L (3.5-5.1)
[2022-01-15 14:57] LABS: Reflex Lactate Order REFLEX LACTIC ORDERD
[2022-01-15 15:02] LABS: INR 1.26 (0.8-1.2)
[2022-01-15 15:03] LABS: Partial Thromboplastin Time 39.7 SECONDS (23.9-36.7)
[2022-01-15] MEDS: vancomycin 1,000 MG in sodium chloride 0.9% 250 ML 250 MG IV (15:43)
--- NOTE | 2022-01-15 16:30 | PC.NURSE ---
DR. HALL INSTRUCTED NOT TO START A NEW IV DUE TO PT CONDITION AND PLACEMENT ON HOSPICE CARE.
[2022-01-15 16:48] LABS: Adenovirus Not Detected (NOT DETECT); Chlamydia Pneumoniae Not Detected (NOT DETECT); Coronavirus 229E,HKU1,NL63,OC4 Not Detected (NOT DETECT); Human Metapneumovirus Not Detected (NOT DETECT); Human Rhinovirus/Enterovirus Not Detected (NOT DETECT); Influenza A Not Detected (NOT DETECT); Influenza A H1 Not Detected (NOT DETECT); Influenza A H1-2009 Not Detected (NOT DETECT); Influenza A H3 Not Detected (NOT DETECT); Influenza B Not Detected (NOT DETECT); Mycoplasma Pneumoniae Not Detected (NOT DETECT); Parainfluenza Virus Type 1 Not Detected (NOT DETECT); Parainfluenza Virus Type 2 Not Detected (NOT DETECT); Parainfluenza Virus Type 3 Not Detected (NOT DETECT); Parainfluenza Virus Type 4 Not Detected (NOT DETECT); Respiratory Syncytial Virus A Not Detected (NOT DETECT); Respiratory Syncytial Virus B Not Detected (NOT DETECT); SARS-COV-2 Not Detected (NOT DETECT)
--- NOTE | 2022-01-15 16:57 | P.HP_ITS ---
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 As per the patient knows she has cancer for which she decided only to have the surgery but not to have any further treatments. She has been feeling sick, getting weaker over the last few weeks, getting more and more altered for which he has been trying for her to see a physician but she continued to refuse. Today she became extremely noncognitive sent so he brought her to the ER. As per the patient has a history of recurrent episodes of anemia with multiple blood transfusion. He states there is always blood leaking through the fistula. He has not noticed her to have any fevers. ER course: On presentation to the ER patient was found to be hypotensive for which she required sepsis bolus of fluid after which her blood pressures improved. She was ordered 2 units of blood transfusion and the first unit was ongoing on my examination. She received a dose of vancomycin and Zosyn. Blood work was done which came back to be white count of 40,000, hemoglobin of 5.4, INR 1.26, chemistry showing sodium of 132, potassium of 6.5, anion gap of 29, BUN of 70, creatinine of 6.8, lactate of 5.[address] chest abdomen pelvis as below. Review of Systems General: Reports: ROS unobtainable due to medical condition Medications/Allergies Home Medications Medication Instructions Recorded Confirmed Last Taken Type apixaban 5 mg tablet (Eliquis) 5 mg PO BID 07/09/21 01/15/22 01/13/22 History docusate sodium 100 mg capsule 100 mg PO BID PRN Constipation 07/09/21 01/15/22 Unknown History (Colace) ferrous sulfate 325 mg (65 mg 325 mg PO BID 07/23/21 01/15/22 01/13/22 History iron) tablet (Iron (ferrous sulfate)) lorazepam 1 mg tablet See Rx Instructions .Route 07/23/21 01/15/22 Unknown History .COMPLEX PRN Anxiety potassium 99 mg tablet 198 mg PO BID 01/15/22 01/15/22 01/13/22 History Allergies Allergy/AdvReac Type Severity Reaction Status Date / Time No Known Allergies Allergy Verified 08/18/21 13:03 PFSH Acute PFSH: Medical History (Updated 01/15/22 @ 17:14 by Kurt Scanlon MD) Anemia Colonic mass Diarrhea DVT (deep venous thrombosis) Pulmonary embolism Rectal mass Ulcerative rectosigmoiditis with fistula Surgical History (Updated 01/15/22 @ 17:00 by Kurt Scanlon MD) History of creation of ostomy x2 S/P IVC filter Status post colonoscopy (05/22/21) Family History Father Diabetes Heart disease Mother Stroke Heart disease Denies family history of Colon cancer Ovarian cancer Clotting disorder Hyperlipidemia Breast cancer Anesthesia complication Bleeding disorder Hypertension Uterine cancer Thyroid condition Social History (Updated 01/15/22 @ 17:05 by Kurt Scanlon MD) Smoking and tobacco status: former smoker Alcohol intake: never Substance/Drug Use: unknown Caregiver/support person: Yes Household members: spouse Housing: House Vitals/I&O/Wt Last Vital Signs Temp 98.5 F 01/15/22 15:54 Pulse 111 H 01/15/22 15:54 Resp 20 H 01/15/22 15:54 BP 103/52 01/15/22 15:54 Pulse Ox 98 01/15/22 15:54 O2 Del Method 01/15/22 13:00 01/15/22 01/15/22 01/15/22 06:59 14:59 22:59 Intake Total 0 / 0 Balance 0 / 0 Weight last 48 hrs Weight 40.37 kg Physical Exam Narrative: General: Chronically sick appearing, AO x1, moaning in bed, pallor present,, laying in bed in position HEENT: PERRLA, pupils bilaterally equal and reactive Chest: Normal vesicular breath sounds, no added sounds, equal good air entry bilaterally CVS: S1-S2 regular, no murmurs, no tachycardia, no gallops, no rubs Abdomen: Soft, nontender, no organomegaly, bowel sounds present, fistula and col ostomy in place. Neuro: No focal deficits, no facial deformity, moving all limbs Data : 01/15/22 13:53 01/15/22 13:53 Other Labs: Radiology Impressions Chest X-Ray 01/15/22 13:24 IMPRESSION: There is mild peribronchial wall thickening; query viral infection/bronchitis, chronic bronchitis and/or asthma. Head CT 01/15/22 13:28 IMPRESSION: 1. Small lacunar infarcts within/adjacent to the basal ganglia, bilaterally, that appear new from prior. If clinically concerned for acute lacunar infarct, consider MRI. 2. Mild presumed small vessel ischemic disease of indeterminate age. 3. No acute intracranial hemorrhage. Chest/Abdomen/Pelvis CT 01/15/22 14:39 IMPRESSION: 1. Comparison chest CT 05/20/2021. Interval development of multiple noncalcified pulmonary nodules suspicious for metastatic lesions, measuring up to 9 mm in the anterior right upper lobe as described above. 2. Some interval improvement of previously noted clustered tree-in-bud peripheral nodular opacities suggesting improvement of nonspecific bronchiolitis. No acute lung consolidation or ground-glass opacity. 3. Coronary calcification and hiatal hernia. IMPRESSION: 1. Comparison CT 07/23/2021 and 05/20/2021. History of colorectal cancer was provided on prior report. Exam is limited due to artifacts and lack of contrast. 2. Presumed prior segmental colonic resection with left periumbilical ostomy with no obvious regional acute complications. 3. Significant interval increase of ill-defined heterogeneous pelvic soft tissue mass, likely rectal-distal sigmoid/perirectal in origin. The anterior margin probably demonstrates invasion through the midline inferior abdominal wall as described. It probably displaces the uterus to the right and causes bilateral distal ureteral obstruction. Interval development of bilateral mild-moderate hydronephrosis and hydroureter. 4. Distal rectal wall thickening which could be related to neoplastic process however superimposed inflammatory/infectious process can not be excluded. No obvious drainable abscess. 5. Uterus is poorly outlined however it is probably deviated/displaced toward t he right side with markedly distended endometrial cavity suggesting probable obstruction or tumor involvement at the cervix level. Additional imaging by contrast-enhanced CT or ultrasound may be obtained if clinically indicated. 6. Otherwise no free air or obvious bowel obstruction or pneumatosis. COMMENTS: For patients with an IVC filter, recommend assessment for a management plan for the patient's IVC filter. If there is no established management plan, recommend referral to an interventional clinician on a nonemergent basis for evaluation. Laboratory Results WBC 40.1 10^3/uL (4.0-10.0) H* 01/15/22 13:53 RBC 2.09 10^6/uL (4.1-5.3) L 01/15/22 13:53 Hgb 5.4 g/dL (11.5-15.3) L* 01/15/22 13:53 Hct 18.7 % (37.0-47.0) L* 01/15/22 13:53 MCV 89.5 fl (81-99) 01/15/22 13:53 MCH 25.8 pg (28.0-34.0) L 01/15/22 13:53 MCHC 28.9 g/dL (30.0-36.0) L 01/15/22 13:53 RDW 18.6 % (12.1-15.1) H 01/15/22 13:53 Plt Count 361 10^3/cmm (130-400) 01/15/22 13:53 MPV 9.1 fL (7.4-10.4) 01/15/22 13:53 Neut % (Auto) 94.2 % 01/15/22 13:53 Lymph % (Auto) 0.8 % 01/15/22 13:53 [place] % (Auto) 1.7 % 01/15/22 13:53 Eos % (Auto) 0.0 % 01/15/22 13:53 Baso % (Auto) 0.2 % 01/15/22 13:53 Neut # (Auto) 37.83 10^3/uL (1.8-7.7) H 01/15/22 13:53 Lymph # (Auto) 0.3 10^3/uL (0.8-4.8) L 01/15/22 13:53 [place] # (Auto) 0.7 10^3/uL (0.2-0.9) 01/15/22 13:53 Eos # (Auto) 0.0 10^3/uL (0.0-0.8) 01/15/22 13:53 Baso # (Auto) 0.1 10^3/uL (0.0-0.1) 01/15/22 13:53 Nucleated RBC % (auto) 0 % 01/15/22 13:53 Nucleated RBCs # 0.0 /100WBC 01/15/22 13:53 PT 16.10 SECONDS (12.1-14.9) H 01/15/22 13:53 INR 1.26 (0.8-1.2) H 01/15/22 13:53 APTT 39.7 SECONDS (23.9-36.7) H 01/15/22 13:53 Sodium 132 mmol/L (136-145) L 01/15/22 13:53 Potassium 6.5 mmol/L (3.5-5.1) H* 01/15/22 13:53 Chloride 96 mmol/L (98-107) L 01/15/22 13:53 Carbon Dioxide 14 mmol/L (22-29) L 01/15/22 13:53 Anion Gap 28.5 (5-19) H 01/15/22 13:53 BUN 70 mg/dL (8-23) H 01/15/22 13:53 Creatinine 6.8 mg/dL (0.5-0.9) H* 01/15/22 13:53 GFR Calculation Not Reportable 01/15/22 13:53 Glucose 116 mg/dL (65-115) H 01/15/22 13:53 Calculated Osmolality 295 mOsm/kg (285-295) 01/15/22 13:53 Lactic Acid 5.8 mmol/L (0.5-2.2) H* 01/15/22 13:53 Calcium 8.3 mg/dL (8.5-10.5) L 01/15/22 13:53 Total Bilirubin 0.2 mg/dL (0.15-1.2) 01/15/22 13:53 AST 14 U/L (0-32) 01/15/22 13:53 ALT < 5 U/L (0-33) 01/15/22 13:53 Alkaline Phosphatase 88 U/L (35-105) 01/15/22 13:53 Total Protein 5.8 g/dL (6.6-8.7) L 01/15/22 13:53 Albumin 2.2 g/dL (3.5-5.2) L 01/15/22 13:53 Globulin 3.6 g/dL (1.3-4.6) 01/15/22 13:53 Nasal Influ A H1 2009 PCR Not detected (NOT DETECT) 01/15/22 14:40 Coronavirus 229E (PCR) Not detected (NOT DETECT) 01/15/22 14:40 Influenza A (H1) PCR Not detected (NOT DETECT) 01/15/22 14:40 Influenza A (H3) PCR Not detected (NOT DETECT) 01/15/22 14:40 Influenza Type A (PCR) Not detected (NOT DETECT) 01/15/22 14:40 Influenza Type B (PCR) Not detected (NOT DETECT) 01/15/22 14:40 SARS-CoV-2 (PCR) Not detected (NOT DETECT) 01/15/22 14:40 Blood Type A Positive 01/15/22 13:53 Rho(D) Type Positive 01/15/22 13:53 Antibody Screen Negative 01/15/22 13:53 Crossmatch See Detail 01/15/22 13:53 Micro: Microbiology 01/15/22 14:33 Blood Culture - Preliminary Blood SPECIMEN COLLECTED 01/15/22 13:53 Blood Culture - Preliminary Blood SPECIMEN COLLECTED A&P Assessment and plan (1) Sepsis: (2) Acute renal failure: (3) Acute hyperkalemia: (4) Anemia: (5) Ulcerative rectosigmoiditis with fistula: (6) History of creation of ostomy: (7) Rectal mass: (8) Colonic mass: (9) Pulmonary embolism: (10) DVT (deep venous thrombosis): (11) S/P IVC filter: (12) Multiple lacunar infarcts: (13) Protein calorie malnutrition: (14) Muscular deconditioning: Plan 71-year-old female with significant surgical and oncological history post debulking surgery, ostomy creation with rectosigmoid fistula to open presented to the ER in altered condition with a history of severe protein energy malnutrition in past found to have anemia, leukocytosis, acute renal failure with hyperkalemia. Goals of care discussion done with at bedside. As per the patient had opted against any kind of medical treatment in the past for the malignancy and all she wanted to do was be comfortable and . We discussed currently she is extremely sick and to treat her she would need multiple days of IV antibiotics, possible pressors, need of dialysis with ascites and a dialysis catheter in place. We also discussed even after all of this it is quite possible that she would not improve given her underlying severe deconditioning and malignancy. stated all he wants just to make sure that the patient remains c omfortable and would not want to do anything beyond that. We discussed the option of hospice. wants to go ahead with hospice possibly at home. We also discussed hospice would mean that if and when her heart stops or she is not able to breathe on her own we will not do any aggressive treatment like chest compressions or mechanical ventilation and our goals will be to make her comfortable and nature takes its own course which would eventually mean that she would . verbalized understanding and is agreeable. Admit to MedSurg. Morphine, Ativan as needed. Finish 2 unit of blood transfusion which were already ordered and going on in the ER. Attestations Medical Necessity Statement*: Admission for more than 2 midnights while hospice is arranged for outpatient with severe physical deconditioning, extensive colon cancer with malignancy, anemia and acute renal failure as patient is in need of IV pain medications Critical Care Time: The high probability of a clinically significant, sudden or life threatening deterioration of the patient's [renal, hematological, GI, ID, goals of care discussion] system(s) required my full and direct attention, intervention and personal management. The critical care time is as shown. This time is in addition to time spent performing any reported procedures but includes the following: [x] Data and vital sign review and interpretation [x] Patient assessment, examination and intervention [x] Documentation [x] Medication orders and management 90 Coding Level of Care Code Acute Light Bulb Replacer for [facility] Fwd Diagnoses Sepsis A41.9 Acute renal failure N17.9 Acute hyperkalemia E87.5 Anemia D64.9 Ulcerative rectosigmoiditis with fistula K51.313 History of creation of ostomy Z93.9 Rectal mass K62.89 Colonic mass K63.89 Pulmonary embolism I26.99 DVT (deep venous thrombosis) I82.409 S/P IVC filter Z95.828 Multiple lacunar infarcts I63.81 Protein calorie malnutrition E46 Muscular deconditioning R29.898
[2022-01-15 17:49] LABS: Results from Genmark
[2022-01-15] MEDS: LORazepam 2 mg/mL INJ 1 mL IVP (17:54)
[2022-01-15] MEDS: morphine 4 mg/mL SDV 1 mL 2 MG IVP ×3 (17:56→23:28)
--- NOTE | 2022-01-15 18:39 | PC.NURSE ---
REPORT CALLED TO JANNIE MADDEN IN MED SURG.
[2022-01-15] MEDS: sodium chloride 0.9% (100 ml) 100 ML 20 ML (19:34)
[2022-01-15] MEDS: glycopyrrolate 0.2 mg/mL SDV 2 mL IV (23:29)
[2022-01-16] VITALS: BP 97/58; PULSE 146; RESP 16; TEMP 39.3; O2SAT 97
[2022-01-16] MEDS: acetaminophen 1,000 MG/100 ML PIGGYBACK 400 MG IV (00:45)
[2022-01-16 04:00] VITALS: BP 84/44; PULSE 125; RESP 18; TEMP 36.9; O2SAT 98
[2022-01-16 07:41] VITALS: BP 90/56; PULSE 118; RESP 18; TEMP 36.9; O2SAT 99
[2022-01-16] MEDS: diphenhydrAMINE 50 mg/mL SDV 1mL 25 MG IVP ×2 (12:44→19:37)
--- NOTE | 2022-01-16 13:08 | PM.PN ---
Subjective Subjective: Family at bedside. Patient seems comfortable. Family at bedside had multiple questions regarding further goals of care, further plan of care and possibility of time of . All the questions were answered. Vitals/I&O/Wt Last Vital Signs Temp 98.5 F 01/16/22 07:41 Pulse 118 H 01/16/22 07:41 Resp 18 01/16/22 07:41 BP 90/56 01/16/22 07:41 Pulse Ox 99 01/16/22 07:41 O2 Del Method 01/16/22 07:41 01/15/22 01/16/22 01/16/22 23:59 06:59 14:59 Intake Total 0 / 0 Output Total Balance 0 / 0 Weight last 48 hrs Weight 40.37 kg Physical Exam Narrative: Exam deferred because of comfort measures status only. Urinary Catheter Management: Manley: Cath Placed During This Visit: yes Reason for Continuing Indwelling Catheter: Hospice/Comfort/Palliative Care Urinary Catheter Date of Insertion: 01/16/22 Urinary Catheter Time of Insertion: 00:00 Data : 01/15/22 13:53 01/15/22 13:53 Micro: Microbiology 01/15/22 14:33 Blood Culture - Preliminary Blood SPECIMEN COLLECTED 01/15/22 13:53 Blood Culture - Preliminary Blood SPECIMEN COLLECTED A&P Assessment and plan (1) Sepsis: (2) Acute renal failure: (3) Acute hyperkalemia: (4) Anemia: (5) Ulcerative rectosigmoiditis with fistula: (6) History of creation of ostomy: (7) Rectal mass: (8) Colonic mass: (9) Pulmonary embolism: (10) DVT (deep venous thrombosis): (11) S/P IVC filter: (12) Multiple lacunar infarcts: (13) Protein calorie malnutrition: (14) Muscular deconditioning: Plan 71-year-old female with significant surgical and oncological history post debulking surgery, ostomy creation with rectosigmoid fistula to open presented to the ER in altered condition with a history of severe protein energy malnutrition in past found to have anemia, leukocytosis, acute renal failure with hyperkalemia. Goals of care discussion done with at bedside. As per the patient had opted against any kind of medical treatment in the past for the malignancy and all she wanted to do was be comfortable and . We discussed currently she is extremely sick and to treat her she would need multiple days of IV antibiotics, possible pressors, need of dialysis with ascites and a dialysis catheter in place. We also discussed even after all of this it is quite possible that she would not improve given her underlying severe deconditioning and malignancy. stated all he wants just to make sure that the patient remains comfortable and would not want to do anything beyond that. We discussed the option of hospice. wants to go ahead with hospice possibly at home. We also discussed hospice would mean that if and when her heart stops or she is not able to breathe on her own we will not do any aggressive treatment like chest compressions or mechanical ventilation and our goals will be to make her comfortable and nature takes its own course which would eventually mean that she would . verbalized understanding and is agreeable. Admit to MedSurg. Morphine, Ativan as needed. Finish 2 unit of blood transfusion which were already ordered and going on in the ER. Attestations Medical Necessity Statement*: Requires further hospitalization for hospice care while comfortable discharge planning is sought. Time Spent in Patient Care: less than 15 minutes Coding Level of Care Code Acute Supervisor [facility] Fwd Diagnoses Sepsis A41.9 Acute renal failure N17.9 Acute hyperkalemia E87.5 Anemia D64.9 Ulcerative rectosigmoiditis with fistula K51.313 History of creation of ostomy Z93.9 Rectal mass K62.89 Colonic mass K63.89 Pulmonary embolism I26.99 DVT (deep venous thrombosis) I82.409 S/P IVC filter Z95.828 Multiple lacunar infarcts I63.81 Protein calorie malnutrition E46 Muscular deconditioning R29.898
[2022-01-16 20:00] VITALS: BP 95/55; PULSE 102; RESP 15; TEMP 36.8; O2SAT 95
--- NOTE | 2022-01-16 21:04 | PC.NURSE ---
took some sips of water
[2022-01-16] MEDS: glycopyrrolate 0.2 mg/mL SDV 2 mL IV (22:38)
[2022-01-17 03:49] VITALS: RESP 18
[2022-01-17] MEDS: morphine 4 mg/mL SDV 1 mL 2 MG IVP (03:49)
[2022-01-17 07:36] VITALS: BP 130/73; PULSE 94; RESP 15; TEMP 36.7; O2SAT 96
[2022-01-17] MEDS: diphenhydrAMINE 50 mg/mL SDV 1mL 25 MG IVP (07:54)
--- NOTE | 2022-01-17 12:14 | PC.CHAP ---
Pastoral Care Encounter/Spiritual Assessment Type of Contact [] Declined medical director of hospice visit [] Patient/Family/Request visit [] Outpatient visit [] Follow-up visit [] Physician referral x [] Code/Alert [x] Routine visit [] Staff referral [x] Actively dying [] Patient sleeping [] Family support [] [] Out of room [] Palliative care [] [] Receiving care in room [] Pre-surgical visit [] Trauma [] Long length of stay [] ICU visit [] Other: Relational/Emotional Strength [x] Patient feels connected with others/family/visitors/staff [] Distress [] Loneliness/isolation [] Abandonment Spirituality of Patient x] Person of [place] [] Attends Synagogue of their [place] [x] Believes in Prayer [] Reads Bible or Rastafari materials [] There are Spiritual issues to be addressed Conditioner Tumbler Operator Interventions [x] Prayer []x Active listening [] Non-anxious presence [] Spiritual/emotional support [] Crisis/trauma care [] Spiritual counseling [] Bereavement support [] Provided bereavement packet [] Provided Bible/devotional materials [] Provided toy/stuffed animal, coloring book to patient or family member [] Provided Communion [] Anointing/[place] [] Salvation [] Completed spiritual assessment [] Other: Impact on Illness or Injury [] Angry [] Fearful [] Anxious [] Often cries [] Exhaustion [] Unable to work [] Unable to attend islam [] Unable to walk/stand [] Unable to read [] Unable to drive [] Unable to eat/drink [] Unable to sleep [] Unable to be with family [] Patient intubated [] Other: Summary patient going home on hospise Time spent with patient 20 min
--- NOTE | 2022-01-17 13:09 | P.DS_ITS ---
Discharge Providers Date of Admission: 01/15/22 17:39 Date of Discharge: January 17, 2022 Attending Provider at Admission: Kurt Scanlon MD Attending Provider at Discharge: Chela Abrams MD Primary Care Provider: Lyndsey De APN Diagnoses at Discharge Discharge Diagnosis (1) Sepsis: Status: Acute (2) Acute renal failure: Status: Acute (3) Acute hyperkalemia: Status: Acute (4) Anemia: Status: Acute (5) Ulcerative rectosigmoiditis with fistula: Status: Acute (6) History of creation of ostomy: Status: Acute Permanent problem details: x2 (7) Rectal mass: Status: Acute (8) Colonic mass: Status: Acute (9) Pulmonary embolism: Status: Acute (10) DVT (deep venous thrombosis): Status: Acute (11) S/P IVC filter: Status: Acute (12) Multiple lacunar infarcts: Status: Acute (13) Protein calorie malnutrition: Status: Acute (14) Muscular deconditioning: Status: Acute Reason for Visit Reason for Visit: stroke like symptoms Brief History: Teresa Jha is a 71 year old female with past medical history of 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 As per the patient knows she has cancer for which she decided only to have the surgery but not to have any further treatments.? She has been feeling sick, getting weaker over the last few weeks, getting more and more altered for which he has been trying for her to see a physician but she continued to refuse.? Today she became extremely noncognitive sent so he brought her to the ER. As per the patient has a history of recurrent episodes of anemia with multiple blood transfusion.? He states there is always blood leaking through the fistula.? He has not noticed her to have any fevers. ER course: On presentation to the ER patient was found to be hypotensive for which she required sepsis bolus of fluid after which her blood pressures impro saran.? She was ordered 2 units of blood transfusion and the first unit was ongoing on my examination.? She received a dose of vancomycin and Zosyn. Blood work was done which came back to be white count of 40,000, hemoglobin of 5.4, INR 1.26, chemistry showing sodium of 132, potassium of 6.5, anion gap of 29, BUN of 70, creatinine of 6.8, lactate of 5.[address] chest abdomen pelvis as below. Hospital Course Hospital Course Patient's family is present at bedside. 71-year-old female with significant surgical and oncological history post debulking surgery, ostomy creation with rectosigmoid fistula to open presented to the ER in altered condition with a history of severe protein energy malnutrition in past found to have anemia, leukocytosis, acute renal failure with hyperkalemia. Goals of care discussion done with at bedside.? As per the patient had opted against any kind of medical treatment in the past for the malignancy and all she wanted to do was be comfortable and .? We discussed currently she is extremely sick and to treat her she would need multiple days of IV antibiotics, possible pressors, need of dialysis with ascites and a dialysis catheter in place.? We also discussed even after all of this it is quite possible that she would not improve given her underlying severe deconditioning and malignancy. stated all he wants just to make sure that the patient remains comfortable and would not want to do anything beyond that.? We discussed the option of hospice.? wants to go ahead with hospice possibly at home. All of the above discussion was done with the family by the admitting physician. I took over her care today. Discussed with the family and they would like to opt for hospice and to go home with [address] [place] [address]. Patient will be DNR/DNI. Family requesting for liquid tylenol instead of morphine. They would like to remove rodas catheter. Hospital bed will be setup. Physical Exam Narrative: Lungs:diminished at bases, some ronchi present throughout [place] abdomen: mildly tender at lower quadrants, no guarding or rigidity, no distention, Overall ill appearing female with NC, family at bedside Exam limited due to comfort measure status Urinary Catheter Management: Rodas: Cath Placed During This Visit: yes Reason for Continuing Indwelling Catheter: Hospice/Comfort/Palliative Care Urinary Catheter Date of Insertion: 01/16/22 Urinary Catheter Time of Insertion: 00:00 Discharge Data Studies Completed and Pending Completed Studies During Hospitalization Category [place] [id number] Stat Cat Scan 01/15/22 14:[address] head wo con* [id number] Stat Cat Scan 01/15/22 13:28 Completed XR chest 1V portable [id number] Stat Exams 01/15/22 13:24 Completed Pending at discharge Category Date Time Status Blood Culture Stat Lab 01/15/22 14:33 Results C DIFF [Clostridioides Difficile PCR] Stat Lab 01/15/22 16:30 Uncollected Radiology Impressions Chest X-Ray 01/15/22 13:24 IMPRESSION: There is mild peribronchial wall thickening; query viral infection/bronchitis, chronic bronchitis and/or asthma. Head CT 01/15/22 13:28 IMPRESSION: 1. Small lacunar infarcts within/adjacent to the basal ganglia, bilaterally, that appear new from prior. If clinically concerned for acute lacunar infarct, consider MRI. 2. Mild presumed small vessel ischemic disease of indeterminate age. 3. No acute intracranial hemorrhage. Chest/Abdomen/Pelvis CT 01/15/22 14:39 IMPRESSION: 1. Comparison chest CT 05/20/2021. Interval development of multiple noncalcified pulmonary nodules suspicious for metastatic lesions, measuring up to 9 mm in the anterior right upper lobe as described above. 2. Some interval improvement of previously noted clustered tree-in-bud peripheral nodular opacities suggesting improvement of nonspecific bronchiolitis. No acute lung consolidation or ground-glass opacity. 3. Coronary calcification and hiatal hernia. IMPRESSION: 1. Comparison CT 07/23/2021 and 05/20/2021. History of colorectal cancer was provided on prior report. Exam is limited due to artifacts and lack of contrast. 2. Presumed prior segmental colonic resection with left periumbilical ostomy with no obvious regional acute complications. 3. Significant interval increase of ill-defined heterogeneous pelvic soft tissue mass, likely rectal-distal sigmoid/perirectal in origin. The anterior margin probably demonstrates invasion through the midline inferior abdominal wall as described. It probably displaces the uterus to the right and causes bilateral distal ureteral obstruction. Interval development of bilateral mild-moderate hydronephrosis and hydroureter. 4. Distal rectal wall thickening which could be related to neoplastic process however superimposed inflammatory/infectious process can not be excluded. No obvious drainable abscess. 5. Uterus is poorly outlined however it is probably deviated/displaced toward the right side with markedly distended endometrial cavity suggesting probable obstruction or tumor involvement at the cervix level. Additional imaging by contrast-enhanced CT or ultrasound may be obtained if clinically indicated. 6. Otherwise no free air or obvious bowel obstruction or pneumatosis. COMMENTS: For patients with an IVC filter, recommend assessment for a management plan for the patient's IVC filter. If there is no established management plan, recommend referral to an interventional clinician on a nonemergent basis for evaluation. Laboratory Results WBC 40.1 10^3/uL (4.0-10.0) H* 01/15/22 13:53 RBC 2.09 10^6/uL (4.1-5.3) L 01/15/22 13:53 Hgb 5.4 g/dL (11.5-15.3) L* 01/15/22 13:53 Hct 18.7 % (37.0-47.0) L* 01/15/22 13:53 MCV 89.5 fl (81-99) 01/15/22 13:53 MCH 25.8 pg (28.0-34.0) L 01/15/22 13:53 MCHC 28.9 g/dL (30.0-36.0) L 01/15/22 13:53 RDW 18.6 % (12.1-15.1) H 01/15/22 13:53 Plt Count 361 10^3/cmm (130-400) 01/15/22 13:53 MPV 9.1 fL (7.4-10.4) 01/15/22 13:53 Neut % (Auto) 94.2 % 01/15/22 13:53 Lymph % (Auto) 0.8 % 01/15/22 13:53 [place] % (Auto) 1.7 % 01/15/22 13:53 Eos % (Auto) 0.0 % 01/15/22 13:53 Baso % (Auto) 0.2 % 01/15/22 13:53 Neut # (Auto) 37.83 10^3/uL (1.8-7.7) H 01/15/22 13:53 Lymph # (Auto) 0.3 10^3/uL (0.8-4.8) L 01/15/22 13:53 [place] # (Auto) 0.7 10^3/uL (0.2-0.9) 01/15/22 13:53 Eos # (Auto) 0.0 10^3/uL (0.0-0.8) 01/15/22 13:53 Baso # (Auto) 0.1 10^3/uL (0.0-0.1) 01/15/22 13:53 Nucleated RBC % (auto) 0 % 01/15/22 13:53 Nucleated RBCs # 0.0 /100WBC 01/15/22 13:53 PT 16.10 SECONDS (12.1-14.9) H 01/15/22 13:53 INR 1.26 (0.8-1.2) H 01/15/22 13:53 APTT 39.7 SECONDS (23.9-36.7) H 01/15/22 13:53 Sodium 132 mmol/L (136-145) L 01/15/22 13:53 Potassium 6.5 mmol/L (3.5-5.1) H* 01/15/22 13:53 Chloride 96 mmol/L (98-107) L 01/15/22 13:53 Carbon Dioxide 14 mmol/L (22-29) L 01/15/22 13:53 Anion Gap 28.5 (5-19) H 01/15/22 13:53 BUN 70 mg/dL (8-23) H 01/15/22 13:53 Creatinine 6.8 mg/dL (0.5-0.9) H* 01/15/22 13:53 GFR Calculation Not Reportable 01/15/22 13:53 Glucose 116 mg/dL (65-115) H 01/15/22 13:53 Calculated Osmolality 295 mOsm/kg (285-295) 01/15/22 13:53 Lactic Acid 5.8 mmol/L (0.5-2.2) H* 01/15/22 13:53 Calcium 8.3 mg/dL (8.5-10.5) L 01/15/22 13:53 Total Bilirubin 0.2 mg/dL (0.15-1.2) 01/15/22 13:53 AST 14 U/L (0-32) 01/15/22 13:53 ALT < 5 U/L (0-33) 01/15/22 13:53 Alkaline Phosphatase 88 U/L (35-105) 01/15/22 13:53 Total Protein 5.8 g/dL (6.6-8.7) L 01/15/22 13:53 Albumin 2.2 g/dL (3.5-5.2) L 01/15/22 13:53 Globulin 3.6 g/dL (1.3-4.6) 01/15/22 13:53 Nasal Influ A H1 2008 PCR Not detected (NOT DETECT) 01/15/22 14:40 Coronavirus 229E (PCR) Not detected (NOT DETECT) 01/15/22 14:40 Influenza A (H1) PCR Not detected (NOT DETECT) 01/15/22 14:40 Influenza A (H3) PCR Not detected (NOT DETECT) 01/15/22 14:40 Influenza Type A (PCR) Not detected (NOT DETECT) 01/15/22 14:40 Influenza Type B (PCR) Not detected (NOT DETECT) 01/15/22 14:40 SARS-CoV-2 (PCR) Not detected (NOT DETECT) 01/15/22 14:40 Blood Type A Positive 01/15/22 13:53 Rho(D) Type Positive 01/15/22 13:53 Antibody Screen Negative 01/15/22 13:53 Crossmatch See Detail 01/15/22 13:53 Vitals Last Vital Signs Temp 98.1 F 01/17/22 07:36 Pulse 94 01/17/22 07:36 Resp 15 01/17/22 07:36 BP 130/73 01/17/22 07:36 Pulse Ox 96 01/17/22 07:36 O2 Del Method 01/17/22 07:36 Discharge Plan Discharge Patient Disposition: Hospice - Home Condition: Stable Prescriptions: Held Eliquis 5 mg tablet 5 mg PO BID Hold Instructions: hospice docusate sodium [Colace] 100 mg capsule 100 mg PO BID PRN (Reason: Constipation) Hold Instructions: hospice ferrous sulfate [Iron (ferrous sulfate)] 325 mg (65 mg iron) Tablet 325 mg PO BID Hold Instructions: hospice lorazepam 1 mg Tablet See Rx Instructions .ROUTE .COMPLEX PRN (Reason: Anxiety) Hold Instructions: hospice Rx Instructions: TAKE 1/2 TO 1 TAB BID NEEDED FOR 30 DAYS potassium 99 mg Tablet 198 mg PO BID Hold Instructions: hospice Discharge Orders: Discharge Order (Routine); Ordered 01/17/22 Ordered By: Chela Abrams Referrals: [facility] [Outside] De,LEATHA Solorio [Primary Care Provider] - 01/18/22 2:40 pm Discharge Diet: As Directed Discharge Activity: Resume usual activity and Oxygen as instructed Patient Instructions: Hospice Care (GEN) Activity Restrictions/Additional Instructions: [facility] will admit patient to their service. Patient to go home with hospice services Discharge Attestations Time Spent in Discharge Care*: greater than 30 min Quality Metrics Clinical Quality Measures [ No reported AMI, CVA or VTE this stay] Coding Level of Care Code Acute Chg FW DC note Diagnoses Sepsis A41.9 Acute renal failure N17.9 Acute hyperkalemia E87.5 Anemia D64.9 Ulcerative rectosigmoiditis with fistula K51.313 History of creation of ostomy Z93.9 Rectal mass K62.89 Colonic mass K63.89 Pulmonary embolism I26.99 DVT (deep venous thrombosis) I82.409 S/P IVC filter Z95.828 Multiple lacunar infarcts I63.81 Protein calorie malnutrition E46 Muscular deconditioning R29.898
[2022-01-20 11:07] LABS: Bacillus cereus group Not Detected (NOT DETECT); Bacillus subtillis group Not Detected (NOT DETECT); Corynebacterium Not Detected (NOT DETECT); Cutibacterium acnes (P.acnes) Not Detected (NOT DETECT); Enterococcus Not Detected (NOT DETECT); Enterococcus faecalis Not Detected (NOT DETECT); Enterococcus faecium Not Detected (NOT DETECT); Lactobacillus species Not Detected (NOT DETECT); Listeria Not Detected (NOT DETECT); Listeria monocytogenes Not Detected (NOT DETECT); Micrococcus Not Detected (NOT DETECT); Pan Candida Not Detected (NOT DETECT); Pan Gram-Negative Not Detected (NOT DETECT); Staphylococcus epidermidis Not Detected (NOT DETECT); Staphylococcus lugdunensis Not Detected (NOT DETECT); Staphylococcus species Not Detected (NOT DETECT); Streptococcus agalactiae Not Detected (NOT DETECT); Streptococcus anginosus group Not Detected (NOT DETECT); Streptococcus pneumoniae Not Detected (NOT DETECT); Streptococcus pyogenes Not Detected (NOT DETECT); Streptococcus species Not Detected (NOT DETECT)
[2022-01-20 11:11] LABS: Acinetobacter baumannii Not Detected (NOT DETECT); Bacteroides fragilis Not Detected (NOT DETECT); Citrobacter Not Detected (NOT DETECT); Cronobacter sakazakii Not Detected (NOT DETECT); Enterobacter cloacae complex Not Detected (NOT DETECT); Enterobacter non cloacae Not Detected (NOT DETECT); Fusobacterium necrophorum Not Detected (NOT DETECT); Fusobacterium nucleatum Not Detected (NOT DETECT); Haemophilus influenzae Not Detected (NOT DETECT); Klebsiella pneumoniae group Not Detected (NOT DETECT); Morganella morganii Not Detected (NOT DETECT); Neisseria meningitidis Not Detected (NOT DETECT); Pan Candida Not Detected (NOT DETECT); Pan Gram-Positive Not Detected (NOT DETECT); Proteus mirabilis Not Detected (NOT DETECT); Pseudomonas aeruginosa Not Detected (NOT DETECT); Salmonella Not Detected (NOT DETECT); Serratia Not Detected (NOT DETECT); Serratia marcescens Not Detected (NOT DETECT); Stenotrophomonas maltophilia Not Detected (NOT DETECT)
== END 2022-01-17 16:22 | disposition hospice, home (50) | DRG 871 ==
LOC: ER 13:28 → MEDSURG 01-16 06:47
PROVIDERS: Admitting Provider Student in an Organized Health Care Education/Training Program; Emergency Provider Emergency Medicine; PCP Nurse Practitioner Family; Visit Provider Internal Medicine
DX: A41.9 Sepsis, unspecified organism (principal); E43 Unspecified severe protein-calorie malnutrition; C19 Malignant neoplasm of rectosigmoid junction; Z68.1 Body mass index [BMI] 19.9 or less, adult; N17.9 Acute kidney failure, unspecified; K51.313 Ulcerative (chronic) rectosigmoiditis with fistula; Z93.3 Colostomy status; Z86.711 Personal history of pulmonary embolism; Z86.718 Personal history of other venous thrombosis and embolism; Z95.828 Presence of other vascular implants and grafts; D64.9 Anemia, unspecified; I95.9 Hypotension, unspecified; Z87.891 Personal history of nicotine dependence; E87.5 Hyperkalemia; Z86.73 Personal history of transient ischemic attack (TIA), and cerebral infarction without residual deficits; Z51.5 Encounter for palliative care; Z66 Do not resuscitate; R91.8 Other nonspecific abnormal finding of lung field
CPT/HCPCS: 36430; 51702; 70450; 71045; 71250; 74176; 80053; 83605; 85025; 85610; 85730; 86850; 86900; 86920; 87040; 87077; 87205; 87631; 87635; 92610; 93005; 96365; 96366; 96367; 99285; J0131; J1200; J2060; J2270; J3370; J3490; J7030; J7050; P9016